=== PATIENT | male | born 1950 | race Caucasian/White ===

== ENCOUNTER 2019-10-11 00:25 | Inpatient (IN) | payer MEDICARE, BC, SELFPAY ==
[2019-10-11] VITALS (63 sets, daily range): BP systolic 108–213; BP diastolic 62–128; PULSE 87–122; RESP 15–35; TEMP 36.6–37.2; O2SAT 93–100; BMI 38.9; BMI 35.5; BMI 35.6
--- NOTE | 2019-10-11 00:42 | EKG12_ITS ---
Test Reason : SOB Blood Pressure : / mmHG Vent. Rate : 114 BPM Atrial Rate : 114 BPM P-R Int : 168 ms QRS Dur : 122 ms QT Int : 344 ms P-R-T Axes : 033 -06 114 degrees QTc Int : 474 ms Sinus tachycardia with frequent Premature ventricular complexes Septal infarct , age undetermined ST & T wave abnormality, consider lateral ischemia Abnormal ECG Confirmed by DEVONTE SIMENTAL, ALEX ([id number]), slot editor JAKOB CALHOUN ([id number]) on 10/16/2019 2:53:15 PM Referred By: SD Confirmed By:ALEX WHITNEY MD
--- NOTE | 2019-10-11 00:44 | ED.VIS.DYS ---
History of Present Illness Chief Complaint: Shortness of Breath Informant: Patient Onset: Today - VARSHA Activity at onset: Sleep Timing: Continuous Quality: - - can't breathe, thought I was going to Current Severity: Moderate Maximum Severity: Severe Worsened by: Nothing Relieved by: Oxygen Associated Symptoms: Chills, Cough - w/ occ sputum production, for about a week, Sweats. Negative for: Fever, Sore throat Chest Pain: None Narrative: Healthy 69-year-old male who takes no medications has had a minor cough for the past week, went to bed without any difficulty no night and woke up an hour or 2 later suddenly short of breath and unable to breathe. Pulse ox 82% on room air per EMS. Denies any leg swelling. Patient presents during recent coronavirus national emergency declaration. He states in the last several weeks, he has gone to [place] several times, grocery store, but for the most part is been staying home. He is concerned because he has a with multiple sclerosis on immunosuppressive's. Patient states the oxygen has been helping some, and he is less short of breath now than he was before EMS arrived. He has no known history of chronic lung or heart disease. Past Medical History - Allergies and Home Meds Allergies/Adverse Reactions: Allergies No Known Allergies Allergy (Verified 10/11/19 00:30) Past Medical History: None Lives: Spouse/ Significant Other Smoking Status: Former smoker - Family History Maternal Family History: Reports: Diabetes Paternal Family History: Reports: - - His father from an aneurysm. Review of Systems General: Reports: Chills, Malaise, Sweats. Denies: Fever Eyes: Denies: Visual changes - bilaterally, Diplopia ENT: Denies: Rhinorrhea, Sore throat Cardiovascular: Denies: Chest pain, Palpitations Respiratory: Reports: Dyspnea, Cough, Sputum Gastrointestinal: Denies: Abdominal pain, Nausea, Vomiting, Diarrhea, Melena, Hematochezia Genitourinary: Denies: Dysuria, Hematuria, Frequency Musculoskeletal: Denies: Back pain, Swelling, Extremity Pain Skin: Denies: Rash, Wounds Neurological: Denies: Headache, Weakness, Numbness Physical Exam Vital Signs/Narrative: Vital Signs Temp Pulse Resp BP Pulse Ox 10/11/19 00:38 98 F 99 32 H 213/128 H 100 10/11/19 00:26 98 F 122 H 35 H 213/128 H 99 Inital Vital Signs reviewed: Yes General: Well nourished, Well developed, Acute Distress - Mild respiratory distress, speaking in 5-10 word sentences Head: Normocephalic, Atraumatic Eyes: Perrl, EOMI ENT: Moist mucous membranes, No rhinorrhea Neck: Supple, Nontender, No lymphadenopathy, No JVD Cardiovascular: Regular rate, Regular rhythm, No murmurs, Tachycardia Respiratory: No distress, CTA bilaterally, Chest nontender, Diminished - Throughout, symmetrically Abdomen: Soft, Nontender, Nondistended, Normal bowel sounds Back: Nontender, Normal Inspection Extremities: Nontender, No edema Skin: Normal color, No rash, Diaphoresis, No Trauma Neurological: Alert, Oriented x3, Cranial nerves II-XII grossly intact, Normal Strength, Normal Sensation Psychological: Normal affect, Normal Mood Diagnostic/Tx/Re-eval Impressions Chest X-Ray 10/11/19 01:25 IMPRESSION: There is bilateral perihilar pulmonary edema versus infiltrate worse on the RIGHT. There is no demonstrated pleural abnormality. Heart is enlarged. Electronically Signed: Ced Ramsey MD at 1:52 EDT , Service support , Chest CTA 10/11/19 01:37 IMPRESSION: There is no demonstrated pulmonary embolism. There is diffuse thickening of the pulmonary artery branches and the bronchi which is nonspecific but could indicate bronchiolitis/vasculitis. Normal thoracic aorta and visualized great vessels. There is no demonstrated aortic dissection. The heart is borderline enlarged. There is a tiny pericardial effusion. The lungs are expanded. There is bilateral pulmonary edema suggesting heart failure or fluid overload. There is small bilateral pleural effusions. There are NO pneumothoraces. There is opacity at the lung bases bilaterally suggesting atelectasis or less likely infiltrate. There is scattered cystic lung changes. Electronically Signed: Ced Ramsey MD at 2:41 EDT , Service support , 10/11/19 01:25 Chest 1 View (Portable) [RAD] Stat 10/11/19 01:37 CTA Chest W/WO Contrast [CT] Stat Laboratory Results 10/11/19 10/11/19 10/11/19 00:35 00:35 00:35 WBC 14.1 H RBC 5.30 Hgb 15.9 Hct 50.2 MCV 94.7 H MCH 30.0 MCHC 31.7 L RDW Std Deviation 45.7 H RDW Coeff of Duane 13.1 Plt Count 314 MPV 10.3 Immature Gran % (Auto) 0.500 Neut % (Auto) 73.2 H Lymph % (Auto) 19.2 [place]ois % (Auto) 4.8 Eos % (Auto) 1.7 Baso % (Auto) 0.6 Absolute Neuts (auto) 10.3 H Absolute Lymphs (auto) 2.70 Nucleated RBC % 0 Fibrinogen 626 H D-Dimer Quant (PE/DVT) 2.97 H* Sodium 143 Potassium 3.5 Chloride 108 H Carbon Dioxide 28.0 Anion Gap 7 BUN 27 H Creatinine 1.31 H Estim Creat Clear Calc 54.95 Est GFR (MDRD) Af Amer 70 Est GFR (MDRD) Non-Af 58 L BUN/Creatinine Ratio 20.6 H Glucose 135 H Lactic Acid Calcium 9.6 Ferritin Total Bilirubin 0.30 AST 36 ALT 62 H Alkaline Phosphatase 113 Troponin I 0.276 H B-Natriuretic Peptide Total Protein 7.9 Albumin 3.8 Globulin 4.1 Albumin/Globulin Ratio 0.9 Triglycerides Cholesterol LDL Cholesterol VLDL Cholesterol HDL Cholesterol Procalcitonin COVID-19 (NATHANIEL) 10/11/19 10/11/19 10/11/19 00:35 00:35 00:35 WBC RBC Hgb Hct MCV MCH MCHC RDW Std Deviation RDW Coeff of Duane Plt Count MPV Immature Gran % (Auto) Neut % (Auto) Lymph % (Auto) [place] % (Auto) Eos % (Auto) Baso % (Auto) Absolute Neuts (auto) Absolute Lymphs (auto) Nucleated RBC % Fibrinogen D-Dimer Quant (PE/DVT) Sodium Potassium Chloride Carbon Dioxide Anion Gap BUN Creatinine Estim Creat Clear Calc Est GFR (MDRD) Af Amer Est GFR (MDRD) Non-Af BUN/Creatinine Ratio Glucose Lactic Acid 1.5 Calcium Ferritin Total Bilirubin AST ALT Alkaline Phosphatase Troponin I B-Natriuretic Peptide 988.6 H Total Protein Albumin Globulin Albumin/Globulin Ratio Triglycerides Cholesterol LDL Cholesterol VLDL Cholesterol HDL Cholesterol Procalcitonin < 0.04 COVID-19 (NATHANIEL) 10/11/19 10/11/19 10/11/19 00:35 00:35 00:55 WBC RBC Hgb Hct MCV MCH MCHC RDW Std Deviation RDW Coeff of Duane Plt Count MPV Immature Gran % (Auto) Neut % (Auto) Lymph % (Auto) [place] % (Auto) Eos % (Auto) Baso % (Auto) Absolute Neuts (auto) Absolute Lymphs (auto) Nucleated RBC % Fibrinogen D-Dimer Quant (PE/DVT) Sodium Potassium Chloride Carbon Dioxide Anion Gap BUN Creatinine Estim Creat Clear Calc Est GFR (MDRD) Af Amer Est GFR (MDRD) Non-Af BUN/Creatinine Ratio Glucose Lactic Acid Calcium Ferritin 297 Total Bilirubin AST ALT Alkaline Phosphatase Troponin I B-Natriuretic Peptide Total Protein Albumin Globulin Albumin/Globulin Ratio Triglycerides 96 Cholesterol 186 LDL Cholesterol 114 VLDL Cholesterol 19 HDL Cholesterol 53 Procalcitonin COVID-19 (NATHANIEL) Cancelled - Rhythm Strip Rhythm Strip: Sinus Tach Rate: 115 Ectopy: PVC(s) - EKG Initial EKG Interpretation: No Acute Injury Pattern, Sinus Tachycardia, Non-Specific ST Changes - Diffuse, without STEMI or acute ST depressions, - - Anteroseptal Q waves Prior: No Prior Treatment - Dyspnea: Oxygen - High flow, Albuterol - MDI Repeat Evaluation: Improved - Medical Decision Making Patient presents during the national coronavirus emergency declaration, and his presentation is highly suspicious for COVID although certainly the differential includes other things such as noncardiogenic pulmonary edema, cardiogenic pulmonary edema, infectious etiologies otherwise including viruses and bacterial pneumonia, etc. Initially prior to studies being obtained, we managed the patient symptoms by giving him several puffs of albuterol and placing him on high flow nasal cannula. This resulted in significant improvement in his work of breathing, while maintaining his oxygenation. He was feeling better. The work-up so far is ambiguous but it does not necessarily provide the classic COVID-19 appearance. COVID swab was sent as was viral respiratory panel, and blood cultures. CT interpretation is less suspicious for infectious airspace etiology according to radiologist. Discussed with hospitalist for ICU admission and further work-up, evaluation, and treatment. Certainly, it is also possible that this is noninfectious altogether and that is a result of hypertensive emergency given his elevated pressures. I did not treat his pressures in the emergency department, but after being admitted, had further discussion with hospitalist about starting a nitroglycerin drip which he agreed was a good idea. Critical care time (excluding procedures): 30-74 minutes - 30 minutes, including time spent discussing with patient, consultants, arranging admission ED Disposition - Plan for ED Patient: Disposition: Acute [facility] Diagnosis: Acute respiratory failure with hypoxia, SIRS (systemic inflammatory response syndrome), Accelerated hypertension
[2019-10-11 00:53] LABS: Absolute Neutrophil Count 10.3 X10^3/uL (2.0-7.7); Basophil# 0.09 X10^3/uL; Basophil% 0.6 % (0-1); Eosinophil# 0.24 X10^3/uL; Eosinophils% 1.7 % (0-5); Hematocrit 50.2 % (40-54); Hemoglobin 15.9 g/dL (13.0-16.5); Lymphocyte % 19.2 % (19-41); Mean Corp Hgb Conc 31.7 g/dL (32-36); Mean Corpuscular Volume 94.7 fL (80-94); Mean Platelet Vol. 10.3 fl (6.2-12.0); Monocyte# 0.68 X10^3/uL; Monocyte% 4.8 % (0-10); NRBC Flagged by Analyzer 0 % (0-5); Neutrophil # 10.28 X10^3/uL (2.7-7.7); Neutrophil % 73.2 % (47-70); Platelet Count 314 K/mm3 (150-450); RBC Distribution Width CV 13.1 % (11.6-14.6); RBC Distribution Width SD 45.7 fl (35.1-43.9); White Blood Count 14.1 K/mm3 (4.4-11.0)
--- NOTE | 2019-10-11 01:00 | CPS ---
Pt placed on AIRVO. Work of breathing improved.
[2019-10-11 01:11] LABS: BNP,B-Type NATRIURETIC PEPTIDE 988.6 pg/mL (0-100)
[2019-10-11 01:13] LABS: Fibrinogen 626 mg/dl (203-444)
[2019-10-11 01:14] LABS: Lactic Acid 1.5 mmol/L (0.4-1.9)
[2019-10-11 01:16] LABS: ALB/GLOB Ratio 0.9 RATIO (0.9-2.4); AST(SGOT) 36 U/L (15-37); Alanine Aminotransfer ALT/SGPT 62 U/L (16-61); Albumin, Serum 3.8 g/dL (3.2-5.0); Alkaline Phosphatase 113 U/L (45-117); Anion Gap 7 (5-15); BUN 27 mg/dL (7-18); BUN/Creat Ratio 20.6 RATIO (10-20); Calcium,Total 9.6 mg/dL (8.5-10.1); Chloride 108 mmol/L (98-107); Creatinine, Serum 1.31 mg/dL (0.70-1.30); EST Glomerular Filtration Rate 58 mL/min (>60); Est Glom Filt Rate - Afr Amer 70 mL/min (>60); Estimated Creatinine Clearance 54.95 ml/min; Globulin 4.1 g/dL (2.2-4.2); Glucose 135 mg/dL (74-106); Potassium 3.5 mmol/L (3.5-5.1); Protein, Total 7.9 g/dL (6.4-8.2); Sodium Level 143 mmol/L (136-145)
[2019-10-11 01:23] LABS: D-Dimer Quantitative (DVT/PE) 2.97 FEU/ug/m (0.27-0.49)
--- NOTE | 2019-10-11 01:25 | RAD_ITS ---
STUDY: X-RAY CHEST REASON FOR EXAM: Male, 69 years old. shortness of breath TECHNIQUE: Frontal view COMPARISON: None. FINDINGS: There is bilateral perihilar pulmonary edema versus infiltrate worse on the RIGHT. There is no demonstrated pleural abnormality. Heart is enlarged. Normal mediastinum and simona. Normal visualized pulmonary arteries. Normal visualized aortic arch and descending thoracic aorta. Normal visualized thoracic spine. Normal visualized ribs, clavicles, and shoulders. There is no demonstrated abnormality of the visualized soft tissue structures of the upper abdomen. RAD/Chest 1 View (Portable) IMPRESSION: There is bilateral perihilar pulmonary edema versus infiltrate worse on the RIGHT. There is no demonstrated pleural abnormality. Heart is enlarged. Electronically Signed: Ced Ramsey MD at 1:52 EDT , Service support ,
--- NOTE | 2019-10-11 01:37 | CT_ITS ---
STUDY: CTA CHEST REASON FOR EXAM: Male, 69 years old. SOB, ELEVATED D-DIMER, CHILLS, COUGH. RADIATION DOSAGE (If Supplied By Facility): CTDIvol = ( 15.04 ) mGy, DLP = ( 607.13 ) mGycm TECHNIQUE: The examination was performed with the intravenous administration of IV 100mL Isovue-370. Post-processing of the angiographic images was performed, with multiplanar reformation and 3D reconstruction. Individualized dose optimization techniques were used for this CT. COMPARISON: Chest x-ray 10/11/2019 FINDINGS: Normal enhancement of the main pulmonary artery and right and left pulmonary arteries. Normal enhancement of the bilateral peripheral pulmonary arteries. There is no demonstrated pulmonary embolism. There is diffuse thickening of the pulmonary artery branches and the bronchi which is nonspecific but could indicate bronchiolitis/vasculitis. Normal thoracic aorta and visualized great vessels. There is no demonstrated aortic dissection. The heart is borderline enlarged. There is a tiny pericardial effusion. Normal mediastinum. Normal hilar regions. Normal visualized trachea and bronchi. The lungs are expanded. There is bilateral pulmonary edema suggesting heart failure or fluid overload. There is small bilateral pleural effusions. There are NO pneumothoraces. There is opacity at the lung bases bilaterally suggesting atelectasis or less likely infiltrate. There is scattered cystic lung changes. Normal chest wall structures. Normal osseous structures. Normal visualized upper abdomen. CT/CTA Chest W/WO Contrast IMPRESSION: There is no demonstrated pulmonary embolism. There is diffuse thickening of the pulmonary artery branches and the bronchi which is nonspecific but could indicate bronchiolitis/vasculitis. Normal thoracic aorta and visualized great vessels. There is no demonstrated aortic dissection. The heart is borderline enlarged. There is a tiny pericardial effusion. The lungs are expanded. There is bilateral pulmonary edema suggesting heart failure or fluid overload. There is small bilateral pleural effusions. There are NO pneumothoraces. There is opacity at the lung bases bilaterally suggesting atelectasis or less likely infiltrate. There is scattered cystic lung changes. Electronically Signed: Ced Ramsey MD at 2:41 EDT , Service support ,
--- NOTE | 2019-10-11 03:10 | HP.PCM_ITS ---
Problem List (1) Heart failure Status: Suspected (2) Acute respiratory failure with hypoxia Status: Acute (3) Tobacco abuse Status: Chronic History of Present Illness Date of Admission: 10/11/19 Chief Complaint: sob The patient is a 69 year old M with a significant history of obesity; leukoplakia of oral mucosa including tongue; and tobacco abuse who presents to the emergency department with sudden onset shortness of breath that woke him up from his sleep. His symptoms began a few hours before presentation. Associated with symptoms is productive cough for 1 week. The patient is unable to describe the color of his sputum since he swallows it. At emergency department reportedly patient was severely diaphoretic with his clothes soaked. Emergency department doctor reported that per EMS patient oxygen saturation was 82% on room air. Patient required nonrebreather mask and airvo at emergency department to maintain appropriate oxygen saturation. Patient mets criteria for Sirs and for which IV normal saline bolus was initially given at the emergency department. Chest x-ray was remarkable for bilateral infiltrates. BNP was elevated. Troponin was elevated. Chest CTA was remarkable for pulmonary edema and borderline cardiomegaly as well as a tiny pericardial effusion. Past Medical History Past Medical History (Chronic Problems): Chronic Problems (Last Reviewed 10/11/19 @ 04:[address] Sly Guadalupe MD) Tobacco abuse (Chronic) Medical History: Medical History (Last Reviewed 10/11/19 @ 04:[address] Sly Guadalupe MD) Obesity (BMI 30-39.9) (Acute) E66.9 Allergies No Known Allergies Allergy (Verified 10/11/19 00:30) Home Medications: Ambulatory Orders Medication Instructions Recorded NK 10/11/19 Surgical History: no surgical history Lives: Spouse/ Significant Other Smoking Status: Current every day smoker Tobacco Use: Pipe Alcohol: Occasional - *Family History Maternal History Items: Diabetes Paternal History Items: - - His father from an aneurysm. Review of Systems Constitutional: Denies: Chills, Fever, Weight Change HEENT: Denies: Head Aches, Sinus Congestion, Sinus Drainage Cardiovascular: Denies: Chest Pain, Orthopnea, Palpitations Respiratory: Reports: Cough, Shortness of Breath, Sputum production Gastrointestinal: Denies: Abdominal Pain, Nausea, Vomiting Genitourinary: Denies: Dysuria Musculoskeletal: Denies: Joint Pain, Joint Tenderness Skin: Denies: Rash, Wounds Neurological: Denies: Numbness, Tingling, Focal weakness Psychiatric: Denies: Anxiety, Depression, Homicidal Ideations, Suicidal Ideations Hematologic/ Lymphatic: Denies: Easy Bruising, Easy Bleeding VTE Information - Inpt Only VTE Present on Admission: No VTE Mechan Device Prophylaxis: None VTE Pharm Prophylaxis ordered?: Yes Patient Problems: Active and Suspected Problems (Last Reviewed 10/11/19 @ 04:[address] Sly Guadalupe MD) Acute respiratory failure with hypoxia (Acute) Heart failure (Suspected) Obesity (BMI 30-39.9) (Acute) - Physical Exam Vitals/I&O's: Vital Signs Temp Pulse Resp BP Pulse Ox 98.2 F 104 H 22 H 164/106 H 96 10/11/19 02:33 10/11/19 02:33 10/11/19 02:33 10/11/19 02:33 10/11/19 02:33 Oxygen Flow Rate (L/min) 60 Oxygen Delivery Method CPAP Weight: 123.1 kg Body Mass Index (BMI) 38.9 Intake and Output for Last 24 Hours 10/09/19 10/10/19 10/11/19 23:59 23:59 23:59 Intake Total 500 / 500 Balance 500 / 500 General: Alert, Oriented x3, Cooperative HEENT: Atraumatic, PERRLA, EOMI, Normocephalic Neck: Supple, No Nuchal Rigidity, Trachea Midline Lungs: Rales - Right base, Tachypneic, Wheezes - Right base Cardiovascular: Normal S1, Normal S2, No murmurs, Tachycardic Abdomen: Bowel Sounds Present, Soft, Non Tender Extremities: No edema, Capillary Refill Less than 3 Seconds Skin: No rashes, No breakdown Musculoskeletal: No Tenderness to Palpation of Joints or Extremities Neurological: Cranial nerves II-XII grossly intact Psych/Mental Status: Normal Affect, Appropriate Laboratory Results 10/11/19 00:35: WBC 14.1 H, RBC 5.30, Hgb 15.9, Hct 50.2, MCV 94.7 H, MCH 30.0, MCHC 31.7 L, RDW Std Deviation 45.7 H, RDW Coeff of Duane 13.1, Plt Count 314, MPV 10.3, Immature Gran % (Auto) 0.500, Neut % (Auto) 73.2 H, Lymph % (Auto) 19.2, [place] % (Auto) 4.8, Eos % (Auto) 1.7, Baso % (Auto) 0.6, Absolute Neuts (auto) 10.3 H, Absolute Lymphs (auto) 2.70, Nucleated RBC % 0 10/11/19 00:35: Fibrinogen 626 H, D-Dimer Quant (PE/DVT) 2.97 H* 10/11/19 00:35: Sodium 143, Potassium 3.5, Chloride 108 H, Carbon Dioxide 28.0, Anion Gap 7, BUN 27 H, Creatinine 1.31 H, Estim Creat Clear Calc 54.95, Est GFR (MDRD) Af Amer 70, Est GFR (MDRD) Non-Af 58 L, BUN/Creatinine Ratio 20.6 H, Glucose 135 H, Calcium 9.6, Total Bilirubin 0.30, AST 36, ALT 62 H, Alkaline Phosphatase 113, Troponin I 0.276 H, Total Protein 7.9, Albumin 3.8, Globulin 4.1, Albumin/Globulin Ratio 0.9 10/11/19 00:35: Lactic Acid 1.5 10/11/19 00:35: B-Natriuretic Peptide 988.6 H 10/11/19 00:55: COVID-19 (NATHANIEL) Cancelled Assessment/Plan All Active Problems (Last Reviewed 10/11/19 @ 04:[address] Sly Guadalupe MD) Acute respiratory failure with hypoxia (Acute) Obesity (BMI 30-39.9) (Acute) The patient is a 69 year old M with a significant history of obesity and tobacco abuse who presents emergency department with sudden onset shortness of breath; cough; and diaphoresis was found to be severe hypoxia; and met SIRS criteria of tachycardia; tachypnea and leukocytosis; and with elevated BNP and radiographic evidence of pulmonary edema consistent with acute hypoxemic respiratory failure likely secondary to congestive heart failure. Acute hypoxemic respiratory failure likely secondary to congestive heart failure. Place on monitored bed on the progressive care unit. Weight on admission to the floor; and then daily Strict I&O's CXR independently reviewed confirms cardiomegaly and bilateral pulmonary infiltrates. D-dimer was elevated. Follow-up chest CTA was also consistent with pulmonary edema, tiny pericardial effusion; and small bilateral pleural effusion. EKG independently reviewed confirms tachycardia with PVCs. BNP was 988.6. Troponin was 0.276; trend. Will give Lasix 80 mg IV push x1 and then 40 mg twice daily. Supplement potassium. Consider echocardiogram if cardiac screen is negative. Consider cardiology consult. Nitroglycerin paste x1 for possible flash pulmonary edema. Fluid restriction of 1500 mls daily 2 g cardiac diet Continue airvo with PEEP. COVID screen was ordered at the emergency department; follow. Procalcitonin and ferritin ordered. Sirs Heart rate of more than 90; respiratory rate of more than 20; white counts of more than 12,000. No definite source of bacterial infection. Likely secondary to hypoxemic respiratory failure. Treatment as above. Follow blood cultures. Elevated troponin Likely secondary to heart failure. Trend. Elevated transaminitis ALT mildly elevated at 62 (normal 16-61). Patient to follow-up longitudinally. AST is normal. Elevated creatinine On presentation his creatinine was 1.31; mild No previous creatinine on file to compare with. Could be baseline or secondary to heart failure. Trend. Tobacco abuse Patient smokes pipe. Counseled. Declined nicotine patch. Obesity: BMI 38.9. Complicates care. Lifestyle changes recommended. DVT prophylaxis: Subcutaneous Lovenox. Inpatient E&M: 85037 Init Hosp L3
[2019-10-11 03:45] LABS: Ferritin 297 ng/mL (26-388)
[2019-10-11 03:47] LABS: Cholesterol 186 mg/dL (200); High Density Lipoprotein 53 mg/dL; Triglycerides 96 mg/dL; Very Low Density Lipoprotein 19 mg/dL (5-40)
[2019-10-11] MEDS: Nitroglycerin Oint 1 INCH PACKET TRANSDERM. (03:48)
[2019-10-11] MEDS: Furosemide 100 MG/10 ML Vial 80 MG IV (03:49)
[2019-10-11] MEDS: guaiFENesin 1,200 MG Tablet 1200 MG PO ×2 (03:49→21:31)
[2019-10-11 03:56] LABS: Procalcitonin < 0.04 ng/mL (0.00-0.09)
[2019-10-11] MEDS: 0.9% Saline Lock 10 ML Syringe IV ×3 (03:58→18:14)
[2019-10-11] MEDS: Nitroglycerin Infusion 250 ML 6 MG CONT INF (04:39)
--- NOTE | 2019-10-11 04:51 | ECHOCS_ITS ---
Version 2 Reason For Study: DYSPNEA Procedure This was a 2D Doppler, Color Flow transthoracic echocardiogram. The study was technically difficult. Contrast injection was performed. Exam performed portable in ICU/CCU. Left Ventricle Normal LV size. The estimated ejection fraction is 20-25 %. Stage 1 diastolic dysfunction. There is severe global hypokinesis of the left ventricle. Right Ventricle Normal RV size. Normal systolic function. Atria Normal left atrium. Normal right atrium. No doppler evidence for ASD. Mitral Valve There is no mitral valve stenosis. Trivial mitral valve insufficiency. Tricuspid Valve There is no tricuspid stenosis. Trivial tricuspid valve insufficiency. Unable to estimate RV systolic pressure due to insufficient tricuspid regurgitant envelope. Aortic Valve Trisinus/trileaflet aortic valve. Aortic sclerosis, no stenosis. There is no aortic stenosis. No aortic valve insufficiency. Pulmonic Valve There is no pulmonic valvular stenosis. No pulmonic valve insufficiency. Great Vessels Normal aortic root. Pericardium/Pleural No pericardial effusion. Medication Diluted definity 4.0ml given slow IV push to enhance endocardial definition. MMode/2D Measurements & Calculations LVIDd: 6.1 cm IVSd: 1.1 cm Ao root diam: 4.2 cm LVIDs: 5.6 cm LVPWd: 1.2 cm RVDd: 4.0 cm FS: 8.5 % LAV(MOD-bp): 79.1 ml LVAd ap4: 65.9 cm2 SV(MOD-sp4): 75.5 ml LAV(MOD-bp) Indexed: 34.7 ml/m2 EDV(MOD-sp4): 341.0 ml LAV(MOD-sp2): 91.1 ml EDV(sp4-el): 349.8 ml LAV(MOD-sp4): 56.4 ml LVAs ap4: 55.5 cm2 ESV(MOD-sp4): 265.5 ml ESV(sp4-el): 275.4 ml EF(MOD-sp4): 22.1 % EF(sp4-el): 21.3 % SV(sp4-el): 74.4 ml LA A4 area: 19.1 cm2 LA dimension(2D): 4.4 cm RA A4 area: 20.3 cm2 Doppler Measurements & Calculations MV E max jay: 39.7 cm/sec Lat Peak E' Jay: 7.6 cm/sec Med Peak E' Jay: 3.5 cm/sec MV A max jay: 69.1 cm/sec E/E' lat: 5.3 E/E' med: 11.2 MV E/A: 0.57 Ao V2 max: 147.5 cm/sec LV V1 max: 86.0 cm/sec Ao max P.7 mmHg LV V1 max P.0 mmHg Interpretation Summary The estimated ejection fraction is 20-25 %. Stage 1 diastolic dysfunction. There is severe global hypokinesis of the left ventricle. Trivial mitral valve insufficiency. The study was technically difficult. Contrast injection was performed. Ordering Physician: Sly Guadalupe Referring Physician: KAVON HARMON Performed By: Ila Oakley, RDKAITLIN, RVT
--- NOTE | 2019-10-11 06:14 | PCM.CON.CC ---
Reason for Consult Date of Consultation: 10/11/19 Reason for Consultation: Acute hypoxemic respiratory failure History of Present Illness: The patient is a 69-year-old male, with a history as outlined below, who presented to the emergency department on October 10 with complaints of shortness of breath, which was rather acute in onset and awoke him from sleep. The patient denies ever having experienced an episode like this previously. He denies any known cardiac or pulmonary diseases. He is a current pipe smoker on a daily basis. He has never been evaluated previously with pulmonary function studies. He does not currently utilize inhalers at his baseline, nor is he oxygen dependent. The patient does report that he has always had elevated blood pressures but does not currently take any medications. On presentation to the emergency department, the patient was noted to be afebrile but was significantly hypertensive with a blood pressure of 213/128. The patient was noted to be tachypneic and hypoxemic as well. Laboratory evaluation revealed an elevated white blood cell count of 14,000. D-dimer was elevated to 2.97. Creatinine was noted to be 1.31. Initial troponin was increased to 0.274. BNP was elevated to 988. Procalcitonin level was normal. CTA chest revealed no evidence for pulmonary embolism. There was evidence of bilateral pulmonary edema along with bilateral pleural effusions. The patient received IV Lasix and was started on a nitro infusion. He was placed on Airvo and admitted to the medical intensive care unit for further management. Overnight, the patient has diuresed well. Blood pressures have improved and he is currently maintaining appropriate oxygen saturations on 3 L/min. Surface echocardiogram has been ordered and is currently pending. Past Medical History Past Medical History (Chronic Problems): Chronic Problems (Last Reviewed 10/11/19 @ 04:[address] Sly Guadalupe MD) Tobacco abuse (Chronic) Medical History: Medical History (Last Reviewed 10/11/19 @ 04:[address] Sly Guadalupe MD) Obesity (BMI 30-39.9) (Acute) E66.9 Allergies No Known Allergies Allergy (Verified 10/11/19 00:30) Home Medications: Ambulatory Orders Medication Instructions Recorded NK 10/11/19 Surgical History: no surgical history Lives: Spouse/ Significant Other Smoking Status: Current every day smoker Tobacco Use: Pipe Alcohol: Occasional - *Family History Maternal History Items: Diabetes Paternal History Items: - - His father from an aneurysm. Review of Systems Constitutional: Denies: Chills, Fever Eyes: Denies: Blurred vision, Double vision HEENT: Denies: Head Aches, Sinus Congestion, Sinus Drainage Cardiovascular: Denies: Chest Pain Respiratory: Reports: Shortness of Breath. Denies: Cough Gastrointestinal: Denies: Abdominal Pain, Nausea, Vomiting Genitourinary: Denies: Dysuria Musculoskeletal: Denies: Joint Pain, Joint Tenderness Skin: Denies: Rash, Wounds Neurological: Denies: Numbness, Tingling, Focal weakness Psychiatric: Denies: Anxiety, Depression, Homicidal Ideations, Suicidal Ideations Hematologic/ Lymphatic: Denies: Easy Bruising, Easy Bleeding Patient Problems: Active and Suspected Problems (Last Reviewed 10/11/19 @ 04:[address] Sly Guadalupe MD) Acute respiratory failure with hypoxia (Acute) Heart failure (Suspected) Obesity (BMI 30-39.9) (Acute) Objective: The patient's most recent lab work, culture data and imaging studies have all been personally reviewed. Coronavirus PCR was negative. Respiratory viral panel was negative. Blood cultures are pending. - Physical Exam Vitals/I&O's: Vital Signs Temp Pulse Resp BP Pulse Ox 98.1 F 88 15 133/87 H 99 10/11/19 03:30 10/11/19 06:00 10/11/19 06:00 10/11/19 06:00 10/11/19 06:00 Oxygen Flow Rate (L/min) 4 Oxygen Delivery Method Nasal Cannula Weight: 247 lb 12.793 oz Body Mass Index (BMI) 35.5 Intake and Output for Last 24 Hours 10/09/19 10/10/19 10/11/19 23:59 23:59 23:59 Intake Total 508.1 / 508.1 Output Total 300 / 300 Balance 208.1 / 208.1 General: Alert, Oriented x3, Cooperative, No apparent distress, - - Sitting at the bedside eating breakfast. HEENT: Atraumatic, PERRLA, Normocephalic Oral: No Gingival or Mucosal Lesions/ Ulcerations Neck: Supple, No Nodes, Trachea Midline Lungs: Normal air movement, No rhonchi, No wheeze, No rales Cardiovascular: Regular rate, Regular Rhythm, Normal S1, Normal S2 Abdomen: Bowel Sounds Present, Soft, Non Tender, Obese Extremities: No clubbing, No cyanosis, No edema Skin: No breakdown Musculoskeletal: No Muscle Wasting Lymphatic: No Cervical, Supraclavicular, or Inguinal Adenopathy Neurological: Neuro grossly intact Psych/Mental Status: Normal Affect, Appropriate Labs (Last 48 Hours) 10/11/19 10/11/19 10/11/19 00:35 00:35 00:35 WBC 14.1 H RBC 5.30 Hgb 15.9 Hct 50.2 MCV 94.7 H MCH 30.0 MCHC 31.7 L RDW Std Deviation 45.7 H RDW Coeff of [place] 13.1 Plt Count 314 MPV 10.3 Immature Gran % (Auto) 0.500 Neut % (Auto) 73.2 H Lymph % (Auto) 19.2 [place] % (Auto) 4.8 Eos % (Auto) 1.7 Baso % (Auto) 0.6 Absolute Neuts (auto) 10.3 H Absolute Lymphs (auto) 2.70 Nucleated RBC % 0 Fibrinogen 626 H D-Dimer Quant (PE/DVT) 2.97 H* Sodium 143 Potassium 3.5 Chloride 108 H Carbon Dioxide 28.0 Anion Gap 7 BUN 27 H Creatinine 1.31 H Estim Creat Clear Calc 54.95 Est GFR (MDRD) Af Amer 70 Est GFR (MDRD) Non-Af 58 L BUN/Creatinine Ratio 20.6 H Glucose 135 H Lactic Acid Calcium 9.6 Ferritin Total Bilirubin 0.30 AST 36 ALT 62 H Alkaline Phosphatase 113 Troponin I 0.276 H B-Natriuretic Peptide Total Protein 7.9 Albumin 3.8 Globulin 4.1 Albumin/Globulin Ratio 0.9 Triglycerides Cholesterol LDL Cholesterol VLDL Cholesterol HDL Cholesterol Procalcitonin COVID-19 (NATHANIEL) 10/11/19 10/11/19 10/11/19 00:35 00:35 00:35 WBC RBC Hgb Hct MCV MCH MCHC RDW Std Deviation RDW Coeff of [place] Plt Count MPV Immature Gran % (Auto) Neut % (Auto) Lymph % (Auto) [place] % (Auto) Eos % (Auto) Baso % (Auto) Absolute Neuts (auto) Absolute Lymphs (auto) Nucleated RBC % Fibrinogen D-Dimer Quant (PE/DVT) Sodium Potassium Chloride Carbon Dioxide Anion Gap BUN Creatinine Estim Creat Clear Calc Est GFR (MDRD) Af Amer Est GFR (MDRD) Non-Af BUN/Creatinine Ratio Glucose Lactic Acid 1.5 Calcium Ferritin Total Bilirubin AST ALT Alkaline Phosphatase Troponin I B-Natriuretic Peptide 988.6 H Total Protein Albumin Globulin Albumin/Globulin Ratio Triglycerides Cholesterol LDL Cholesterol VLDL Cholesterol HDL Cholesterol Procalcitonin < 0.04 COVID-19 (NATHANIEL) 10/11/19 10/11/19 10/11/19 00:35 00:35 00:55 WBC RBC Hgb Hct MCV MCH MCHC RDW Std Deviation RDW Coeff of [place] Plt Count MPV Immature Gran % (Auto) Neut % (Auto) Lymph % (Auto) [place] % (Auto) Eos % (Auto) Baso % (Auto) Absolute Neuts (auto) Absolute Lymphs (auto) Nucleated RBC % Fibrinogen D-Dimer Quant (PE/DVT) Sodium Potassium Chloride Carbon Dioxide Anion Gap BUN Creatinine Estim Creat Clear Calc Est GFR (MDRD) Af Amer Est GFR (MDRD) Non-Af BUN/Creatinine Ratio Glucose Lactic Acid Calcium Ferritin 297 Total Bilirubin AST ALT Alkaline Phosphatase Troponin I B-Natriuretic Peptide Total Protein Albumin Globulin Albumin/Globulin Ratio Triglycerides 96 Cholesterol 186 LDL Cholesterol 114 VLDL Cholesterol 19 HDL Cholesterol 53 Procalcitonin COVID-19 (NATHANIEL) Cancelled 10/11/19 03:35 WBC RBC Hgb Hct MCV MCH MCHC RDW Std Deviation RDW Coeff of [place] Plt Count MPV Immature Gran % (Auto) Neut % (Auto) Lymph % (Auto) [place] % (Auto) Eos % (Auto) Baso % (Auto) Absolute Neuts (auto) Absolute Lymphs (auto) Nucleated RBC % Fibrinogen D-Dimer Quant (PE/DVT) Sodium Potassium Chloride Carbon Dioxide Anion Gap BUN Creatinine Estim Creat Clear Calc Est GFR (MDRD) Af Amer Est GFR (MDRD) Non-Af BUN/Creatinine Ratio Glucose Lactic Acid Calcium Ferritin Total Bilirubin AST ALT Alkaline Phosphatase Troponin I 0.274 H B-Natriuretic Peptide Total Protein Albumin Globulin Albumin/Globulin Ratio Triglycerides Cholesterol LDL Cholesterol VLDL Cholesterol HDL Cholesterol Procalcitonin COVID-19 (NATHANIEL) Microbiology 10/11/19 00:55 Mucosa - Nasopharyngeal Coronavirus COVID-19 PCR - Final 10/11/19 01:15 Mucosa - Nose Respiratory Panel (PCR) - Preliminary Clinical Impression(s) from Imaging Studies Chest X-Ray 10/11/19 01:25 IMPRESSION: There is bilateral perihilar pulmonary edema versus infiltrate worse on the RIGHT. There is no demonstrated pleural abnormality. Heart is enlarged. Electronically Signed: Ced Ramsey MD at 1:52 EDT , Service support , Chest CTA 10/11/19 01:37 IMPRESSION: There is no demonstrated pulmonary embolism. There is diffuse thickening of the pulmonary artery branches and the bronchi which is nonspecific but could indicate bronchiolitis/vasculitis. Normal thoracic aorta and visualized great vessels. There is no demonstrated aortic dissection. The heart is borderline enlarged. There is a tiny pericardial effusion. The lungs are expanded. There is bilateral pulmonary edema suggesting heart failure or fluid overload. There is small bilateral pleural effusions. There are NO pneumothoraces. There is opacity at the lung bases bilaterally suggesting atelectasis or less likely infiltrate. There is scattered cystic lung changes. Electronically Signed: Ced Ramsey MD at 2:41 EDT , Service support , Current Medications Dextrose (D50w Syringe) 0 gm IV X1 PRN; Protocol PRN Reason: Hypoglycemia Enoxaparin Sodium (Lovenox) 40 mg SC DAILY KIM Furosemide (Lasix) 40 mg IV BID@1000,1800 KIM Glucagon () 1 mg IM .X1 PRN PRN Reason: Hypoglycemia Guaifenesin (Mucinex) 1,200 mg PO BID [facility] Last Admin: 10/11/19 03:49 Dose: 1,200 mg Documented by: Sodium Chloride () 250 mls @ 15 mls/hr IV .[id number] PRN PRN Reason: Saline Flush Sodium Chloride () 250 mls @ 15 mls/hr IV .[id number] PRN PRN Reason: Additional IVPB Infusion Nitroglycerin/Dextrose () 250 mls @ 6 mls/hr CONT INF .[id number] [facility]; Protocol Last Titration: 10/11/19 06:00 Dose: 15 mcg/min, 9 mls/hr Documented by: Potassium Chloride (K-Dur) 40 meq PO DAILYCM KIM Sodium Chloride () 10 - 40 ml IV UD PRN PRN Reason: SALINE FLUSH Last Admin: 10/11/19 03:58 Dose: 20 ml Documented by: Assessment/Plan Active and Suspected Problems (Last Reviewed 10/11/19 @ 04:[address] Sly Guadalupe MD) Acute respiratory failure with hypoxia (Acute) Heart failure (Suspected) Obesity (BMI 30-39.9) (Acute) RECOMMENDATIONS: 1. Start p.o. antihypertensive regimen and wean from nitro infusion. 2. Continue diuretic therapy as tolerated by renal function and hemodynamics. 3. Echocardiogram is pending. 4. Wean supplemental oxygen to maintain saturations at or above 90%. 5. Encourage incentive spirometer use and mobilize patient as tolerated. IMPRESSIONS: 1. Acute hypoxemic respiratory failure Likely secondary to decompensated heart failure in the setting of poorly controlled hypertension. The patient has responded appropriately to IV diuretic therapy, which will be continued. Echocardiogram is currently pending. Cardiology consultation is also pending. The patient will be weaned from supplemental oxygen to maintain saturations at or above 90%. Encourage incentive spirometer use and mobilize patient as tolerated. 2. Hypertension/troponin elevation The patient presented to the hospital with systolic pressures in excess of 200 mmHg. He is not currently on any antihypertensives at his baseline. Will defer antihypertensive regimen initiation to cardiology. Wean from nitro infusion as tolerated. Await results of echocardiogram. 3. History of tobacco dependency/obesity Complicates care, management, recovery and prognosis. The patient is a daily pipe smoker. If agreeable, the patient can follow-up after discharge in the pulmonary medicine clinic so that baseline PFTs can be obtained. This note was generated with [employer] dictation software. It may contain incorrect words, spelling, and punctuation that were not noted in checking the note before signing. Inpatient E&M: 29435 Init Hosp L3
--- NOTE | 2019-10-11 09:02 | CON.PCM_ITS ---
<Jeffrey Loredo - Last Filed: 10/11/19 11:42> Reason for Consult Date of Consultation: 10/11/19 Reason for Consultation: CHF History of Present Illness: The patient is a 69 year old M who presented to [facility] Emergency Department on 10/11/2019 with shortness of breath that woke him up from sleep, minor cough over the past week, and pulse ox at 82% per EMS. He was transferred to Emergency Room for further evaluation. He has a past medical history of leukoplakia of oral mucosa including tongue, obesity, and tobacco abuse. His blood pressure upon presentation to emergency department his blood pressure was 213/128, respiratory rate 35, and pulse of 122. His chest CTA was negative for pulmonary embolism or aortic dissection. His chest x-ray revealed bilateral perihilar pulmonary edema versus infiltrate worse on the right. His EKG revealed tachycardia with PVCs. His WBC was noted be 14.1. Hemoglobin noted be 15.9. Platelet count 314. His d-dimer was elevated at 2.97. His laboratory work included WBC: 14.1, hemoglobin: 15.9, platelet count: 314, d-dimer: 2.97, sodium: 143, potassium: 3.5, BUN: 27, creatinine: 1.31, troponin: 0.276, and BNP of 988.6. He underwent COVID?19 testing. He was admitted for further evaluation and treatment of respiratory failure secondary to congestive heart failure. Patient was started on Lasix 40 mg p.o. twice daily after Lasix 80 mg IV push once. He was started a nitroglycerin drip for blood pressure control. An echocardiogram was ordered. Cardiology was consulted for further input. Past Medical History Allergies/Adverse Reactions: Allergies No Known Allergies Allergy (Verified 10/11/19 00:30) Home Medications: Ambulatory Orders Medication Instructions Recorded NK 10/11/19 Past Medical History (Chronic Problems): Chronic Problems (Last Reviewed 10/11/19 @ 04:[address] Sly Guadalupe MD) Tobacco abuse (Chronic) Surgical History: no surgical history - *Family History Maternal History Items: Diabetes Paternal History Items: - - His father from an aneurysm. Lives: Spouse/ Significant Other Smoking Status: Current every day smoker Tobacco Use: Pipe Alcohol: Occasional Objective: Vital Signs Temp Pulse Resp BP Pulse Ox 98.1 F 90 22 H 130/99 H 96 10/11/19 08:00 10/11/19 08:00 10/11/19 08:00 10/11/19 08:00 10/11/19 08:00 Oxygen Flow Rate (L/min) 3 Oxygen Delivery Method Nasal Cannula Weight: 240 lb 8.389 oz Body Mass Index (BMI) 35.5 Intake and Output for Last 24 Hours 10/09/19 10/10/19 10/11/19 23:59 23:59 23:59 Intake Total 766.10 / 766.10 Output Total 2200 / 2200 Balance -1433.90 / -1433.90 10/11/19 00:35: WBC 14.1 H, RBC 5.30, Hgb 15.9, Hct 50.2, MCV 94.7 H, MCH 30.0, MCHC 31.7 L, Plt Count 314, MPV 10.3, Immature Gran % (Auto) 0.500, Neut % (Auto) 73.2 H, Lymph % (Auto) 19.2, [place] % (Auto) 4.8, Eos % (Auto) 1.7, Baso % (Auto) 0.6, Absolute Neuts (auto) 10.3 H, Nucleated RBC % 0 10/11/19 00:35: D-Dimer Quant (PE/DVT) 2.97 H* 10/11/19 00:35: Sodium 143, Potassium 3.5, Chloride 108 H, Carbon Dioxide 28.0, Anion Gap 7, BUN 27 H, Creatinine 1.31 H, Est GFR (MDRD) Af Amer 70, Est GFR (MDRD) Non-Af 58 L, BUN/Creatinine Ratio 20.6 H, Glucose 135 H, Calcium 9.6, Total Bilirubin 0.30, Troponin I 0.276 H 10/11/19 00:35: Lactic Acid 1.5 10/11/19 00:35: B-Natriuretic Peptide 988.6 H 10/11/19 00:35: Ferritin 297 10/11/19 00:35: Triglycerides 96, Cholesterol 186, LDL Cholesterol 114, VLDL Cholesterol 19, HDL Cholesterol 53 10/11/19 03:35: Troponin I 0.274 H 10/11/19 06:15: Troponin I 0.443 H Rhythm: EKG: ECHO: Stress Test: Cardiac Cath: PCI: CT Surgery: Holter monitor: EPS: PPM: CXR: Chest CT Scan: Assessment/Plan 1. Congestive heart failure. * Patient is currently negative approximately and 1.5 L. * Continue with Lasix 40 mg IV push twice daily for diuresis. This will ultimately be transitioned to p.o. * Continue with echocardiogram. * Based on echocardiogram results, troponin trend, and overall response, we can consider stress test to rule out coronary artery disease etiology versus C. * CHF may also be result of hypertension, viral, or other etiology. 2. Elevated troponin * Patient's troponin trend has been 0.276, 0.274, and 0.443. * This has remained relatively flat. This may be result of congestive heart failure or elevated blood pressure upon ER presentation. * We will consider further evaluation to rule out coronary artery disease component with stress test versus heart catheterization once medically improved and overall results of the echocardiogram. 3. Hypertension * We will begin Coreg 6.25 mg p.o. twice daily for rate and blood pressure control. * Based on echocardiogram results further medication options may include Lisinopril or Losartan. If EF is reduced, we can consider Entresto. * Depending on trend of creatinine and echocardiogram results, will help further decide on DONNIE inhibitor/ARB/ARNI. * Hopefully Coreg will allow for reducing NTG drip and once echocardiogram is reviewed we can add additional agents to assist down titration on NTG drip. Patient case was reviewed with Dr. Bellamy, who also personally evaluated patient. Please see his dictation for further input and details. Thank you for allowing us to participate in the patients plan of care, if you have any questions please do not hesitate to call. This note was generated using a voice recognition system and there may be incorrect words, spelling or punctuation that were not noted when reviewing the office note prior to saving. <Suzi Bellamy - Last Filed: 10/11/19 15:32> Problem List (1) Acute respiratory failure with hypoxia Status: Acute Reason for Consult History of Present Illness: The patient is a 69 year old M [] Objective: Vital Signs Temp Pulse Resp BP Pulse Ox 98.1 F 96 22 H 141/88 H 96 10/11/19 12:00 10/11/19 15:00 10/11/19 15:00 10/11/19 15:15 10/11/19 15:00 Oxygen Flow Rate (L/min) 1 Oxygen Delivery Method Room Air Weight: 240 lb 8.389 oz Body Mass Index (BMI) 35.5 Intake and Output for Last 24 Hours 10/09/19 10/10/19 10/11/19 23:59 23:59 23:59 Intake Total 1217.85 / 1217.85 Output Total 3775 / 3775 Balance -2557.15 / -2557.15 10/11/19 00:35: WBC 14.1 H, RBC 5.30, Hgb 15.9, Hct 50.2, MCV 94.7 H, MCH 30.0, MCHC 31.7 L, Plt Count 314, MPV 10.3, Immature Gran % (Auto) 0.500, Neut % (Auto) 73.2 H, Lymph % (Auto) 19.2, [place] % (Auto) 4.8, Eos % (Auto) 1.7, Baso % (Auto) 0.6, Absolute Neuts (auto) 10.3 H, Nucleated RBC % 0 10/11/19 00:35: D-Dimer Quant (PE/DVT) 2.97 H* 10/11/19 00:35: Sodium 143, Potassium 3.5, Chloride 108 H, Carbon Dioxide 28.0, Anion Gap 7, BUN 27 H, Creatinine 1.31 H, Est GFR (MDRD) Af Amer 70, Est GFR (MDRD) Non-Af 58 L, BUN/Creatinine Ratio 20.6 H, Glucose 135 H, Calcium 9.6, Total Bilirubin 0.30, Troponin I 0.276 H 10/11/19 00:35: Lactic Acid 1.5 10/11/19 00:35: B-Natriuretic Peptide 988.6 H 10/11/19 00:35: Ferritin 297 10/11/19 00:35: Triglycerides 96, Cholesterol 186, LDL Cholesterol 114, VLDL Cholesterol 19, HDL Cholesterol 53 10/11/19 03:35: Troponin I 0.274 H 10/11/19 06:15: Troponin I 0.443 H Rhythm: EKG: ECHO: Stress Test: Cardiac Cath: PCI: CT Surgery: Holter monitor: EPS: PPM: CXR: Chest CT Scan: Assessment/Plan We will add Entresto. Coronary angiogram tomorrow if creatinine is stable. Continue IV Lasix and Coreg. Wean off nitroglycerin drip if possible.
--- NOTE | 2019-10-11 09:15 | PN_ITS ---
Patient Problems: Active and Suspected Problems (Last Reviewed 10/11/19 @ 04:[address] Sly Guadalupe MD) Acute respiratory failure with hypoxia (Acute) Heart failure (Suspected) Obesity (BMI 30-39.9) (Acute) Reason for Visit: Acute hypoxic respiratory secondary to pulmonary edema most probably acute heart failure Objective: Seen and examined. Patient denies history of chronic heart disease or acute heart failure or coronary artery disease/NH. He is a pipe smoker since teenage about 3 pipes daily. Chest x-ray was remarkable for bilateral infiltrates. BNP elevated. Chest CT shows pulmonary edema When I saw the patient, patient shortness of breath is improved currently on 3 L of oxygen. Heart rate and blood pressure controlled. Patient was on high flow oxygen, Airvo at time of admission Vitals/I&O's: Vital Signs Temp Pulse Resp BP Pulse Ox 98.1 F 90 22 H 130/99 H 96 10/11/19 08:00 10/11/19 08:00 10/11/19 08:00 10/11/19 08:00 10/11/19 08:00 Oxygen Flow Rate (L/min) 3 Oxygen Delivery Method Nasal Cannula Weight: 240 lb 8.389 oz Body Mass Index (BMI) 35.5 Intake and Output for Last 24 Hours 10/09/19 10/10/19 10/11/19 23:59 23:59 23:59 Intake Total 766.10 / 766.10 Output Total 2200 / 2200 Balance -1433.90 / -1433.90 General: Alert, Oriented x3, Cooperative HEENT: Atraumatic, PERRLA, EOMI, Normocephalic Neck: Supple, No JVD, Negative Carotid Bruits Lungs: Diminished - Air entry diminished in bilateral lung bases, Rales - Bilateral lower lobes rales present Cardiovascular: Regular rate, Regular Rhythm, Normal S1, Normal S2, No murmurs Abdomen: Bowel Sounds Present, Soft, Non Tender, Non-Distended Extremities: Capillary Refill Less than 3 Seconds, Edema Skin: No rashes, No breakdown Musculoskeletal: No Tenderness to Palpation of Joints or Extremities Neurological: Cranial nerves II-XII grossly intact, Deep Tendon Reflexes 2+/4 and Symmetrical, Neuro grossly intact, Motor Exam 5/5 strength throughout Psych/Mental Status: Normal Affect, Appropriate Microbiology Past 72 Hours 10/11/19 01:15 Mucosa - Nose Respiratory Panel (PCR) - Final 10/11/19 00:55 Mucosa - Nasopharyngeal Coronavirus COVID-19 PCR - Final Laboratory Results 10/11/19 00:35: WBC 14.1 H, RBC 5.30, Hgb 15.9, Hct 50.2, MCV 94.7 H, MCH 30.0, MCHC 31.7 L, RDW Std Deviation 45.7 H, RDW Coeff of [place]ane 13.1, Plt Count 314, MPV 10.3, Immature Gran % (Auto) 0.500, Neut % (Auto) 73.2 H, Lymph % (Auto) 19.2, [place] % (Auto) 4.8, Eos % (Auto) 1.7, Baso % (Auto) 0.6, Absolute Neuts (auto) 10.3 H, Absolute Lymphs (auto) 2.70, Nucleated RBC % 0 10/11/19 00:35: Fibrinogen 626 H, D-Dimer Quant (PE/DVT) 2.97 H* 10/11/19 00:35: Sodium 143, Potassium 3.5, Chloride 108 H, Carbon Dioxide 28.0, Anion Gap 7, BUN 27 H, Creatinine 1.31 H, Estim Creat Clear Calc 54.95, Est GFR (MDRD) Af Amer 70, Est GFR (MDRD) Non-Af 58 L, BUN/Creatinine Ratio 20.6 H, Glucose 135 H, Calcium 9.6, Total Bilirubin 0.30, AST 36, ALT 62 H, Alkaline Phosphatase 113, Troponin I 0.276 H, Total Protein 7.9, Albumin 3.8, Globulin 4.1, Albumin/Globulin Ratio 0.9 10/11/19 00:35: Lactic Acid 1.5 10/11/19 00:35: B-Natriuretic Peptide 988.6 H 10/11/19 00:35: Procalcitonin < 0.04 10/11/19 00:35: Ferritin 297 10/11/19 00:35: Triglycerides 96, Cholesterol 186, LDL Cholesterol 114, VLDL Cholesterol 19, HDL Cholesterol 53 10/11/19 00:55: COVID-19 (NATHANIEL) Cancelled 10/11/19 03:35: Troponin I 0.274 H 10/11/19 06:15: Troponin I 0.443 H Current Medications Dextrose (D50w Syringe) 0 gm IV X1 PRN; Protocol PRN Reason: Hypoglycemia Enoxaparin Sodium (Lovenox) 40 mg SC DAILY KIM Furosemide (Lasix) 40 mg IV BID@1000,1800 KIM Glucagon () 1 mg IM .X1 PRN PRN Reason: Hypoglycemia Guaifenesin (Mucinex) 1,200 mg PO BID KIM Last Admin: 10/11/19 03:49 Dose: 1,200 mg Documented by: Sodium Chloride () 250 mls @ 15 mls/hr IV .[id number] PRN PRN Reason: Saline Flush Sodium Chloride () 250 mls @ 15 mls/hr IV .[id number] PRN PRN Reason: Additional IVPB Infusion Nitroglycerin/Dextrose () 250 mls @ 6 mls/hr CONT INF .[id number] KIM; Protocol Last Titration: 10/11/19 08:00 Dose: 15 mcg/min, 9 mls/hr Documented by: Potassium Chloride (K-Dur) 40 meq PO [facility]ILY[facility] Sodium Chloride () 10 - 40 ml IV UD PRN PRN Reason: SALINE FLUSH Last Admin: 10/11/19 03:58 Dose: 20 ml Documented by: STROKE Vital Signs/Narrative: Vital Signs Temp Pulse Resp BP BP Pulse Ox 10/11/19 08:00 98.1 F 90 22 H 130/99 H 96 10/11/19 07:43 93 10/11/19 07:00 87 22 H 110/77 110/77 97 10/11/19 06:45 123/80 H 10/11/19 06:30 134/77 H 10/11/19 06:15 121/102 H 10/11/19 06:00 88 15 133/87 H 133/87 H 99 10/11/19 05:45 108/89 H 10/11/19 05:30 112/62 Medical Necessity - Tobacco Use Smoking Status: Current every day smoker Tobacco Use: Pipe Assessment/Plan All Active Problems (Last Reviewed 10/11/19 @ 04:[address] Sly Guadalupe MD) Acute respiratory failure with hypoxia (Acute) Obesity (BMI 30-39.9) (Acute) The patient is a 69 year old M with a significant history of obesity and tobacco abuse/cigar pipe user more than 40 years's admitted to ICU for sudden onset of shortness of breath, cough and diaphoresis and was found severely hypoxic, tachycardic tachypneic, elevated BNP and leukocytosis consistent with acute hypoxic respiratory failure secondary to pulmonary edema and was admitted in ICU. 1. Acute hypoxic illness and rate pulmonary edema/congestive heart failure, exact type, severity and class unknown: Oxygen is being weaned off. On CHF core measures. 2D echo ordered. Currently on Lasix 40 mg IV twice daily with supplemental potassium. Fur Operator and gastroenterology manager consulted and appreciated. Patient was on nitroglycerin drip which is currently being tapered as per protocol. BNP landed cleared. Troponin mildly elevated 0.26, and 0.443. COVID 19 PCR negative. Respiratory panel negative. Blood cultures x2 are pending. Procalcitonin normal. 2. Congestive heart failure, etiology and type unclear: On carvedilol 6.25 mg p.o. twice daily. Rest as mentioned above. 2D echo reviewed. EF 20 to 25%, stage I diastolic dysfunction with severe global hypokinesis of LV. Normal RV s ize systolic function. Normal atrial size. No significant valvular abnormality. Fasting profile shows total cholesterol 186, LDL 114, HDL 53.. Patient will need ACEI/ARB/ARNI as air quality technician deems appropriate, perhaps after kidney function returns normal 3. Elevated transaminitis: ALT 62. Repeat liver test tomorrow a.m. 4. Elevated creatinine and BUN, baseline unknown: Acute kidney injury or CKD unclear with possibility prerenal from CHF/hemodynamic fluid shift 5. Chronic tobacco abuse/pipe smoker: Patient uses 3 cigars daily. Patient agreed for quitting. 6. Morbid obesity: BMI 38.9. Complicates care. Lifestyle changes recommended. DVT prophylaxis: Subcutaneous Lovenox.
[2019-10-11] MEDS: Enoxaparin 40 MG/0.4 ML Syringe SC (10:05)
[2019-10-11] MEDS: Furosemide 40 MG/4 ML Vial IV ×2 (10:06→18:14)
--- NOTE | 2019-10-11 10:08 | CASEMGMT ---
RN CM Assessment Note Presentation: CHF, Acute Resp failure with hypoxia. COVID testing neg. Intro role of CM and purpose of RN CM assessment to patient in room. Demographics, PCP and Pharmacy verified.Pt is awake, alert and able to participate in assessment. Pt states he is very independent, does not use DME. 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 He states is able to be home alone and her therapist is coming today so she will have someone who is checking on her today. PCP: Dr. Morales. Pt would like to consider changing PCP's. List of area physicians given and reviewed with pt. Specialists: none Preferred Pharmacy: [facility] Insurance: MCR AB Prescription Benefit: yes LNOK : , Lizbeth Fine Living Arrangements: Lives in one story home. No care needs. Transportation: Drives DME: none HHC/SNF: none Patient DC goals: Home DC PLAN: anticipate Home on dc. No dc needs identified @ this time. RN CM advised to contact cm for any concerns/needs that may arise. Kimber CARMICHAELN RN ACM
[2019-10-11] MEDS: Carvedilol 6.25 MG Tablet PO ×2 (12:22→21:34)
--- NOTE | 2019-10-11 15:17 | CON.PCM_ITS ---
Problem List (1) Acute respiratory failure with hypoxia Status: Acute Reason for Consult Date of Consultation: 10/11/19 Reason for Consultation: CHF History of Present Illness: The patient is a 69 year old M [coming to the hospital with shortness of breath. Shortness of breath woke him up from sleep. In the emergency room he was hypoxic. His d-dimer was abnormal and a CT chest was negative for PE. Chest x- ray and CT chest were consistent with pulmonary edema. His BNP was elevated. Patient was given IV Lasix and his shortness of breath has improved. His blood pressure was also significantly elevated and he has been started on a nitro drip. He was started on p.o. Coreg and an attempt was made to wean off the nitroglycerin but his blood pressure went up and patient became short of breath. Review of systems: All systems reviewed. All else is negative except that in the HPI.] Past Medical History Allergies/Adverse Reactions: Allergies No Known Allergies Allergy (Verified 10/11/19 00:30) Home Medications: Ambulatory Orders Medication Instructions Recorded NK 10/11/19 Past Medical History (Chronic Problems): Chronic Problems (Last Reviewed 10/11/19 @ 04:[address] Sly Guadalupe MD) Tobacco abuse (Chronic) Surgical History: no surgical history - *Family History Maternal History Items: Diabetes Paternal History Items: - - His father from an aneurysm. Lives: Spouse/ Significant Other Smoking Status: Current every day smoker Tobacco Use: Pipe Alcohol: Occasional Objective: Vital Signs Temp Pulse Resp BP Pulse Ox 98.1 F 96 22 H 141/88 H 96 10/11/19 12:00 10/11/19 15:00 10/11/19 15:00 10/11/19 15:15 10/11/19 15:00 Oxygen Flow Rate (L/min) 1 Oxygen Delivery Method Room Air Weight: 240 lb 8.389 oz Body Mass Index (BMI) 35.5 Intake and Output for Last 24 Hours 10/09/19 10/10/19 10/11/19 23:59 23:59 23:59 Intake Total 1217.85 / 1217.85 Output Total 3775 / 3775 Balance -2557.15 / -2557.15 General: Awake, Alert, Oriented x 3 HEENT: Atraumatic Oral: Moist Mucosa Neck: Supple, No JVD Lungs: Rales - Fish Bases Cardiovascular: Normal S1, Normal S2 Abdomen: Soft Extremities: Trace RLE Edema, Trace LLE Edema Skin: No Rashes Psych/Mental Status: Appropriate 10/11/19 00:35: WBC 14.1 H, RBC 5.30, Hgb 15.9, Hct 50.2, MCV 94.7 H, MCH 30.0, MCHC 31.7 L, Plt Count 314, MPV 10.3, Immature Gran % (Auto) 0.500, Neut % (Auto) 73.2 H, Lymph % (Auto) 19.2, Bureau % (Auto) 4.8, Eos % (Auto) 1.7, Baso % (Auto) 0.6, Absolute Neuts (auto) 10.3 H, Nucleated RBC % 0 10/11/19 00:35: D-Dimer Quant (PE/DVT) 2.97 H* 10/11/19 00:35: Sodium 143, Potassium 3.5, Chloride 108 H, Carbon Dioxide 28.0, Anion Gap 7, BUN 27 H, Creatinine 1.31 H, Est GFR (MDRD) Af Amer 70, Est GFR (MDRD) Non-Af 58 L, BUN/Creatinine Ratio 20.6 H, Glucose 135 H, Calcium 9.6, Total Bilirubin 0.30, Troponin I 0.276 H 10/11/19 00:35: Lactic Acid 1.5 10/11/19 00:35: B-Natriuretic Peptide 988.6 H 10/11/19 00:35: Ferritin 297 10/11/19 00:35: Triglycerides 96, Cholesterol 186, LDL Cholesterol 114, VLDL Cholesterol 19, HDL Cholesterol 53 10/11/19 03:35: Troponin I 0.274 H 10/11/19 06:15: Troponin I 0.443 H Rhythm: EKG: ECHO: Stress Test: Cardiac Cath: PCI: CT Surgery: Holter monitor: EPS: PPM: CXR: Chest CT Scan: Assessment/Plan 1. Respiratory failure: Secondary to acute decompensated systolic congestive heart failure. Agree with continuing Lasix for now. We have added carvedilol. We will also add Entresto and see if we can wean off the nitroglycerin. If the creatinine remains stable then we will proceed with coronary angiography tomorrow to evaluate the etiology of his systolic dysfunction. 2. Hypertension: Uncontrolled. We will add Entresto to the carvedilol that we have initiated.
[2019-10-11] MEDS: SACUBITRIL/VALSARTAN 49-51 MG TABLET 1 EACH PO (21:30)
[2019-10-12] VITALS (33 sets, daily range): BP systolic 93–158; BP diastolic 64–127; PULSE 41–98; RESP 14–24; TEMP 36.1–36.7; O2SAT 92–98
--- NOTE | 2019-10-12 05:55 | EKG12_ITS ---
Test Reason : AM Blood Pressure : / mmHG Vent. Rate : 086 BPM Atrial Rate : 086 BPM P-R Int : 220 ms QRS Dur : 116 ms QT Int : 436 ms P-R-T Axes : 053 -32 079 degrees QTc Int : 521 ms Sinus rhythm with 1st degree A-V block Left axis deviation Septal infarct , age undetermined Confirmed by DEVONTE SIMENTAL, ALEX ([id number]), newspaper editor managing JAKOB CALHOUN ([id number]) on 10/16/2019 3:49:41 PM Referred By: ENRIKE Confirmed By:ALEX WHITNEY MD
[2019-10-12 07:13] LABS: Absolute Neutrophil Count 5.1 X10^3/uL (2.0-7.7); Basophil# 0.06 X10^3/uL; Basophil% 0.8 % (0-1); Eosinophil# 0.11 X10^3/uL; Eosinophils% 1.4 % (0-5); Hematocrit 47.2 % (40-54); Hemoglobin 15.5 g/dL (13.0-16.5); Lymphocyte % 23.5 % (19-41); Mean Corp Hgb Conc 32.8 g/dL (32-36); Mean Corpuscular Volume 91.5 fL (80-94); Mean Platelet Vol. 10.5 fl (6.2-12.0); Monocyte# 0.58 X10^3/uL; Monocyte% 7.6 % (0-10); NRBC Flagged by Analyzer 0 % (0-5); Neutrophil # 5.08 X10^3/uL (2.7-7.7); Neutrophil % 66.2 % (47-70); Platelet Count 215 K/mm3 (150-450); RBC Distribution Width CV 12.9 % (11.6-14.6); RBC Distribution Width SD 43.6 fl (35.1-43.9); Red Blood Count 5.16 M/mm3 (4.6-6.2); White Blood Count 7.7 K/mm3 (4.4-11.0)
[2019-10-12 07:37] LABS: Anion Gap 8 (5-15); BUN 29 mg/dL (7-18); Calcium,Total 9.3 mg/dL (8.5-10.1); Chloride 106 mmol/L (98-107); EST Glomerular Filtration Rate 79 mL/min (>60); Est Glom Filt Rate - Afr Amer 95 mL/min (>60); Estimated Creatinine Clearance 71.99 ml/min; Glucose 118 mg/dL (74-106); Potassium 3.3 mmol/L (3.5-5.1); Sodium Level 141 mmol/L (136-145)
[2019-10-12] MEDS: guaiFENesin 1,200 MG Tablet 1200 MG PO ×2 (08:42→21:32)
[2019-10-12] MEDS: Furosemide 40 MG/4 ML Vial IV ×3 (08:43→17:25)
[2019-10-12] MEDS: 0.9% Saline Lock 10 ML Syringe IV ×3 (08:43→17:25)
[2019-10-12] MEDS: Carvedilol 6.25 MG Tablet PO (08:44)
[2019-10-12] MEDS: SACUBITRIL/VALSARTAN 49-51 MG TABLET 1 EACH PO (08:44)
--- NOTE | 2019-10-12 09:44 | NURSING ---
Report called to MARK Koch in the [employer] lab[employer].
--- NOTE | 2019-10-12 10:15 | PN_ITS ---
Patient Problems: Active and Suspected Problems (Last Reviewed 10/11/19 @ 04:[address] Sly Guadalupe MD) Acute respiratory failure with hypoxia (Acute) Heart failure (Suspected) Obesity (BMI 30-39.9) (Acute) Subjective: The patient was seen and examined at the bedside this morning. Events from the last 24 hours have been reviewed. The patient is currently afebrile, hemodynamically stable and maintaining appropriate oxygen saturations on room air. The patient has been weaned off of his nitro drip completely with stable hemodynamics. He remains on twice daily Lasix. He is currently documented to be overall net -4.2 L for the hospital admission. Creatinine is normal. Potassium is low at 3.3. Objective: The patient's most recent lab work, culture data and imaging studies have all been personally reviewed. Surface echocardiogram revealed normal LV size with evidence of combined systolic and diastolic dysfunction with an ejection fraction of 20 to 25%. Infectious work-up has been unrevealing to date. - Physical Exam Vitals/I&O's: Vital Signs Temp Pulse Resp BP Pulse Ox 98.1 F 77 20 H 141/90 H 94 10/12/19 08:30 10/12/19 08:30 10/12/19 08:30 10/12/19 08:30 10/12/19 08:30 Oxygen Flow Rate (L/min) 1 Oxygen Delivery Method Room Air Weight: 240 lb 8.389 oz Body Mass Index (BMI) 35.5 Intake and Output for Last 24 Hours 10/10/19 10/11/19 10/12/19 23:59 23:59 23:59 Intake Total 1730.45 / 1850.45 180 / 180 Output Total 4375 / 5350 1725 / 1725 Balance -2644.55 / -3499.55 -1545 / -1545 General: Alert, Cooperative, No apparent distress HEENT: Atraumatic, Normocephalic Oral: No Gingival or Mucosal Lesions/ Ulcerations Neck: Supple, No Nodes, Trachea Midline Lungs: No rhonchi, No wheeze, No rales Cardiovascular: Regular rate, Regular Rhythm, Normal S1, Normal S2 Abdomen: Bowel Sounds Present, Soft, Non Tender, Obese Extremities: No clubbing, No cyanosis, No edema Skin: - - No significant change from previous Musculoskeletal: No Muscle Wasting Lymphatic: No Cervical, Supraclavicular, or Inguinal Adenopathy Neurological: Neuro grossly intact Psych/Mental Status: Alert and oriented to time, place, person, mood and affect Labs (Last 48 Hours) 10/11/19 10/11/19 10/11/19 00:35 00:35 00:35 WBC 14.1 H RBC 5.30 Hgb 15.9 Hct 50.2 MCV 94.7 H MCH 30.0 MCHC 31.7 L RDW Std Deviation 45.7 H RDW Coeff of Duane 13.1 Plt Count 314 MPV 10.3 Immature Gran % (Auto) 0.500 Neut % (Auto) 73.2 H Lymph % (Auto) 19.2 [place] % (Auto) 4.8 Eos % (Auto) 1.7 Baso % (Auto) 0.6 Absolute Neuts (auto) 10.3 H Absolute Lymphs (auto) 2.70 Nucleated RBC % 0 Fibrinogen 626 H D-Dimer Quant (PE/DVT) 2.97 H* Sodium 143 Potassium 3.5 Chloride 108 H Carbon Dioxide 28.0 Anion Gap 7 BUN 27 H Creatinine 1.31 H Estim Creat Clear Calc 54.95 Est GFR (MDRD) Af Amer 70 Est GFR (MDRD) Non-Af 58 L BUN/Creatinine Ratio 20.6 H Glucose 135 H Lactic Acid Calcium 9.6 Ferritin Total Bilirubin 0.30 AST 36 ALT 62 H Alkaline Phosphatase 113 Troponin I 0.276 H B-Natriuretic Peptide Total Protein 7.9 Albumin 3.8 Globulin 4.1 Albumin/Globulin Ratio 0.9 Triglycerides Cholesterol LDL Cholesterol VLDL Cholesterol HDL Cholesterol Procalcitonin COVID-19 (NATHANIEL) 10/11/19 10/11/19 10/11/19 00:35 00:35 00:35 WBC RBC Hgb Hct MCV MCH MCHC RDW Std Deviation RDW Coeff of Duane Plt Count MPV Immature Gran % (Auto) Neut % (Auto) Lymph % (Auto) [place] % (Auto) Eos % (Auto) Baso % (Auto) Absolute Neuts (auto) Absolute Lymphs (auto) Nucleated RBC % Fibrinogen D-Dimer Quant (PE/DVT) Sodium Potassium Chloride Carbon Dioxide Anion Gap BUN Creatinine Estim Creat Clear Calc Est GFR (MDRD) Af Amer Est GFR (MDRD) Non-Af BUN/Creatinine Ratio Glucose Lactic Acid 1.5 Calcium Ferritin Total Bilirubin AST ALT Alkaline Phosphatase Troponin I B-Natriuretic Peptide 988.6 H Total Protein Albumin Globulin Albumin/Globulin Ratio Triglycerides Cholesterol LDL Cholesterol VLDL Cholesterol HDL Cholesterol Procalcitonin < 0.04 COVID-19 (NATHANIEL) 10/11/19 10/11/19 10/11/19 00:35 00:35 00:55 WBC RBC Hgb Hct MCV MCH MCHC RDW Std Deviation RDW Coeff of Duane Plt Count MPV Immature Gran % (Auto) Neut % (Auto) Lymph % (Auto) [place] % (Auto) Eos % (Auto) Baso % (Auto) Absolute Neuts (auto) Absolute Lymphs (auto) Nucleated RBC % Fibrinogen D-Dimer Quant (PE/DVT) Sodium Potassium Chloride Carbon Dioxide Anion Gap BUN Creatinine Estim Creat Clear Calc Est GFR (MDRD) Af Amer Est GFR (MDRD) Non-Af BUN/Creatinine Ratio Glucose Lactic Acid Calcium Ferritin 297 Total Bilirubin AST ALT Alkaline Phosphatase Troponin I B-Natriuretic Peptide Total Protein Albumin Globulin Albumin/Globulin Ratio Triglycerides 96 Cholesterol 186 LDL Cholesterol 114 VLDL Cholesterol 19 HDL Cholesterol 53 Procalcitonin COVID-19 (NATHANIEL) Cancelled 10/11/19 10/11/19 10/12/19 03:35 06:15 06:21 WBC 7.7 RBC 5.16 Hgb 15.5 Hct 47.2 MCV 91.5 MCH 30.0 MCHC 32.8 RDW Std Deviation 43.6 RDW Coeff of [place]ane 12.9 Plt Count 215 MPV 10.5 Immature Gran % (Auto) 0.500 Neut % (Auto) 66.2 Lymph % (Auto) 23.5 [place] % (Auto) 7.6 Eos % (Auto) 1.4 Baso % (Auto) 0.8 Absolute Neuts (auto) 5.1 Absolute Lymphs (auto) 1.80 Nucleated RBC % 0 Fibrinogen D-Dimer Quant (PE/DVT) Sodium Potassium Chloride Carbon Dioxide Anion Gap BUN Creatinine Estim Creat Clear Calc Est GFR (MDRD) Af Amer Est GFR (MDRD) Non-Af BUN/Creatinine Ratio Glucose Lactic Acid Calcium Ferritin Total Bilirubin AST ALT Alkaline Phosphatase Troponin I 0.274 H 0.443 H B-Natriuretic Peptide Total Protein Albumin Globulin Albumin/Globulin Ratio Triglycerides Cholesterol LDL Cholesterol VLDL Cholesterol HDL Cholesterol Procalcitonin COVID-19 (NATHANIEL) 10/12/19 06:21 WBC RBC Hgb Hct MCV MCH MCHC RDW Std Deviation RDW Coeff of Duane Plt Count MPV Immature Gran % (Auto) Neut % (Auto) Lymph % (Auto) [place] % (Auto) Eos % (Auto) Baso % (Auto) Absolute Neuts (auto) Absolute Lymphs (auto) Nucleated RBC % Fibrinogen D-Dimer Quant (PE/DVT) Sodium 141 Potassium 3.3 L Chloride 106 Carbon Dioxide 27.0 Anion Gap 8 BUN 29 H Creatinine 1.00 Estim Creat Clear Calc 71.99 Est GFR (MDRD) Af Amer 95 Est GFR (MDRD) Non-Af 79 BUN/Creatinine Ratio 29.0 H Glucose 118 H Lactic Acid Calcium 9.3 Ferritin Total Bilirubin AST ALT Alkaline Phosphatase Troponin I B-Natriuretic Peptide Total Protein Albumin Globulin Albumin/Globulin Ratio Triglycerides Cholesterol LDL Cholesterol VLDL Cholesterol HDL Cholesterol Procalcitonin COVID-19 (NATHANIEL) Microbiology 10/11/19 01:15 Mucosa - Nose Respiratory Panel (PCR) - Final 10/11/19 00:55 Mucosa - Nasopharyngeal Coronavirus COVID-19 PCR - Final Clinical Impression(s) from Imaging Studies Chest X-Ray 10/11/19 01:25 IMPRESSION: There is bilateral perihilar pulmonary edema versus infiltrate worse on the RIGHT. There is no demonstrated pleural abnormality. Heart is enlarged. Electronically Signed: Ced Ramsey MD at 1:52 EDT , Service support , Chest CTA 10/11/19 01:37 IMPRESSION: There is no demonstrated pulmonary embolism. There is diffuse thickening of the pulmonary artery branches and the bronchi which is nonspecific but could indicate bronchiolitis/vasculitis. Normal thoracic aorta and visualized great vessels. There is no demonstrated aortic dissection. The heart is borderline enlarged. There is a tiny pericardial effusion. The lungs are expanded. There is bilateral pulmonary edema suggesting heart failure or fluid overload. There is small bilateral pleural effusions. There are NO pneumothoraces. There is opacity at the lung bases bilaterally suggesting atelectasis or less likely infiltrate. There is scattered cystic lung changes. Electronically Signed: Ced Ramsey MD at 2:41 EDT , Service support , Current Medications Carvedilol (Coreg) 6.25 mg PO BID [facility] Last Admin: 10/12/19 08:44 Dose: 6.25 mg Documented by: Dextrose (D50w Syringe) 0 gm IV X1 PRN; Protocol PRN Reason: Hypoglycemia Enoxaparin Sodium (Lovenox) 40 mg SC DAILY [facility] Last Admin: 10/12/19 08:43 Dose: Not Given Documented by: Furosemide (Lasix) 40 mg IV BID@1000,1800 [facility] Last Admin: 10/12/19 08:43 Dose: 40 mg Documented by: Glucagon () 1 mg IM .X1 PRN PRN Reason: Hypoglycemia Guaifenesin (Mucinex) 1,200 mg PO BID [facility] Last Admin: 10/12/19 08:42 Dose: 1,200 mg Documented by: Sodium Chloride () 250 mls @ 15 mls/hr IV .[id number] PRN PRN Reason: Saline Flush Sodium Chloride () 250 mls @ 15 mls/hr IV .[id number] PRN PRN Reason: Additional IVPB Infusion Sodium Chloride () 1,000 mls @ 0 mls/hr IV .Q0M [facility] Potassium Chloride (K-Dur) 40 meq PO DAILYCM [facility] Last Admin: 10/12/19 08:49 Dose: 40 meq Documented by: Sacubitril/Valsartan (Entresto 49 Mg-51 Mg Tablet) 1 each PO BID [facility] Last Admin: 10/12/19 08:44 Dose: 1 each Documented by: Sodium Chloride () 10 - 40 ml IV UD PRN PRN Reason: SALINE FLUSH Last Admin: 10/12/19 08:43 Dose: 10 ml Documented by: Medical Necessity - Tobacco Use Smoking Status: Current every day smoker Tobacco Use: Pipe Assessment/Plan All Active Problems (Last Reviewed 10/11/19 @ 04:[address] Sly Guadalupe MD) Acute respiratory failure with hypoxia (Acute) Obesity (BMI 30-39.9) (Acute) RECOMMENDATIONS: 1. Plan for cardiac catheterization today. 2. Continue p.o. antihypertensive regimen and diuretic therapy per cardiology. 3. Encourage incentive spirometer use and mobilize patient as tolerated. 4. Wean supplemental oxygen to maintain saturations at or above 90%. 5. As the patient has no further ICU or pulmonary needs, will sign off. Please call with any additional questions. IMPRESSIONS: 1. Acute hypoxemic respiratory failure Likely secondary to decompensated heart failure in the setting of poorly controlled hypertension. The patient has responded appropriately to IV diuretic therapy, which will be continued. Echocardiogram did reveal a severely depressed ejection fraction. Cardiology is currently following with tentative plans for cardiac catheterization today. The patient will be weaned from supplemental oxygen to maintain saturations at or above 90%. Encourage incentive spirometer use and mobilize patient as tolerated. 2. Hypertension/troponin elevation The patient presented to the hospital with systolic pressures in excess of 200 mmHg. He is not currently on any antihypertensives at his baseline. Will defer antihypertensive regimen initiation to cardiology. 3. History of tobacco dependency/obesity Complicates care, management, recovery and prognosis. The patient is a daily pipe smoker. If agreeable, the patient can follow-up after discharge in the pulmonary medicine clinic so that baseline PFTs can be obtained. This note was generated with Pix[employer] dictation software. It may contain incorrect words, spelling, and punctuation that were not noted in checking the note before signing. Inpatient E&M: 18358 Subs Hosp L2
[2019-10-12 10:44] LABS: Magnesium 2.2 mg/dL (1.6-2.6)
--- NOTE | 2019-10-12 11:25 | EKG12_ITS ---
Test Reason : POST PCI Blood Pressure : / mmHG Vent. Rate : 094 BPM Atrial Rate : 094 BPM P-R Int : 208 ms QRS Dur : 122 ms QT Int : 548 ms P-R-T Axes : 027 -33 075 degrees QTc Int : 685 ms Normal sinus rhythm Left axis deviation Left ventricular hypertrophy with QRS widening Nonspecific T wave abnormality Abnormal ECG Confirmed by JENNA SIMENTAL, WES ([id number]), newspaper editor managing JAKOB CALHOUN ([id number]) on 10/18/2019 3:08:58 PM Referred By: BLAKE Confirmed By:WES WEST MD
--- NOTE | 2019-10-12 11:34 | PN.CARD_ITS ---
Subjectve: Patient has noticed improvement. His creatinine is also better today. He underwent coronary angiography which revealed 80% stenosis in the mid LAD that was treated with drug-eluting stent. He has mild to moderate disease in the other vessels. His LVEDP is 13 mmHg. Objective: Vital Signs Temp Pulse Resp BP Pulse Ox 97.5 F L 78 18 136/81 H 95 10/12/19 11:25 10/12/19 11:25 10/12/19 11:25 10/12/19 11:25 10/12/19 11:25 Oxygen Flow Rate (L/min) 1 Oxygen Delivery Method Room Air Weight: 240 lb 8.389 oz Body Mass Index (BMI) 35.5 Intake and Output for Last 24 Hours 10/10/19 10/11/19 10/12/19 23:59 23:59 23:59 Intake Total 1730.45 / 1850.45 180 / 180 Output Total 4375 / 5350 1725 / 1725 Balance -2644.55 / -3499.55 -1545 / -1545 General: Awake, Alert, Oriented x 3 HEENT: Atraumatic Oral: Moist Mucosa Neck: Supple, No JVD Cardiovascular: Regular Rhythm Abdomen: Soft Extremities: No edema Skin: No Rashes Psych/Mental Status: Appropriate 10/12/19 06:21: WBC 7.7, RBC 5.16, Hgb 15.5, Hct 47.2, MCV 91.5, MCH 30.0, MCHC 32.8, Plt Count 215, MPV 10.5, Immature Gran % (Auto) 0.500, Neut % (Auto) 66.2, Lymph % (Auto) 23.5, [place] % (Auto) 7.6, Eos % (Auto) 1.4, Baso % (Auto) 0.8, Absolute Neuts (auto) 5.1, Nucleated RBC % 0 10/12/19 06:21: Sodium 141, Potassium 3.3 L, Chloride 106, Carbon Dioxide 27.0, Anion Gap 8, BUN 29 H, Creatinine 1.00, Est GFR (MDRD) Af Amer 95, Est GFR (MDRD) Non-Af 79, BUN/Creatinine Ratio 29.0 H, Glucose 118 H, Calcium 9.3 10/12/19 06:21: Magnesium 2.2 Rhythm: EKG: ECHO: Stress Test: Cardiac Cath: PCI: CT Surgery: Holter monitor: EPS: PPM: CXR: Chest CT Scan: Medical Necessity - Tobacco Use Smoking Status: Current every day smoker Tobacco Use: Pipe Assessment/Plan 1. Respiratory failure: Secondary to acute decompensated systolic congestive heart failure. Patient has improved with IV Lasix, Coreg and Entresto. We should be able to switch to p.o. Lasix tomorrow. He underwent coronary angiography which revealed 80% stenosis in the LAD that was treated with PCI. 2. Hypertension: Blood pressure is better controlled under current regimen. 3. Coronary artery disease: Patient should be on dual antiplatelet therapy for at least 1 year. We have added a statin to his regimen as well. 4. LV dysfunction: Patient has severe LV dysfunction. He will need an EF as sessment in 3 months and if his EF is still less than 35% despite maximal tolerated medical therapy then he would need an AICD.
[2019-10-12] MEDS: 0.9% Normal Saline 1,000 ML 50 ML IV (12:02)
--- NOTE | 2019-10-12 12:03 | CL.I_ITS ---
Patient Name: NEWTON MOYER Study Date: 10/12/2019 Performing: Sofia Bellamy MD Ht: 70 inches 178 cm : 1950 Wt: 240.6 lbs 109 kg Age: 69 Gender: male BSA: 2.26 PROCEDURE(S) PERFORMED AG83-RGC/COR/LV NW80-AOH W OR WO PTCA, SINGLE CORONARY ARTERY CLINICAL PROFILE AND CO-MORBIDITIES Indications: Cardiomyopathy Heart Failure: NYHA Class: 3, Newly Diagnosed: Yes, Heart Failure Type: Systolic Stress/Imaging Stress/Image Study Performed: No CAD Presentations: Other: chf CONCLUSIONS CAD as described. Severe LV dysfunction. No significant or MR. Successful PCI of mid LAD with LUCIA RECOMMENDATIONS Follow up with primary validation technician KAREN Powell for at least 12 months DESCRIPTION OF PROCEDURE The patient arrived to the procedure lab. The risks and benefits of the procedure as well as a full d escription of our services here and lack of surgical backup were fully explained to the patient and/o r their significant other prior to the catheterization. The Timeout was completed, verifying the shaka ect patient and procedure. The patient's procedural site was prepped and draped in the usual fashion. Local anesthetic was given subcutaneously to right radial region with Lidocaine 2%. Using a modified Seldinger technique, arterial access was obtained via the right radial artery, a 6Fr sheath was inse rted.. Left Coronary Artery selective angiography was performed in multiple views using a 5 Fr. JL4 catheter. Right Coronary Artery selective angiography was then performed in multiple views using a 5 Fr. JR 4 catheter. Left Ventriculography was performed in [place] projection using a 5 Fr. JR 4. LV to AO pullback pressures were then recordedThe images were reviewed and options discussed. A decision was then made to proceed with an Intervention, IVUS or other adjunct procedure. XB 3.5 Guide catheter was inserted and engaged into the LCA. BMW Guide wire was advanced to the L AD. 2.5 x 12 Emerge Balloon catheter was advanced across lesion in the LAD, mid. PTCA balloon inflate d at 6 atms for 10 secs. PTCA balloon inflated at 8 atms for 15 secs. 2.75x16 [address] Eluting st ent was inserted. Drug Eluting stent was advanced across the lesion in the LAD, mid. The arterial s roopa was pulled and a TR Band was applied for hemostasis-11 cc air CORONARY ANGIOGRAPHY DOMINANCE: Right Dominant LEFT HEART ASSESSMENT Left Ventricular Ejection Fraction: by LV Gram 20 % Global Hypokinesis - Severe LEFT MAIN: Angiographically normal LEFT ANTERIOR DESCENDING ARTERY: MID LAD: 80 % Stenosis CIRCUMFLEX ARTERY: Mild difuse disease. There is an OM1 vessel which has severe diffuse disease in th e distal portion. At this location the vessel is about 1mm in diameter. There is a 30% stenosis in th e proximal part of this vessel RIGHT CORONARY ARTERY: DISTAL RCA: There are two areas with 30-40% stenosis VALVE FINDINGS: No Aortic Valve Stenosis No Mitral Insufficency INTERVENTION INFORMATION LESION SITE: LAD (Mid) Lesion Complexity: High/C, lesion at bifurcation: No, thrombus present: No, lesion length: 15 mm, cul prit lesion: Yes, Previously treated lesion: No Pre Stenosis: 80 % Pre intervention JESENIA flow: 3 PROCEDURE: Drug Eluting Stent with pre dilatation. Post Stenosis: 0 % Post intervention JESENIA flow: 3 Lesion Devices: [employer] EMERGE MR 2.50x12 BALLOON [place] .014 BMW [place] Straight 190cm Cardinal 6 Fr XB3.5 100cm Guide Catheter [employer] Synergy MR LUCIA 2.75x16 COMPLICATIONS No Complications PROCEDURE MEDICATIONS Versed 1 mg IV Fentanyl 50 mcg IV Oxygen: 2 L/min via nasal cannula Aspirin (325mg) 1 Tabs PO 10/12/2019 10:55:38 Brilinta 180 mg PO @ 10/12/2019 10:55:55 Heparin given IA 10/12/2019 10:15:32 Heparin 5000 unit(s) IV 10/12/2019 10:34:07 Verapamil 1.25mg, Ntg 100mcgs, 3000 units of Heparin given IA 10/12/2019 10:15:32 SUMMARY OF HEMODYNAMIC DATA Time AIR REST ECG 09:52:42 AO 85/64 (72) SA 10:19:42 AO 99/82 (91) 10:21:15 LV 119/3, 13 10:30:18 LV 112/3, 11 10:30:24 LV 112/1, 10 10:31:10 LVp 107/0, 9 10:31:13 AOp 98/66 (78) 10:31:18 Signed By Sofia Bellamy MD On 10/12/2019 12:03:01 Sofia Bellamy MD
[2019-10-12 12:07] LABS: Hematocrit 47.4 % (40-54); Hemoglobin 15.5 g/dL (13.0-16.5); Mean Corp Hgb Conc 32.7 g/dL (32-36); Mean Corpuscular Hgb 29.6 pg (27.0-32.0); Mean Corpuscular Volume 90.5 fL (80-94); Mean Platelet Vol. 10.3 fl (6.2-12.0); Platelet Count 163 K/mm3 (150-450); RBC Distribution Width CV 12.9 % (11.6-14.6); RBC Distribution Width SD 42.6 fl (35.1-43.9); Red Blood Count 5.24 M/mm3 (4.6-6.2); White Blood Count 9.5 K/mm3 (4.4-11.0)
--- NOTE | 2019-10-12 12:30 | NURSING ---
Monitor alarmed bradycardia 41 bpm, entered patient room to find patient sitting up in bed and breathing heavily. Patient states he all the sudden felt a wave of shortness of breath. Dr Bellamy nearby and pulled into room by this RN. Doctor listened to lungs. Order to stop IVF, 40 mg lasix IV x1. Will monitor.
--- NOTE | 2019-10-12 13:36 | EKG12_ITS ---
Test Reason : POST PCI Blood Pressure : / mmHG Vent. Rate : 075 BPM Atrial Rate : 075 BPM P-R Int : 212 ms QRS Dur : 118 ms QT Int : 456 ms P-R-T Axes : 035 -31 091 degrees QTc Int : 509 ms Sinus rhythm with 1st degree A-V block Left axis deviation Left ventricular hypertrophy with QRS widening Nonspecific T wave abnormality Prolonged QT Abnormal ECG Confirmed by JENNA SIMENTAL, WES ([id number]), telegraph editor JAKOB CALHOUN ([id number] on 10/18/2019 3:13:08 PM Referred By: BLAKE Confirmed By:WES WEST MD
--- NOTE | 2019-10-12 13:41 | PN_ITS ---
Patient Problems: Active and Suspected Problems (Last Reviewed 10/11/19 @ 04:[address] Sly Guadalupe MD) Acute respiratory failure with hypoxia (Acute) Heart failure (Suspected) Obesity (BMI 30-39.9) (Acute) Subjective: Patient had PCI today. Respiratory status much better. Blood pressure is controlled. On 2 L of oxygen. Vitals/I&O's: Vital Signs Temp Pulse Resp BP Pulse Ox 97.5 F L 93 16 122/68 H 96 10/12/19 11:25 10/12/19 13:10 10/12/19 13:10 10/12/19 13:10 10/12/19 13:10 Oxygen Flow Rate (L/min) 2 Oxygen Delivery Method Nasal Cannula Weight: 240 lb 8.389 oz Body Mass Index (BMI) 35.5 Intake and Output for Last 24 Hours 10/10/19 10/11/19 10/12/19 23:59 23:59 23:59 Intake Total 1730.45 / 1850.45 211.67 / 211.67 Output Total 4375 / 5350 2425 / 2425 Balance -2644.55 / -3499.55 -2213.33 / -2213.33 General: Alert, Oriented x3, Cooperative HEENT: Atraumatic, PERRLA, EOMI, Normocephalic Neck: Supple, No JVD, Negative Carotid Bruits Lungs: Diminished - Air entry diminished in bilateral lung bases, Rales - Occasional rales in bilateral lower lungs. Cardiovascular: Regular rate, Regular Rhythm, Normal S1, Normal S2, No murmurs Abdomen: Bowel Sounds Present, Soft, Non Tender, Non-Distended Extremities: Capillary Refill Less than 3 Seconds, Edema - Edema is improved Skin: No rashes, No breakdown Musculoskeletal: No Tenderness to Palpation of Joints or Extremities, Arthritic Changes Neurological: Cranial nerves II-XII grossly intact, Deep Tendon Reflexes 2+/4 and Symmetrical, Neuro grossly intact Psych/Mental Status: Normal Affect, Appropriate Microbiology Past 72 Hours 10/11/19 01:15 Mucosa - Nose Respiratory Panel (PCR) - Final 10/11/19 00:55 Mucosa - Nasopharyngeal Coronavirus COVID-19 PCR - Final Laboratory Results 10/12/19 06:21: WBC 7.7, RBC 5.16, Hgb 15.5, Hct 47.2, MCV 91.5, MCH 30.0, MCHC 32.8, RDW Std Deviation 43.6, RDW Coeff of [place] 12.9, Plt Count 215, MPV 10.5, Immature Gran % (Auto) 0.500, Neut % (Auto) 66.2, Lymph % (Auto) 23.5, [place] % (Auto) 7.6, Eos % (Auto) 1.4, Baso % (Auto) 0.8, Absolute Neuts (auto) 5.1, Absolute Lymphs (auto) 1.80, Nucleated RBC % 0 10/12/19 06:21: Sodium 141, Potassium 3.3 L, Chloride 106, Carbon Dioxide 27.0, Anion Gap 8, BUN 29 H, Creatinine 1.00, Estim Creat Clear Calc 71.99, Est GFR (MDRD) Af Amer 95, Est GFR (MDRD) Non-Af 79, BUN/Creatinine Ratio 29.0 H, Glucose 118 H, Calcium 9.3 10/12/19 06:21: Magnesium 2.2 10/12/19 11:59: WBC 9.5, RBC 5.24, Hgb 15.5, Hct 47.4, MCV 90.5, MCH 29.6, MCHC 32.7, RDW Std Deviation 42.6, RDW Coeff of [place] 12.9, Plt Count 163, MPV 10.3 Current Medications Aspirin (Ecotrin) 81 mg PO DAILY@0800 [facility] Atorvastatin Calcium (Lipitor) 40 mg PO QHS [facility], [facility]1983 Atropine Sulfate () 0.5 mg IV UD PRN PRN Reason: HR <50 bpm Carvedilol (Coreg) 6.25 mg PO BID [facility]1983 Last Admin: 10/12/19 08:44 Dose: 6.25 mg Documented by: Dextrose (D50w Syringe) 0 gm IV X1 PRN; Protocol PRN Reason: Hypoglycemia Enoxaparin Sodium (Lovenox) 40 mg SC DAILY [facility]1983 Last Admin: 10/12/19 08:43 Dose: Not Given Documented by: Furosemide (Lasix) 40 mg IV BID@1000,1800 [facility] Last Admin: 10/12/19 08:43 Dose: 40 mg Documented by: Glucagon () 1 mg IM .X1 PRN PRN Reason: Hypoglycemia Guaifenesin (Mucinex) 1,200 mg PO BID [facility]1983 Last Admin: 10/12/19 08:42 Dose: 1,200 mg Documented by: Heparin Sodium (Beef Lung) (Heparin 500 Unit/5 Ml (100/Ml)) 500 unit IV UD PRN PRN Reason: HEPARIN FLUSH Sodium Chloride () 250 mls @ 15 mls/hr IV .H57H19L PRN PRN Reason: Saline Flush Sodium Chloride () 250 mls @ 15 mls/hr IV .[id number] PRN PRN Reason: Additional IVPB Infusion Sodium Chloride () 1,000 mls @ 0 mls/hr IV .Q0M KIM Labetalol HCl (Trandate) 5 mg IV X1 PRN PRN Reason: SBP > 160 when pulling sheath Stop: 10/14/19 11:28 Potassium Chloride (K-Dur) 40 meq PO BIDCM [facility] Sacubitril/Valsartan (Entresto 49 Mg-51 Mg Tablet) 1 each PO BID KIM Last Admin: 10/12/19 08:44 Dose: 1 each Documented by: Sodium Chloride () 10 - 40 ml IV UD PRN PRN Reason: SALINE FLUSH Last Admin: 10/12/19 12:43 Dose: 10 ml Documented by: Sodium Chloride () 500 ml IV BOLUS PRN PRN Reason: VASO-VAGAL PROTOCOL Ticagrelor (Brilinta) 90 mg PO BID [facility]1983 STROKE Vital Signs/Narrative: Vital Signs Temp Pulse Resp BP BP Pulse Ox 10/12/19 13:10 93 16 122/68 H 96 10/12/19 12:56 67 24 H 153/112 H 98 10/12/19 12:55 24 H 97 10/12/19 12:40 81 22 H 154/95 H 97 10/12/19 12:25 83 20 H 158/127 H 97 10/12/19 12:18 41 L 10/12/19 12:10 81 18 136/91 H 93 10/12/19 11:55 69 18 112/71 92 10/12/19 11:40 66 18 121/67 H 95 10/12/19 11:25 97.5 F L 78 18 136/81 H 95 10/12/19 11:07 83 Medical Necessity - Tobacco Use Smoking Status: Current every day smoker Tobacco Use: Pipe Assessment/Plan All Active Problems (Last Reviewed 10/11/19 @ 04:[address] Sly Guadalupe MD) Acute respiratory failure with hypoxia (Acute) Obesity (BMI 30-39.9) (Acute) The patient is a 69 year old M with a significant history of obesity and tobacco abuse/cigar pipe user more than 40 years's admitted to ICU for sudden onset of shortness of breath, cough and diaphoresis and was found severely hypoxic, tachycardic tachypneic, elevated BNP and leukocytosis consistent with acute hypoxic respiratory failure secondary to pulmonary edema and was admitted in ICU. 1. Acute hypoxic illness and rate pulmonary edema/congestive heart failure, exact type, severity and class unknown: Oxygen is being weaned off. On CHF core measures. 2D echo ordered. Currently on Lasix 40 mg IV twice daily with supplemental potassium. Senior Telecommunications Consultant and children's zoo caretaker consulted and appreciated. Patient was on nitroglycerin drip which is currently being tapered as per protocol. BNP landed cleared. Troponin mildly elevated 0.26, and 0.443. COVID 19 PCR negative. Respiratory panel negative. Blood cultures x2 are pending. Procalcitonin normal. 2. Congestive heart failure, etiology and type unclear: On carvedilol 6.25 mg p.o. twice daily. Rest as mentioned above. 2D echo reviewed. EF 20 to 25%, stage I diastolic dysfunction with severe global hypokinesis of LV. Normal RV size systolic function. Normal atrial size. No significant valvular abnormality. Fasting profile shows total cholesterol 186, LDL 114, HDL 5/22: Patient had cardiac cath. Was found EF 20% with severe LV dysfunction. Mid LAD 80% for which PCI with LUCIA was done. Severe diffuse disease in the distal portion of OM1. On aspirin, Plavix, Entresto 49-51 mg twice daily, atorvastatin and Lasix. Cardiac rehab. Mild hypokalemia, potassium replaced. Magnesium level normal. 3. Elevated transaminitis: ALT 62. Repeat liver test tomorrow a.m. 4. Elevated creatinine and BUN, baseline unknown: Acute kidney injury or CKD unclear with possibility prerenal from CHF/hemodynamic fluid shift 5. Chronic tobacco abuse/pipe smoker: Patient uses 3 cigars daily. Patient agreed for quitting. 6. Morbid obesity: BMI 38.9. Complicates care. Lifestyle changes recommended. DVT prophylaxis: Subcutaneous Lovenox. Inpatient E&M: [id number] [facility] Hosp L2
--- NOTE | 2019-10-12 14:16 | CRPHASE1_ITS ---
Patient Communication PHII Cardiac Rehab Discussed with Patient:: Yes Guide to Cardiac Rehab Given to Patient:: Yes Cardiac Rehab Facility Choice List Given to Patient:: Yes - [facility] Choice Program [facility] CR PHII:: Communication Given to CR Retail Bakery Manager:: Suzi Bellamy Refer Phase II Cardiac Rehab:: Yes Sessions:: 36 sessions - 3 days/wk, 12 weeks Risk Factors/Lifestyle Smoking Status: Current every day smoker Hx Hypertension: Yes Hx Dyslipidemia: Yes Hx Obesity: Yes ETOH: Yes Laboratory Values: Cardiac Rehab Phase I Labs Triglycerides 96 mg/dL (-199) 10/11/19 00:35 Cholesterol 186 mg/dL (200) 10/11/19 00:35 LDL Cholesterol 114 mg/dL (0-130) 10/11/19 00:35 HDL Cholesterol 53 mg/dL (40-) 10/11/19 00:35 Cardiac Rehabilitation Info Cardiac Rehabilitation Program Information: Cardiac Rehabilitation is important for patients like you who are recovering from a heart problem. Cardiac rehabilitation programs are recognized as integral to the continued care of the patient with coronary heart disease. The cardiac rehabilitation program is designed to optimize a patient's physical, psychological, and social functioning. Health health care marketing manager work in cardiac rehabilitation programs and assist you with getting the treatments you need to get stronger and healthier - like exercise, healthy eating habits, and medications. Cardiac rehabilitation has been show to help people with heart problems live longer and have better life enjoyment than people who do not go to cardiac rehabilitation. Please contact the Cardiac Rehabilitation Program at [facility] at in two weeks if you have not heard from them.
--- NOTE | 2019-10-12 14:18 | CRPH1.INSTRU ---
General Education CAD and cardiac anatomy and function:: Patient communicates acknowledgment Explanation of diagnoses and procedures:: Patient communicates acknowledgment Sign/Symptoms of NC:: Patient communicates acknowledgment Antiplatelet therapy: Patient communicates acknowledgment Proper use of NTG-SL: Patient communicates acknowledgment Emergency procedures and activation of EMS: Patient communicates acknowledgment Compliance of all prescribed medications: Patient communicates acknowledgment Smoking Patient Nicotine/Smoking Risk Factors Are:: Pipes Recommendations Include:: Smoking cessation strategies/Smoking packet, Participation in a smoking cessation program Nicotine/Smoking Response Code:: Patient communicates acknowledgment Dyslipidemia Patient Dyslipidemia Risk Factors Are:: LDL Recommendations Include:: Lipid profile provided Dyslipidemia Response Code:: Patient communicates acknowledgment Overweight/Obesity Patient Overweight/Obesity Risk Factors Are:: Obesity - > or = 30 Recommendations Include:: Weight loss of 5-10% Overweight/Obesity:: Patient communicates acknowledgment Hypertension Recommendations Include:: Maintain BP <130/85, DASH dietary guidelines Hypertension:: Patient communicates acknowledgment Heart Disease Patient Heart Disease Risk Factors Are:: Previous cardiac event Heart Disease Response Code:: Patient communicates acknowledgment Sedentary Patient Sedentary Risk Factors Are:: Lack of regular exercise Recommendations Include:: Aerobic exercise 5-7 times/week for 20-30 minutes continuously, Benefits of regular exercise, Discussed home walking program, Monitored Outpatient Cardiac Rehab Sedentary Response Code:: Patient communicates acknowledgment Stress Patient Stress Risk Factors Are:: Patient denies stress as a risk factor
[2019-10-12] MEDS: Clopidogrel Bisulfate 300 MG Tablet 600 MG PO (21:32)
[2019-10-12] MEDS: Atorvastatin Calcium 40 MG Tablet PO (21:32)
[2019-10-13 02:57] VITALS: PULSE 89
[2019-10-13 03:14] VITALS: BP 110/74; PULSE 66; RESP 18; TEMP 37.2; O2SAT 96
--- NOTE | 2019-10-13 05:25 | NURSING ---
PATIENT WAS GETTING EKG DONE THIS AM. RESPIRATORY THERAPY WITNESSED PATIENT HAVING SLEEP APNEA WHILE ON EKG MACHINE-GOT AN EKG, THEN ONE WHILE PATIENT WAS NOT HAVING SLEEP APNEA. BOTH PLACED IN CHART.
--- NOTE | 2019-10-13 05:26 | EKG12_ITS ---
Test Reason : AM EKG Blood Pressure : / mmHG Vent. Rate : 090 BPM Atrial Rate : 090 BPM P-R Int : 208 ms QRS Dur : 122 ms QT Int : 436 ms P-R-T Axes : 040 -32 106 degrees QTc Int : 533 ms Normal sinus rhythm Left axis deviation Left ventricular hypertrophy with QRS widening T wave abnormality, consider lateral ischemia Abnormal ECG Confirmed by JENNA SIMENTAL, WES ([id number]), graphic editor JAKOB CALHOUN ([id number]) on 10/18/2019 2:54:13 PM Referred By: DR CALVERT Confirmed By:WES WEST MD
[2019-10-13 06:12] LABS: Hematocrit 49.7 % (40-54); Hemoglobin 16.5 g/dL (13.0-16.5); Mean Corp Hgb Conc 33.2 g/dL (32-36); Mean Corpuscular Hgb 30.2 pg (27.0-32.0); Mean Corpuscular Volume 90.9 fL (80-94); Mean Platelet Vol. 10.3 fl (6.2-12.0); Platelet Count 220 K/mm3 (150-450); Red Blood Count 5.47 M/mm3 (4.6-6.2); White Blood Count 9.4 K/mm3 (4.4-11.0)
[2019-10-13 06:26] LABS: ALB/GLOB Ratio 0.8 RATIO (0.9-2.4); AST(SGOT) 13 U/L (15-37); Alanine Aminotransfer ALT/SGPT 37 U/L (16-61); Albumin, Serum 3.2 g/dL (3.2-5.0); Alkaline Phosphatase 83 U/L (45-117); Anion Gap 8 (5-15); BUN 40 mg/dL (7-18); BUN/Creat Ratio 33.6 RATIO (10-20); Calcium,Total 9.5 mg/dL (8.5-10.1); Chloride 105 mmol/L (98-107); Creatinine, Serum 1.19 mg/dL (0.70-1.30); EST Glomerular Filtration Rate 64 mL/min (>60); Est Glom Filt Rate - Afr Amer 78 mL/min (>60); Estimated Creatinine Clearance 60.49 ml/min; Globulin 3.9 g/dL (2.2-4.2); Glucose 126 mg/dL (74-106); Magnesium 2.3 mg/dL (1.6-2.6); Potassium 3.6 mmol/L (3.5-5.1); Protein, Total 7.1 g/dL (6.4-8.2); Sodium Level 140 mmol/L (136-145)
[2019-10-13 06:34] VITALS: O2SAT 96
[2019-10-13] MEDS: Aspirin E.C. 81 MG Tablet PO (08:53)
[2019-10-13] MEDS: Carvedilol 6.25 MG Tablet PO (08:53)
[2019-10-13] MEDS: SACUBITRIL/VALSARTAN 49-51 MG TABLET 1 EACH PO (08:54)
[2019-10-13] MEDS: guaiFENesin 1,200 MG Tablet 1200 MG PO (08:54)
[2019-10-13] MEDS: Clopidogrel Bisulfate 75 MG Tablet PO (08:55)
[2019-10-13] MEDS: Furosemide 40 MG/4 ML Vial IV (09:00)
[2019-10-13] MEDS: 0.9% Saline Lock 10 ML Syringe IV (09:02)
--- NOTE | 2019-10-13 09:12 | PN.CARD_ITS ---
Subjectve: Patient seen and evaluated. Appears to be doing much better. Objective: Vital Signs Temp Pulse Resp BP Pulse Ox 98.9 F 66 18 110/74 96 10/13/19 03:14 10/13/19 03:14 10/13/19 03:14 10/13/19 03:14 10/13/19 06:34 Oxygen Flow Rate (L/min) 2 Oxygen Delivery Method Room Air Weight: 231 lb 0.711 oz Body Mass Index (BMI) 35.5 Intake and Output for Last 24 Hours 10/11/19 10/12/19 10/13/19 23:59 23:59 23:59 Intake Total 1730.45 / 1850.45 713.25 / 1053.25 340 / 340 Output Total 4375 / 5350 2825 / 3025 400 / 400 Balance -2644.55 / -3499.55 -2111.75 / -1971.75 -60 / -60 General: Awake, Alert, Oriented x 3 HEENT: PERRL, EOMI, Sclera Non Icteric Neck: Supple, Good ROM, No Lymph Node Enlargement Lungs: Clear to auscultation Cardiovascular: Regular Rhythm, Normal S1, Normal S2, No Murmurs, No Rubs, No Gallops Vascular: No Carotid Bruits, Normal Femoral Pulses, Normal Radial Pulses, Normal Dorsalis Pedal Pulse, Normal Posterior Tibial Pulses Abdomen: Bowel Sounds Present, Soft, Non Tender, No HSM, No Organomegaly Extremities: No Cyanosis, No Clubbing, No edema Musculoskeletal: No Erythema Skin: No Rashes Lymphatic: No Lymph Node Enlargement Neurological: No Focal Motor or Sensory Deficit Psych/Mental Status: Appropriate 10/12/19 06:21: Magnesium 2.2 10/12/19 11:59: WBC 9.5, RBC 5.24, Hgb 15.5, Hct 47.4, MCV 90.5, MCH 29.6, MCHC 32.7, Plt Count 163, MPV 10.3 10/12/19 18:42: Potassium 4.0 10/13/19 05:42: Sodium 140, Potassium 3.6, Chloride 105, Carbon Dioxide 27.0, Anion Gap 8, BUN 40 H, Creatinine 1.19, Est GFR (MDRD) Af Amer 78, Est GFR (MDRD) Non-Af 64, BUN/Creatinine Ratio 33.6 H, Glucose 126 H, Calcium 9.5, Magnesium 2.3, Total Bilirubin 0.80 / 05:42: WBC 9.4, RBC 5.47, Hgb 16.5, Hct 49.7, MCV 90.9, MCH 30.2, MCHC 33.2, Plt Count 220, MPV 10.3 Rhythm: EKG: ECHO: Stress Test: Cardiac Cath: PCI: CT Surgery: Holter monitor: EPS: PPM: CXR: Chest CT Scan: Medical Necessity - Tobacco Use Smoking Status: Current every day smoker Tobacco Use: Pipe Assessment/Plan 1. Respiratory failure: Secondary to acute decompensated systolic congestive heart failure. Patient has improved with IV Lasix, Coreg and Entresto. * We have switched him to p.o. Lasix today * He will continue the other medications and follow-up as an outpatient. 2. Hypertension: Blood pressure is better controlled under current regimen. 3. Coronary artery disease: Patient underwent angioplasty and stenting of the left anterior descending artery. He is doing much better today. He will be discharged for outpatient follow-up He can start cardiac rehabilitation. Patient should be on dual antiplatelet therapy for at least 1 year. We have added a statin to his regimen as well. 4. LV dysfunction: Patient has severe LV dysfunction. He will need an EF assessment in 3 months and if his EF is still less than 35% despite maximal tolerated medical therapy then he would need an AICD. Thank you for allowing me to participate in the care of your patient. Please don't hesitate to call if any issues arise.
[2019-10-13 09:15] VITALS: BP 130/90; PULSE 79; RESP 18; TEMP 36.7; O2SAT 97
--- NOTE | 2019-10-13 09:49 | DCINST_ITS ---
- Discharge Diagnoses Current Active Problems: Current Active and Chronic Problems (Last Reviewed 10/11/19 @ 04:[address] Sly Guadalupe MD) Acute respiratory failure with hypoxia (Acute) Tobacco abuse (Chronic) Obesity (BMI 30-39.9) (Acute) You will use the following diet at home:: Cardiac Your food should be the consistency of: Regular Discharge Activity: May Not Drive - Until follows PCP Call your doctor if you observe: Fever of 101 or Higher, Numbness or Tingling, Change in Color, Inability to have a bowel movement, Shortness of breath, Dizziness, Fainting spells, Swelling in the ankles, Chest pain, Prolonged hiccoughing, Increased palpitations (irregular heartbeat), Uncontrolled pain Allergies/Adverse Reactions: Allergies No Known Allergies Allergy (Verified 10/11/19 00:30) Medications to take at Discharge Atorvastatin Calcium [Lipitor] 40 mg PO QHS #30 tablet 10/13/19 Carvedilol [Coreg (Beta Jesus)] 6.25 mg PO BID #60 tablet 10/13/19 Clopidogrel Bisulfate [Plavix] 75 mg PO DAILY #30 tablet 10/13/19 Furosemide [Lasix] 40 mg PO BID@1000,1800 #60 tablet 10/13/19 Guaifenesin [Mucinex] 1,200 mg PO BID #14 tablet 10/13/19 Potassium Chloride [K-Dur] 40 meq PO BIDCM #60 tablet 10/13/19 Sacubitril/Valsartan 49-51 mg [Entresto 49 mg-51 mg Tablet] 1 each PO BID #30 tablet 10/13/19 The following prescriptions were given: Carvedilol [Coreg (Beta Jesus)] 6.25 mg PO BID #60 tablet Sacubitril/Valsartan 49-51 mg [Entresto 49 mg-51 mg Tablet] 1 each PO BID #30 tablet Potassium Chloride [K-Dur] 40 meq PO BIDCM #60 tablet Furosemide [Lasix] 40 mg PO BID@1000,1800 #60 tablet Atorvastatin Calcium [Lipitor] 40 mg PO QHS #30 tablet Guaifenesin [Mucinex] 1,200 mg PO BID #14 tablet Clopidogrel Bisulfate [Plavix] 75 mg PO DAILY #30 tablet Primary Care Physician: Alberta Morales MD [Primary Care Provider] - Please follow up with your Primary Care Physician in: IN 2 WEEKS Test Results: Test results from this visit will be discussed in further detail at your follow- up appointment, if applicable. Please Follow Up With: Suzi Bellamy MD When: In 2-3 weeks
[2019-10-13 09:56] VITALS: BP 130/90; PULSE 79; RESP 18; TEMP 36.7; O2SAT 97
--- NOTE | 2019-10-13 09:57 | PCM.DC.SUM ---
Discharge Date and Diagnosis Date of Admission: 10/11/19 Date of Discharge: 10/13/19 - Primary Discharge Diagnosis Acute Problems: Active Problems (Last Reviewed 10/11/19 @ 04:[address] Sly Guadalupe MD) Acute respiratory failure with hypoxia (Acute) Obesity (BMI 30-39.9) (Acute) Suspected Problems: Suspected Problems (Last Reviewed 10/11/19 @ 04:[address] Sly Guadalupe MD) Heart failure (Suspected) - Secondary Discharge Diagnosis Chronic Problems: Chronic Problems (Last Reviewed 10/11/19 @ 04:[address] Sly Guadalupe MD) Tobacco abuse (Chronic) Hospital Course and Treatment Summary of Care Provided: [] The patient is a 69 year old M with a significant history of obesity and tobacco abuse/cigar pipe user more than 40 years's admitted to ICU for sudden onset of shortness of breath, cough and diaphoresis and was found severely hypoxic, tachycardic tachypneic, elevated BNP and leukocytosis consistent with acute hypoxic respiratory failure secondary to pulmonary edema and was admitted in ICU. 1. Acute hypoxic respiratory failure secondary to pulmonary edema from acute systolic and diastolic heart failure: Respiratory failure resolved. Oxygen is being weaned off. On CHF core measures. 2D echo ordered. Currently on Lasix 40 mg IV twice daily with supplemental potassium. Stunner Animal and stunt person consulted and appreciated. Patient was on nitroglycerin drip which is currently being tapered as per protocol. BNP landed cleared. Troponin mildly elevated 0.26, and 0.443. COVID 19 PCR negative. Respiratory panel negative. Blood cultures x2 are negative for more than 48 hours procalcitonin normal. 2. Acute systolic and diastolic heart failure, CHF class III most probably ischemic cardiomyopathy: On carvedilol 6.25 mg p.o. twice daily. Rest as mentioned above. 2D echo reviewed. EF 20 to 25%, stage I diastolic dysfunction with severe global hypokinesis of LV. Normal RV size systolic function. Normal atrial size. No significant valvular abnormality. Fasting profile shows total cholesterol 186, LDL 114, HDL Patient had cardiac cath. Was found EF 20% with severe LV dysfunction. Mid LAD 80% for which PCI with LUCIA was done. Severe diffuse disease in the distal portion of OM1. On aspirin, Plavix, Entresto 49-51 mg twice daily, atorvastatin and Lasix. Cardiac rehab. Mild hypokalemia, potassium replaced. Magnesium level normal. Patient is discharged on above medications, Lasix 40 twice daily along with supplemental potassium. Advised to follow with PCP in 1 week with repeat BMP. 3. Elevated transaminitis: ALT 62. Repeat liver chemistry ALT normal 37. 4. Acute kidney injury, most probably prerenal from CHF/hemodynamic fluid shift. Acute kidney injury resolved after diuretic treatment although slight increase in BUN. Creatinine improved from 1.3-1.19. 5. Chronic tobacco abuse/pipe smoker: Patient uses 3 cigars daily. Patient agreed for quitting. 6. Morbid obesity: BMI 38.9. Complicates care. Lifestyle changes recommended. DVT prophylaxis: Subcutaneous Lovenox. Objective: Seen and examined. No acute issues overnight. Blood pressure is controlled. General: Alert, Oriented x3, Cooperative HEENT: Atraumatic, PERRLA, EOMI, Normocephalic Neck: Supple, No JVD, Negative Carotid Bruits Lungs: Air entry diminished in bilateral lung bases, no rales or crepitations or rhonchi. Cardiovascular: Regular rate, Regular Rhythm, Normal S1, Normal S2, No murmurs Abdomen: Bowel Sounds Present, Soft, Non Tender, Non-Distended Extremities: Capillary Refill Less than 3 Seconds, Edema is improved Skin: No rashes, No breakdown Musculoskeletal: No Tenderness to Palpation of Joints or Extremities, Arthritic Changes Neurological: Cranial nerves II-XII grossly intact, Deep Tendon Reflexes 2+/4 and Symmetrical, Neuro grossly intact Psych/Mental Status: Normal Affect, Appropriate - Physical Exam Vitals/I&O's: Vital Signs Temp Pulse Resp BP Pulse Ox 98.1 F 79 18 130/90 H 97 10/13/19 09:56 10/13/19 09:56 10/13/19 09:56 10/13/19 09:56 10/13/19 09:56 Oxygen Flow Rate (L/min) 2 Oxygen Delivery Method Room Air Weight: 231 lb 0.711 oz Body Mass Index (BMI) 35.5 Intake and Output for Last 24 Hours 10/11/19 10/12/19 10/13/19 23:59 23:59 23:59 Intake Total 1730.45 / 1850.45 713.25 / 1053.25 340 / 340 Output Total 4375 / 5350 2825 / 3025 400 / 400 Balance -2644.55 / -3499.55 -2111.75 / -1971.75 -60 / -60 Microbiology Past 72 Hours 10/11/19 01:15 Mucosa - Nose Respiratory Panel (PCR) - Final 10/11/19 00:55 Mucosa - Nasopharyngeal Coronavirus COVID-19 PCR - Final Laboratory Results 10/12/19 06:21: Magnesium 2.2 10/12/19 11:59: WBC 9.5, RBC 5.24, Hgb 15.5, Hct 47.4, MCV 90.5, MCH 29.6, MCHC 32.7, RDW Std Deviation 42.6, RDW Coeff of [place]ane 12.9, Plt Count 163, MPV 10.3 10/12/19 18:42: Potassium 4.0 10/13/19 05:42: Sodium 140, Potassium 3.6, Chloride 105, Carbon Dioxide 27.0, Anion Gap 8, BUN 40 H, Creatinine 1.19, Estim Creat Clear Calc 60.49, Est GFR (MDRD) Af Amer 78, Est GFR (MDRD) Non-Af 64, BUN/Creatinine Ratio 33.6 H, Glucose 126 H, Calcium 9.5, Magnesium 2.3, Total Bilirubin 0.80, AST 13 L, ALT 37, Alkaline Phosphatase 83, Total Protein 7.1, Albumin 3.2, Globulin 3.9, Albumin/Globulin Ratio 0.8 L 10/13/19 05:42: WBC 9.4, RBC 5.47, Hgb 16.5, Hct 49.7, MCV 90.9, MCH 30.2, MCHC 33.2, RDW Std Deviation 43.0, RDW Coeff of [place] 13.0, Plt Count 220, MPV 10.3 Current Medications Aspirin (Ecotrin) 81 mg PO DAILY@0800 [facility] Last Admin: 10/13/19 08:53 Dose: 81 mg Documented by: Atorvastatin Calcium (Lipitor) 40 mg PO QHS [facility] Last Admin: 10/12/19 21:32 Dose: 40 mg Documented by: Atropine Sulfate () 0.5 mg IV UD PRN PRN Reason: HR <50 bpm Carvedilol (Coreg) 6.25 mg PO BID [facility] Last Admin: 10/13/19 08:53 Dose: 6.25 mg Documented by: Clopidogrel Bisulfate (Plavix) 75 mg PO DAILY [facility] Last Admin: 10/13/19 08:55 Dose: 75 mg Documented by: Dextrose (D50w Syringe) 0 gm IV X1 PRN; Protocol PRN Reason: Hypoglycemia Enoxaparin Sodium (Lovenox) 40 mg SC DAILY [facility] Last Admin: 10/13/19 08:54 Dose: Not Given Documented by: Furosemide (Lasix) 40 mg PO BID@1000,1800 [facility] Glucagon () 1 mg IM .X1 PRN PRN Reason: Hypoglycemia Guaifenesin (Mucinex) 1,200 mg PO BID [facility] Last Admin: 10/13/19 08:54 Dose: 1,200 mg Documented by: Heparin Sodium (Beef Lung) (Heparin 500 Unit/5 Ml (100/Ml)) 500 unit IV UD PRN PRN Reason: HEPARIN FLUSH Sodium Chloride () 250 mls @ 15 mls/hr IV .[id number] PRN PRN Reason: Saline Flush Sodium Chloride () 250 mls @ 15 mls/hr IV .[id number] PRN PRN Reason: Additional IVPB Infusion Sodium Chloride () 1,000 mls @ 0 mls/hr IV .Q0M [facility] Labetalol HCl (Trandate) 5 mg IV X1 PRN PRN Reason: SBP > 160 when pulling sheath Stop: 10/14/19 11:28 Pot[facility] Last Admin: 10/13/19 08:53 Dose: 40 meq Documented by: Sacubitril/Valsartan (Entresto 49 Mg-51 Mg Tablet) 1 each PO BID [facility] Last Admin: 10/13/19 08:54 Dose: 1 each Documented by: Sodium Chloride () 10 - 40 ml IV UD PRN PRN Reason: SALINE FLUSH Last Admin: 10/13/19 09:02 Dose: 10 ml Documented by: Sodium Chloride () 500 ml IV BOLUS PRN PRN Reason: VASO-VAGAL PROTOCOL Discharge Activity: May Not Drive - Until follows PCP Call your doctor if you observe: Fever of 101 or Higher, Numbness or Tingling, Change in Color, Inability to have a bowel movement, Shortness of breath, Dizziness, Fainting spells, Swelling in the ankles, Chest pain, Prolonged hiccoughing, Increased palpitations (irregular heartbeat), Uncontrolled pain Home Medications: Medications to take at Discharge Atorvastatin Calcium [Lipitor] 40 mg PO QHS #30 tab 10/13/19 Carvedilol [Coreg (Beta Jesus)] 6.25 mg PO BID #60 tab 10/13/19 Clopidogrel Bisulfate [Plavix] 75 mg PO DAILY #30 tab 10/13/19 Furosemide [Lasix] 40 mg PO BID@1000,1800 #60 tab 10/13/19 Guaifenesin [Mucinex] 1,200 mg PO BID #14 tab 10/13/19 Potassium Chloride [K-Dur] 40 meq PO BIDCM #60 tab 10/13/19 Sacubitril/Valsartan 49-51 mg [Entresto 49 mg-51 mg Tablet] 1 ea PO BID #30 tab 10/13/19 Following Prescrptions Were Given to Patient: Carvedilol [Coreg (Beta Jesus)] 6.25 mg PO BID #60 tab Transmission Status: Received by [id number] Sacubitril/Valsartan 49-51 mg [Entresto 49 mg-51 mg Tablet] 1 ea PO BID #30 tab Transmission Status: Received by [id number] Potassium Chloride [K-Dur] 40 meq PO BIDCM #60 tab Transmission Status: Received by [id number] Furosemide [Lasix] 40 mg PO BID@1000,1800 #60 tab Transmission Status: Received by [id number] Atorvastatin Calcium [Lipitor] 40 mg PO QHS #30 tab Transmission Status: Received by [id number] Guaifenesin [Mucinex] 1,200 mg PO BID #14 tab Transmission Status: Received by [id number] Clopidogrel Bisulfate [Plavix] 75 mg PO DAILY #30 tab Transmission Status: Received by [id number] Primary Care Physician: Alberta Morales MD [Primary Care Provider] - Please follow up with your Primary Care Physician in: IN 2 WEEKS Please Follow Up With: Suzi Bellamy MD When: In 2-3 weeks Medical Necessity - Tobacco Use Smoking Status: Current every day smoker Tobacco Use: Pipe Meaningful Use Info Meaningful Use Diagnoses (Choose all that apply): AMI, CHF - AMI/Post PCI/Angioplasty Aspirin given w/in 24hrs of arrival?: Yes ASA at discharge?: Yes Antiplatelet Therapy at Discharge:: Yes Statins at discharge?: Yes Simone/ARB at discharge?: Yes Beta Jesus at discharge?: Yes Done w/ Acute NC measure.: Yes Documented LVEF (%): 20 - CHF SIMONE/ARB ordered at discharge?: Yes Documented LVEF (%): 20 Inpatient E&M: [id number] Disch Hosp
--- NOTE | 2019-10-13 10:00 | EKG12_ITS ---
Test Reason : AM EKG Blood Pressure : / mmHG Vent. Rate : 061 BPM Atrial Rate : 061 BPM P-R Int : 222 ms QRS Dur : 116 ms QT Int : 422 ms P-R-T Axes : 028 -29 114 degrees QTc Int : 424 ms Sinus rhythm with 1st degree A-V block with Premature atrial complexes Left ventricular hypertrophy with QRS widening T wave abnormality, consider lateral ischemia Abnormal ECG Confirmed by JENNA SIMENTAL, WES ([id number]), publishing editor JAKOB CALHOUN ([id number]) on 10/18/2019 2:54:31 PM Referred By: DR CALVERT Confirmed By:WES WEST MD
== END 2019-10-13 11:42 | disposition home or self-care (01) | DRG 246 ==
LOC: ED 02:29 → ICU 03:09 → PCU 21:03
PROVIDERS: Specialist; Admitting Provider Hospitalist; Emergency Provider Emergency Medicine; PCP Internal Medicine; Visit Provider Internal Medicine
DX: I11.0 Hypertensive heart disease with heart failure (principal); J96.01 Acute respiratory failure with hypoxia; I16.1 Hypertensive emergency; I50.41 Acute combined systolic (congestive) and diastolic (congestive) heart failure; E87.6 Hypokalemia; I25.10 Atherosclerotic heart disease of native coronary artery without angina pectoris; I25.5 Ischemic cardiomyopathy; I49.3 Ventricular premature depolarization; E66.01 Morbid (severe) obesity due to excess calories; Z68.38 Body mass index [BMI] 38.0-38.9, adult; F17.290 Nicotine dependence, other tobacco product, uncomplicated; Z79.02 Long term (current) use of antithrombotics/antiplatelets; Z79.899 Other long term (current) drug therapy
CPT/HCPCS: 36415; 71045; 71275; 80048; 80053; 80061; 82728; 83605; 83735; 83880; 84132; 84145; 84484; 85025; 85027; 85379; 85384; 87040; 87633; 87635; 92928; 93005; 93306; 93458; 94640; 94660; 96360; 97802; 99152; 99153; 99285; 99406; G2023; J7030; J7040; Q9957; Q9967; A4216; C1725; C1769; C1874; C1887; C1894; C8929; C9600; J1327; J1940; U0004

== ENCOUNTER → 2019-10-25 | Outpatient (CLI) | payer MEDICARE, BC, SELFPAY ==
[2019-10-11 03:24] VITALS: BMI 35.5
--- NOTE | 2019-10-25 07:58 | CR.ITP_ITS ---
Diagnosis - General Information Admitting Diagnosis: PCI W/CORONARY STENT Secondary Diagnosis: S/P WI, HEART FAILURE-DIASTOLIC AND SYSTOLIC Personal Learning Style:: Written Barriers to Learning: Vision Impairment Stage of change r/t lifestyle modifications:: Action Gave educational material for:: Treating Heart Disease, Emotions & Heart Disease, Stress Management & Relaxation, Sleep Disorders & Heart Disease, How The Heart Works, What it means to have Heart Disease, How Coronary Artery Disease is Diagnosed, Heart Procedures, What Heart Medications Do, Risk Factors & Modifications, Living an Active Life, Nutrition - Education/Goals Individual Counseling: Initial Assessment: Nicotine/Smoking, Abnormal Cholesterol Levels, High Blood Pressure, Overweight/Obesity Cardiac Rehabilitation Goals: 1. Maintain the individual as the primary focus of care. 2. To improve the patient's quality of life. 3. Identification of cardiac risk factors and provide cardiac risk factor management. 4. Enhance the psychosocial status of the patient. 5. Reconditioning enough to allow the patient to resume customary activities. 6. Control symptoms of cardiac disease Personal Goals: Initial Assessment: Quit smoking (participate in smoking cessation, Improve energy level, Improve knowledge of cardiac disease, Improve muscle strength and endurance, Improve diet and eating habits (eat healthier), Control risk factors (learn risk factor modification) Scale for measuring improvement of personal goals: Enter appropriate number in Comments. 2 = Unchanged. 3 = Slightly Better. 4 = Moderate Improvement. 5 = Met my Goal - Diagnosis & Disease Process Outcomes/Goals: Pt IDs own risk factors & lifestyle modifications by Session 10, Verbalizes symptoms of angina & response by session 3., Pt independently manages Plan/Interventions: Assist Pt to ID & engage in lifestyle modification to reduce CVD risk, Instruct on individual risk factors, Review symptoms of angina & emergency actions, Review secondary diagnosis & identify educational needs. - Safety Referral to Physical Therapy: No Referral to [facility] Case Management: No Fall Risk Assessed:: Yes Assistive Devices:: None Exercise - Initial Assessment - Visit Date of Eval: 10/25/19 Session #:: 0 - INITIAL EVALUATION Mets: Pre-: >5 METS for 30 minutes by discharge - Physician Prescribed Exercise Modalities: Treadmill, Rower, Airdyne, NuStep Frequency: 3x/week for 12 weeks [36 sessions] Intensity: 60-80% of age predicted maximum heart rate reserve Current METSs:: 3.5 Target Heart Rate:: 98-128 Resting Blood Pressure: 130/90 EKG Type: SINUS RHYTHM w/first degree AV block, PACs. - Outcomes & Goals Goals:: Verbalizes understanding of THR, RPE & goal METS by session 6, Documents in home exercise log/reports 30 min aerobic 5 day/wk by DC, Demonstrates accurate pulse taking by DC - Intervention & Plan Exercise Program Goals: Instruct on personal THR & RPE, Instruct on MET level & personal MET goal, Show patient to take own pulse /validate performance until accurate, Instruct on home exercise - Physical Activity Home Exercise Physical Activity - Home Exercise: Safe Exercise, Warm-up, Self-monitoring, Cool-Down, Home Exercise > 30 min Daily, Sitting Time <3 hours/daily - Outcomes & Goals Outcomes/Goals: Demonstrates correct Warm-up/exercise Cool-Down (S3) if = 2.5 METs, Verbalizes symptoms of exercise intolerance by Session 3 (S3), Demonstrate safe equipment use (S3) & follows exercise prescrition (6) - Intervention & Plan Plan/Intervention: Instruct warm-up & cool-down if exercising at > 2 METs, Instruct on symptoms of exercise intolerance & actions to take, Assess intial functional capacity & safety risk Nutrition - Initial Assessment - Program Goals Nutrition Program Goals: LDL <100 optimal. 100 - 129 Near optimal. 130 - 159 Borderline High. 160 - 189 High. Total Cholesterol <200 desirable. 200 - 239 Borderline High. >/= 240 High. HDL < 40 Low >/=60 High. Triglycerides <150 desirable. <199 optimal. VlDL 5 - 40. HgbA1C <7%. BMI <25 Patient has diagnosis of Hyperlipidemia (ICD E78)?: Yes - Visit Date of Assessment:: 10/25/19 Session #:: 0 - initial evaluation - Cholesterol/Lipids Triglycerides (mg/dL): 96 Total Cholesterol (mg/dL): 150 LDL Cholesterol (mg/dL): 114 HDL Cholesterol (mg/dL): 53 Determine presence & major risk factors that modify LDL goal: Hypertension or hypertensive medication, Age men > 45 years; women >/= 55 years Outcomes/Goals: Pt IDs own risk factors & lifestyle modifications by Session 10, Verbalizes symptoms of angina & response by session 3., Pt independently manages Intervention/Plan: Instruct on personal lipid levels & lipid goals/NCEP guidelines, Instruct on cholesterol Referral to dietitian:: Yes - Diabetes (Other Core Measures) Diabetes Type: Not Applicable - Weight Mgt (Other Care) Not Applicable: No Height: 5 ft 10 in Weight:: 231 lb BMI: 33.1 Diagnosis Overweight/Obesity BMI> 30% ICD-10 E66: Yes Diagnosis High BMI/Morbid Obesity BMI> 35% ICD-10 Z68: No Intervention/Plan: Instruct on ideal BMI & set weight loss goal w/patient, Assist pt to ID & incorporate diet changes for weight loss by S9, Refer to Structured Weight Loss program as appropriate, Encourage goal of using 250- 300dcal per session for weight loss - Healthy Eating Habits Will attend diet classes:: Yes Outcomes/Goals:: Consume diet rich in vegs,fruits,whole grain/high fiber,fish,lean meat, Limit sat/trans fats,cholesterol & added salts & sugars Intervention/Plan:: Assess current eating habits Medical - Initial Assessment - Visit Date of Eval: 10/25/19 Session #:: 0 - Medication Compliance Preventative Medication(s):: Aspirin, Clopidogrel/P2Y12 inhibit, Statin/lipid, Beta arielle H/O mental health issues: depression, anxiety, or addiction?: No Doesn?t believe in the benefits of treatment?: No Believes medications are unnecessary or harmful?: No Has a concern about medication side effects?: No Expresses concern over the cost of medications?: No Outcomes/Goals: Verbalizes medications,desired effect & common side effects @ DC, Pt self-reports following medication regimen, Keeps card in wallet w/medications listed by DC Interventions/plans: Instruct on medication effects & side effects, Review me dication list w/patient every two weeks, Instruct importance of taking meds as ordered & assist problem solving - Tobacco Use Tobacco Use: Pipe Years Smokin Do you use smokeless tobacco?: No Outcomes/Goals: Smoking cessation achieved or maintained by discharge, Identify aids/strategies for achieving smoking cessation by session 6 Interventions/plan: Instruct on effects of smoking & provide smoking cessation resource, Assist pt to set quit date & provide encouragement, Assist pt to develop strategies to achieve/maintain quit date, Assist pt w/nicotine replacement & medication for cessation success - Hypertension Hypertension Diagnosis:: Hypertension ICD-10 I10 Resting Blood Pressure:: 130/90 [place] [employer] Hypertension Guidelines: [place] [employer] Hypertension Guidelines. Normal BP Less than 120/80. Elevated BP 120/80. Hypertension Stage 1: BP 130-139/80-89. Hypertesnion Stage 2: BP 140 or higher/90 or higher. Hypertension Crisis: BP higher than 180/120 Outcomes/Goals: Able to verbalize/achieve optimal blood pressure <130/80, Incorporates diet changes & exercise for blood pressure control by DC Interventions/plan: Instruct on optimal blood pressure, hypertension & medications, Instruct on effects of sodium, alcohol, stress, exercise &hypertension - Tobacco Cessation Referral Smoking Cessation Referral:: Yes Individual Education/Counseling:: Yes Education Schedule Given:: Yes Psychosocial - Initial Assess - VIsit Date of Eval: 10/25/19 Session #:: 0 - INITIAL EVALUATION Not Applicable: No History of previous Mental disease:: No - Target Goals Target Goals: Assess presence or absence of depression. Using a valid screening tool, maximizes coping skills. Positive support system - Psychosocial Test Tool Used:: Cipriano Dorman QOL Cardiac, PHQ-9 Questionnaire phq-9 Severity: Severity. 1-4 Minimal Depression. 5-9 Mild Depression. 10-14 Moderate Depression. 15-19 Moderately Sever Depression. 20-27 Severe Depression. Rule: - Referral to Behavioral Health PS - Interventions: Yes Attend Stress Management Classes, No Referral to Behavioral Health if PHQ-9 score >9:, No Referral to [facility], No Referral to Physician if PHQ-9 if score is 5-9: - Outcomes/Goals: See list Psychosocial Outcomes/Goals:: ID's personal stressors & 2 strategies to manage stress by discharge - Intervention/Plan: See List Interventions/Plan:: Assess stressors,coping strategies & signs of derpression on admission, Instruct/assist pt to develop coping & personal stress Mgt strategies, Instruct patient to recognize signs & symptoms of depression, Instruct patient to recog Patient Health Questionnaire Initial Assessment 1. Little interest or pleasure in doing things: Not at all 2. Feeling down, depressed, or hopeless: Not at all 3. Trouble falling or staying asleep, or sleeping too much: Not at all 4. Feeling tired or having little energy: Several days 5. Poor appetite or overeating: Several days 6. Feeling bad about yourself -- or that you are a failure or have let yourself or your family down: Not at all 7. Trouble concentrating on things, such as reading the newspaper or watching television: Not at all 8. Moving or speaking so slowly that other people could have noticed. Or the op posite - being so fidgety or restless that you have been moving around a lot more than usual: Not at all 9. Thoughts that you would be better off , or of hurting yourself in some way: Not at all How difficult have these problems made it for you to do your work, take care of things at home, or get along with other people?: Not difficult at all Total Score: 2 SHARI-Q SV Test - Statements CAD is a disease of the arteries in the heart: I Don't Know Examples of risk factors for heart disease: True Angina is chest pain or discomfort: I Don't Know The benefits of resistance training include: True Eating more meat and dairy products: False Anti-platelet medications such as aspirin are important: I Don't Know The only effective way to manage stress: False An exercise warm-up slowly increases heart rate: True Prepared, processed foods usually have high sodium: True Depression is common after a heart attack: True The statin medications lower cholesterol: I Don't Know To control blood pressure, lower the amount of sodium: True If someone gets chest discomfort during walking: False Transfats are partially hydrogenated vegetable oils: False Sleep apnea that is not treated increases the risk: I Don't Know To control cholesterol, one should become a vegetarian: False Someone knows if he/she is exercising at the right level: True Diabetes cannot be prevented with exercise & health eating: False Stress is a large risk for heart attack: True A diet that can help lower blood pressure is rich in: True - Total Score Total Correct Responses: 14 Self-Efficacy Initial Assessment We would like to know how confident you are in doing certain activities. Please select your confidence level for:: Select your confidence level for the following using the scale 1-10 where 1 is not at all confident and 10 is totally confident. Your score is the average of all 6 responses. Fatigue: How confident are you that you can keep the fatigue caused by your disease from interfering with the things you want to do? Select Number: 3 Physical Discomfort or Pain: How confident are you that you can keep the physical discomfort or pain of your disease from interfering with the things you want to do? Select Number: 3 Emotional Distress: How confident are you that you can keep the emotional distress caused by your disease from interfering with the things you want to do? Select Number: 8 Other Symptoms or Health Problems: How confident are you that you can keep other symptoms or health problems from interfering with the things you want to do? Select Number: 9 Different Tasks and Activities: How confident are you that you can do the different tasks and activities needed to manage your health condition so as to reduce your need to see a doctor? Select Number: 9 Medication: How confident are you that you can do things other than just taking medication to reduce how much your illness affects your everyday life? Select Number: 10 Total Score:: 7 Nutrition Survey - Nutrition Survey Instructions Scoring Instructions: Scoring is as follows: Yes = 1 points. No = 0 point. Patient score that is >/=12 is considered to be at potential nutritional risk and could benefit from a referral to a registered dietitian. - Nutrition Survey Initial Have you lost >10 lbs over the past 2 months without trying?: No Are you following a special diet at home for diabetes, low fat, or low salt?: No Are you interested in meeting with a dietitian for help understanding your diet?: Yes Do you eat less than 3 meals a day?: No Do you eat fatty meats (aguilera, sausage, ribs, etc), fried foods, desserts, large amounts of salad dressings, margarine, butter, or cheese most days?: No Do you have food allergies? [Enter types in comment field]: No Do you eat in restaurants more than 3 times a week?: Yes Do you season food with salt, seasoning salt, or garlic salt?: No Do you used canned, boxed, frozen meals, or soups, seasoning packets?: Yes Total Score:: 3
--- NOTE | 2019-10-25 07:59 | PCM.CR.HP2 ---
CR - History & Physical - General Arrival date:: 10/25/19 Arrival time:: 08:02 Date of Referral:: 10/16/19 Date of CR Evaluation:: 10/25/19 Referring Physician: DR. LOZANO Primary Diagnosis: PCI W/CORONARY STENT PLACEMENT - History of Present Cardiac Event Onset Date: Enter Onset Date of cardiac illnesses in Comment field below Acute Myocardial Infarction within 12 months:: Yes PTCA or coronary stenting:: Yes - 10/12/2019 Heart Failure EF <35%:: Yes - 10/12/2019 EF 20-25% DIASTOLIC & SYSTOLIC HEART FAILURE DOCUMENTED - Medications Home Medications: Ambulatory Orders Medication Instructions Recorded Atorvastatin Calcium [Lipitor] 40 mg PO QHS #30 tab 10/13/19 Carvedilol [Coreg (Beta Jesus)] 6.25 mg PO BID #60 tab 10/13/19 Clopidogrel Bisulfate [Plavix] 75 mg PO DAILY #30 tab 10/13/19 Furosemide [Lasix] 40 mg PO BID@1000,1800 #60 tab 10/13/19 Guaifenesin [Mucinex] 1,200 mg PO BID #14 tab 10/13/19 Potassium Chloride [K-Dur] 40 meq PO BIDCM #60 tab 10/13/19 Sacubitril/Valsartan 49-51 mg 1 ea PO BID #30 tab 10/13/19 [Entresto 49 mg-51 mg Tablet] - Allergies Allergies/Adverse Reactions: Allergies No Known Allergies Allergy (Verified 10/11/19 00:30) - Sleep Disorder Evaluation Hx of Sleep Apnea: No Do you snore loudly (louder than talking or can be heard through closed doors)?: No Do you often feel tired/ fatigued/ sleepy during daytime?: No Has anyone observed you stop breathing during sleep?: No History of Hypertension (for STOP score): Yes STOP Results: Negative Advanced Directives - Advanced Directives Power of Surgical Specialist: Yes Living Will: Yes Advance Directives Information Provided: No Advance Directives on File: Yes Past Medical History - Past Medical Illness Medical History: Past Medical History (Last Updated 10/16/19 @ 08:25 by Aby Hassan) Obesity (BMI 30-39.9) (Chronic) E66.9 Atherosclerosis of coronary artery of [place] heart without angina pectoris I25.10 - Past Surgical History Surgical History: Past Surgical History (Last Updated 10/16/19 @ 08:25 by Aby Hassan) History of coronary artery stent placement (Acute) Onset Date: ~10/12/19 Z95.5 2.75 x 16 mm Synergy MR LUCIA to mLAD 10/12/19 Surgical History: no surgical history Social History - Smoking History Smoking Status: Current every day smoker Years Smokin - PIPE SMOKER Hx Tobacco Use: Yes Hx Smoking Exposure: Yes - Substance Abuse Hx Substance Use: No - Occupation Occupation (List type of work in comments):: Retired - Hobbies, Recreation, Social Activities Hobbies: Walking - WOOD[employer]ING BUSINESS ON SIDE, CANOEING, FISHING, [email or web address], , Exercise, Other Recreational Activities: I am able to engage in all my recreational activities Social Environment - Status Marital Status: - Current Living Arrangements Living Environment:: Spouse - SPOUSE HAS H/O MS BROWN GOES TO THE [facility] FOR PHYSICAL TRAINING - Children How many children do you have?: 1 Do any of your children live nearby?: Yes - [facility] - Safety Do you feel safe in your surroundings?: Yes - Assistance Do you need any assistance at home?: NONE PERSONALLY, MORE OF CAREGIVER FOR 'S CONDITION Review of Systems - Review of Systems Hints: Right click = Denies ([place]). Left click = Reports ([place]) Review of Present Symptoms: Reports: Shortness of Breath with Exertion - MINIMAL NOTICED, HAVEN'T REALLY DONE ANYTHING EXERTIONAL SINCE BEING HOME., Dizziness/Lightheadedness - LITTLE BIT WHEN FIRST GOT OUT OF THE HOSPITAL AFTER TAKING MORNING MEDICATIONS, BUT THAT HAS IMPROVED., Heart Arrhythmia/Irregularities - HX OF 1ST DEGREE AV BLOC WITH PACs, Appetite - Normal, Sleep - Normal. Denies: Shortness of Breath at Rest, Appetite - Special Diet - Pain Is Patient Pain Free?: Yes Pain Location: none Pain Level: 0/10 Risk Factor Assessment - Chief Complaint Chief Complaint: THE PATIENT IS A 69 YR OLD MALE PATIENT OF DR. LOZANO WHO PRESENTS TO CARDIAC REHAB TODAY FOLLOWING RECENT OK AND PCI INTERVENTION ON 10/12/2019. CURRENT EVERYDAY PIPE SMOKER HOWEVER, HE STATES HE HAS NOT SMOKED ANY PIPE SINCE BEING HOME FROM THE HOSPITAL. - Vital Signs Temperature: 97.6 F Respiratory Rate: 16 Pulse Ox: 96 Blood Pressure: 130/90 - Pulse Pulse Rate: 68 Pulse Rhythm: Regular - Blood Cholesterol/Lipids Total Cholesterol (mg/dL) Goal = less than 200 mg/dL: 150 - 10/13/2019 HDL Cholesterol (mg/dL) Goal = less than 40 mg/dL: 53 LDL Cholesterol (mg/dL) Goal = less than 70 mg/dL: 114 Triglycerides (mg/dL) Goal = less than 150 mg/dL: 96 - Diabetes Nutrition Referral for Diabetes: No - Obesity Height: 5 ft 10 in Weight:: 231 lb Weight in Pounds: 231.0 lbs Weight Source: Stated by Patient Body Mass Index (BMI): 33.1 Nutritional Referral for Obesity: Yes - Physical Inactivity Physical Inactivity: Reg Exercise 30 min/day - DOES DO HOME EXERCISE AND [employer] 3 DAYS A WEEK IN THE PAST. - Risk Stratification Risk Guidelines: Lowest Risk: Risk Factor for Diabetes, Moderate Risk: Risk Factor for Dyslipidemia - MIXED HYPERLIPIDEMIA, Risk Factor for Hypertension - 130/90 RESTING BP, Highest Risk: Risk Factor for Smoking, Risk Factor for Obesity - For Smoking Smoking Risk Guidelines: Smoking Low Risk: None or quit greater than 6 months ago. Smoking Moderate Risk: Smoker or quit 6 months or less ago. Smoking High Risk: Smoker - For Dyslipidemia Dyslipidemia Risk Guidelines: Low Risk: Moderate Risk: High Risk: 15-25% fat 25.1-29% fat >/= 30% fat. <7% sat fat 7-9% sat fat >9% sat fat. <150 mg chol 150-299 mg chol >/= 300 mg chol. LDL <100 LDL 100-129 LDL >/= 130. Chol/HDL ratio <5.0 Chol/HDL ratio 5.0-6.0 Chol/HDL ratio >6.0. Triglycerides <100 Triglycerides 100-149 Triglycerides >/= 150 - For Diabetes Mellitus Diabetes Risk Guidelines: Diabetes Low Risk: HgA1c <6.5% and/or FBG <120. Diabetes Moderate Risk: HgA1c 6.6-7.9% and/or FBG 120-180. Diabetes High Risk: HgA1c >/= 8% and/or FBG >180 - For Obesity/Overweight Obesity/Overweight Risk Guidelines: Obesity Low Risk: BMI <25.0. Obesity Moderate Risk: BMI 25-29.9. Obesity High Risk: BMI >/= 30.0 - For Hypertension Hypertension Risk Guidelines: Hypertension Low Risk: Systolic <120 and Diastolic <80. Hypertension Moderate Risk: Systolic 120-139 and Diastolic 80-89. Hypertension High Risk: Systolic >/= 140 and Diastolic >/= 90 - For Sedentary Lifestyle Sedentary Lifestyle Risk Guidelines: Sedentary Lifestyle Low Risk: >/= 1,500 kcal/week. Sedentary Lifestyle Moderate Risk: 700-1,499 kcal/week. Sedentary Lifestyle High Risk: < 700 kcal/week - For Depression Depression Risk Guidelines: Depression Low Risk: Not clinically depressed. Depression Moderate Risk: Mildly depressed. Depression High Risk: Clinically depressed Motivation - Motivation to Participate On a scale of 1 to 10, how prepared are you to commit to attending program?: 9 What do you see as barriers to successfully being able to complete the program?: NONE What do you see as the benefits of succesfully completing the program? In other words, what do you hope to get out of participating in the program?: FEEL BETTER HAVE MY STRENGTH BACK Are there issues you are dealing with that will interfere with completing the program?: NONE Do you have a spouse or signficant other, family or friends who will help support you to complete the program?: YES
[2019-10-25 08:27] VITALS: BP 130/90; PULSE 68; RESP 16; TEMP 36.4; O2SAT 96; BMI 33.1
[2019-10-25 09:02] VITALS: BP 130/90; BMI 33.1
== END | disposition home or self-care (01) ==
PROVIDERS: PCP Internal Medicine; Referring Provider Specialist; Visit Provider Specialist
DX: Z95.5 Presence of coronary angioplasty implant and graft (principal)

== ENCOUNTER 2019-11-19 09:15 | Outpatient (RCR) | payer MEDICARE, BC, SELFPAY ==
[2019-10-25 08:27] VITALS: BMI 33.1
[2019-10-25 08:46] VITALS: BMI 33.1
== END 2019-11-20 23:59 ==
LOC: CR 09:15
PROVIDERS: PCP Internal Medicine; Visit Provider Specialist
DX: I25.10 Atherosclerotic heart disease of native coronary artery without angina pectoris (principal); Z95.5 Presence of coronary angioplasty implant and graft
CPT/HCPCS: 93798

== ENCOUNTER 2019-11-21 09:04 | Inpatient (IN) | payer MEDICARE, BC, SELFPAY ==
[2019-10-25 08:27] VITALS: BMI 33.1
[2019-10-25 09:02] VITALS: BMI 33.1
[2019-11-21] VITALS (23 sets, daily range): BP systolic 84–142; BP diastolic 59–122; PULSE 104–139; RESP 16–32; TEMP 36.7–37.3; O2SAT 96–100; BMI 33.5; BMI 33.7; BMI 33.8
--- NOTE | 2019-11-21 09:10 | RAD_ITS ---
STUDY: X-RAY CHEST REASON FOR EXAM: Male, 69 years old. LOW BP AND HR, LIGHTHEADED, DIAPHORESIS, NEW ONSET AFIB TECHNIQUE: Single AP portable view of the chest. COMPARISON: Comparison is made with prior study dated October 11, 2019. FINDINGS: EKG electrode are seen. The lungs are clear and expanded. There is no demonstrated pleural abnormality. There is severe cardiac enlargement. Normal mediastinum and simona. Normal visualized pulmonary arteries. There is atherosclerotic tortuosity of the aortic arch and descending thoracic aorta. There are diffuse degenerative changes of the visualized thoracic spine. Normal visualized ribs, clavicles, and shoulders. There is no demonstrated abnormality of the visualized soft tissue structures of the upper abdomen. RAD/Chest 1 View (Portable) IMPRESSION: Marked cardiomegaly. The lungs are clear. Electronically Signed: Jose E Peraza, at 9:41 EDT , Service support ,
--- NOTE | 2019-11-21 09:10 | EKG12_ITS ---
Test Reason : ADMISSION EKG Blood Pressure : / mmHG Vent. Rate : 117 BPM Atrial Rate : 117 BPM P-R Int : 000 ms QRS Dur : 106 ms QT Int : 334 ms P-R-T Axes : 000 -34 103 degrees QTc Int : 465 ms Atrial fibrillation Left axis deviation Incomplete left bundle branch block Abnormal ECG When compared with ECG of 13-OCT-2019 05:19, Atrial fibrillation has replaced Sinus rhythm QRS voltage has decreased T wave inversion no longer evident in Lateral leads Confirmed by PAMELA MACIAS ([id number]), manager editorial JOJO HIGGINBOTHAM ([id number]) on 11/22/2019 12:16:47 PM Referred By: MERYL Confirmed By:APMELA MACIAS
--- NOTE | 2019-11-21 09:18 | ED.VISSUMM ---
- ER Visit Summary Date of Service: 11/21/19 Chief Complaint: [Lightheadedness] History of Present Illness: The patient is a 69 M [] Physical Examination: [] Test Results: [] Emergency Department Course and Treatment: [] Treatment Plan: [] Disposition: [] Impression: [] This note was generated with [employer] dictation software. It may contain incorrect words, spelling, and punctuation that were not noted in review of the chart prior to signing ED Disposition - Plan for ED Patient: Referrals: Alberta Morales MD [Primary Care Provider] -
[2019-11-21 09:20] LABS: Absolute Lymphocyte Count 1.53 X10^3/uL (0.83-4.51); Absolute Neutrophil Count 10.4 X10^3/uL (2.0-7.7); Basophil# 0.06 X10^3/uL; Basophil% 0.4 % (0-1); Eosinophils% 0.7 % (0-5); Hematocrit 43.3 % (40-54); Hemoglobin 13.8 g/dL (13.0-16.5); Lymphocyte # 1.53 X10^3/ul (4.0); Lymphocyte % 11.4 % (19-41); Mean Corp Hgb Conc 31.9 g/dL (32-36); Mean Corpuscular Hgb 29.7 pg (27.0-32.0); Mean Corpuscular Volume 93.1 fL (80-94); Mean Platelet Vol. 10.3 fl (6.2-12.0); Monocyte# 1.28 X10^3/uL; Monocyte% 9.5 % (0-10); NRBC Flagged by Analyzer 0 % (0-5); Neutrophil # 10.39 X10^3/uL (2.7-7.7); Neutrophil % 77.1 % (47-70); Platelet Count 360 K/mm3 (150-450); RBC Distribution Width CV 13.1 % (11.6-14.6); RBC Distribution Width SD 44.1 fl (35.1-43.9); Red Blood Count 4.65 M/mm3 (4.6-6.2); White Blood Count 13.5 K/mm3 (4.4-11.0)
--- NOTE | 2019-11-21 09:22 | ED.DCSUM_ITS ---
History of Present Illness Chief Complaint: Palpitations Narrative: The patient is a 69 M with a past medical history of CAD with recent stent placement who presents to the emergency department for low blood pressure and tachycardia. He was seen at his cardiac rehab appointment this morning and was told to come to the emergency department. He states that he has been lightheaded over the past 3 days. He states he has felt like this before in the past whenever he was admitted for his cardiac stent placement at the end of September this year. He underwent PCI of LAD. Currently denies any chest pain, shortness of breath or heart palpitations. He has been feeling lightheaded like he could pass out. He does not know any aggravating or relieving factors. It has been constant. Yesterday he slept all day. Has has not had any swelling in his legs or pain in his calves. No history of DVT/PE. No known history of atrial fibrillation in the past. Patient was recently discharged on either Plavix or Brilinta (chart says Plavix but , no other anticoagulation. Has any recent illnesses including any cough, cold, congestion. No fevers or chills. He has had a recent decrease in his Lasix as he has been having low blood pressure readings at home. He has been in the 80s and 70s systolic. Capacity - Capacity Assessment Tool Can the patient make a choice & communicate that choice?: Yes Can the patient understand benefits, risks and alternatives?: Yes Can the patient make a logical, rational choice?: Yes Past Medical History - Allergies and Home Meds Allergies/Adverse Reactions: Allergies No Known Allergies Allergy (Verified 11/06/19 14:19) Prior records reviewed: Yes Past Medical History: - - CAD, hypertension, hyperlipidemia, CHF Surgical History: - Lives: Spouse/ Significant Other Smoking Status: Former smoker Alcohol: Occasional Drugs: None - Family History Maternal Family History: Family History (Last Reviewed 11/06/19 @ 15:[address] Suzi Bellamy MD) Brother CAD (coronary artery disease) Mother Diabetes CAD (coronary artery disease) Father Abdominal aortic aneurysm Family History: Reports: Diabetes Paternal Family History: Family History (Last Reviewed 11/06/19 @ 15:[address] Suzi Bellamy MD) Brother CAD (coronary artery disease) Mother Diabetes CAD (coronary artery disease) Father Abdominal aortic aneurysm Family History: Reports: - - His father from an aneurysm. Review of Systems All systems negative except as indicated General: Reports: Sweats. Denies: Chills, Fever Eyes: Denies: Visual changes - bilaterally, Diplopia ENT: Denies: Rhinorrhea, Sore throat Cardiovascular: Denies: Chest pain, Palpitations, Heart racing Respiratory: Denies: Dyspnea, Cough, Dyspnea on exertion Gastrointestinal: Denies: Abdominal pain, Nausea, Vomiting, Diarrhea, Hematochezia Genitourinary: Denies: Dysuria, Hematuria, Frequency Musculoskeletal: Denies: Back pain, Extremity Pain Skin: Denies: Rash, Wounds Neurological: Denies: Headache, Numbness Physical Exam Vital Signs/Narrative: Vital Signs Temp Pulse Resp BP Pulse Ox 11/21/19 09:07 98.1 F 139 H 23 H 84/70 L 96 General: Well nourished, Well developed, No Acute Distress Head: Normocephalic, Atraumatic Eyes: Perrl, EOMI ENT: Moist mucous membranes, No rhinorrhea Neck: Supple, Nontender Cardiovascular: Irregular, Tachycardia Respiratory: No distress, CTA bilaterally, Chest nontender Abdomen: Soft, Nontender, Nondistended, Normal bowel sounds Back: Nontender, Normal Inspection Extremities: Nontender, No edema Skin: Normal color, No rash Neurological: Alert, Oriented x3, Cranial nerves II-XII grossly intact, Normal Strength, Normal Sensation Psychological: Normal affect, Normal Mood Diagnostic/Tx/Re-eval Chest X-Ray - ED: 1 View - Chest x-ray shows cardiomegaly. No infiltrate noted. No pleural effusions or pulmonary vascular congestion. - Rhythm Strip Rhythm Strip: A-fib Rate: 134 - EKG Initial EKG Interpretation: Atrial Fibrillation Prior: Changed - EKG does not show any evidence of ST elevation or depression. Is in atrial fibrillation with RVR. Previous EKG for comparison was performed on October 122019 which was a normal sinus rhythm at that time. - Medical Decision Making Patient presented to the emerge department atrial fibrillation with RVR. To have low blood pressure readings in the 70s to 80s systolic. Did start him on IV fluids. Will be cautious given his recent history of echocardiogram showing a ejection fraction of 20 to 25%. Basic lab work obtained, EKG and chest x-ray. Patient's heart rate coming down with IV fluids. Still having some low blood pressure readings. His only complaint at this time is feeling fatigued. Lab work showed his creatinine to be slightly elevated compared to previous. His potassium is high but is on supplemental potassium at home. Initial troponin negative. Will continue to follow. He does have an elevated chads-vas score of 4 and will discuss with hospitalist about potentially starting heparin. Plan on bringing the patient into the hospital for further evaluation and management. Will start Cardizem for rate continues to stay elevated but will be cautious given his low blood pressure readings. I believe patient's new atrial fibrillation has to do with low volume status given his Lasix use and history of cardiomyopathy on previous echocardiogram. This was all discussed with the patient. All questions addressed. He is agreeable to staying in the hospital at this time. After IV fluids finished his blood pressure did come up well. Patient discussed with on-call hospitalist. They spoke with the gravity manager and recommended IV bolus of amiodarone. Will give this in the emergency department. We will hold off on anticoagulation at this time. Patient understands and is agreeable with this plan. - Critical Care Time Critical care time (excluding procedures): 30-74 minutes, Discussing w/Patient &/or Family/Circulation Worker, Discussing w/Consultants, Arranging Admission or Transfer, Performing Direct Patient Care at Bedside ED Disposition - Plan for ED Patient: Disposition: Acute Care Hospital [facility] Diagnosis: Atrial fibrillation with RVR, Hypotension, Hyperkalemia
[2019-11-21] MEDS: 0.9% Normal Saline 1,000 ML 999 ML IV (09:29)
--- NOTE | 2019-11-21 09:37 | ED.RN ---
pt called pt's and informed that is in er. will update when testing back
[2019-11-21 09:45] LABS: Anion Gap 5 (5-15); BNP,B-Type NATRIURETIC PEPTIDE 951.4 pg/mL (0-100); BUN 50 mg/dL (7-18); BUN/Creat Ratio 29.9 RATIO (10-20); Calcium,Total 9.5 mg/dL (8.5-10.1); Chloride 105 mmol/L (98-107); Creatinine, Serum 1.67 mg/dL (0.70-1.30); EST Glomerular Filtration Rate 44 mL/min (>60); Est Glom Filt Rate - Afr Amer 53 mL/min (>60); Estimated Creatinine Clearance 43.11 ml/min; Glucose 131 mg/dL (74-106); Magnesium 2.4 mg/dL (1.6-2.6); Potassium 5.7 mmol/L (3.5-5.1); Sodium Level 135 mmol/L (136-145)
--- NOTE | 2019-11-21 09:59 | ED.RN ---
phone given for pt to call to let her know of admission. dr. zapata aware of bnp and continued fluids and hypotension. no new orders
--- NOTE | 2019-11-21 10:07 | NURSING ---
DR SHETH FOR DR DIAZ
--- NOTE | 2019-11-21 10:14 | NURSING ---
PCU OBS TERELETSKY AFIB WITH RVR
--- NOTE | 2019-11-21 11:18 | EKG12_ITS ---
Test Reason : Blood Pressure : / mmHG Vent. Rate : 134 BPM Atrial Rate : 134 BPM P-R Int : 000 ms QRS Dur : 112 ms QT Int : 316 ms P-R-T Axes : 000 -32 087 degrees QTc Int : 471 ms Supraventricular tachycardia with Premature supraventricular complexes Left axis deviation Incomplete left bundle branch block Abnormal ECG Confirmed by PAMELA MACIAS ([id number]), managing editor MAIRA VILLANUEVA ([id number]) on 11/26/2019 2:15:49 PM Referred By: ERROL Confirmed By:PAMELA MACIAS
--- NOTE | 2019-11-21 11:18 | ECHOCS_ITS ---
Reason For Study: Afib/Flutter Procedure This was a 2D Doppler, Color Flow transthoracic echocardiogram. The study was technically difficult. Contrast injection was performed. Exam performed portable in patient room. Left Ventricle Moderate concentric left ventricular hypertrophy. Moderately dilated left ventricle. The estimated ejection fraction is 25 %. Mid-Anterior : Akinetic. Mid-Lateral : Severely Hypokinetic. Mid- anteroseptal : Severely Hypokinetic. Anterior Boling : Akinetic. Right Ventricle Normal size and thickness. Normal systolic function. Atria Normal left atrium. Normal right atrium. Normal atrial septum. Mitral Valve The mitral valve is structurally normal. No prolapse or stenosis seen. Tricuspid Valve Normal tricuspid valve. Unable to estimate RV systolic pressure due to insufficient tricuspid regurgitant envelope. Aortic Valve Trisinus/trileaflet aortic valve. Mild diffuse aortic valve thickening. Pulmonic Valve The pulmonic valve is not well visualized. Great Vessels Normal aortic root. Normal arch. Normal inferior vena cava. Inferior vena cava collapse with sniff. Pericardium/Pleural Small pericardial effusion. Circumferential effusion. There are no echocardiographic indications of cardiac tamponade. Medication Diluted definity 5ml given slow IV push to enhance endocardial definition. MMode/2D Measurements & Calculations LVIDd: 5.6 cm IVSd: 1.5 cm LAV(MOD-bp): 48.9 ml LVIDs: 4.7 cm LVPWd: 1.6 cm FS: 15.6 % LAV(MOD-bp) Indexed: 22.1 ml/m2 LAV(MOD-sp2): 62.8 ml LAV(MOD-sp4): 33.4 ml LA A4 area: 14.8 cm2 RA A4 area: 14.9 cm2 Doppler Measurements & Calculations MV E max kulwinder: 61.1 cm/sec Ao V2 max: 131.9 cm/sec LV V1 max: 89.3 cm/sec Ao max P.0 mmHg LV V1 max P.3 mmHg Ao V2 mean: 74.9 cm/sec LV V1 mean P.3 mmHg Ao mean P.8 mmHg LV V1 mean: 50.7 cm/sec Ao V2 VTI: 19.1 cm LV V1 VTI: 13.1 cm Interpretation Summary Moderate concentric left ventricular hypertrophy. Moderately dilated left ventricle. The estimated ejection fraction is 25 %. Unable to estimate RV systolic pressure due to insufficient tricuspid regurgitant envelope. Small pericardial effusion. Circumferential effusion. There are no echocardiographic indications of cardiac tamponade. Compared to echo report dated 10/11/2019, LV function has remained about the same, patient now appears to be in atrial fibrillation, and now appears to have a small circumferential pericardial effusion without evidence of our right atrial or right ventricular collapse. Ordering Physician: Alfredo Dacosta Referring Physician: Alberta Morales M.D. Performed By: Edward Nieto RCS
--- NOTE | 2019-11-21 12:06 | PCM.CONS.C ---
Problem List (1) Atrial fibrillation with RVR Status: Acute (2) Hypotension Status: Acute (3) Coronary artery disease Status: Acute Qualifiers: Coronary Disease-Associated Artery/Lesion type: [place] artery [place] vs. transplanted heart: [place] heart Associated angina: without angina Qualified Code(s): I25.10 - Atherosclerotic heart disease of [place] coronary artery without angina pectoris (4) History of coronary artery stent placement Status: Acute Comment: 2.75 x 16 mm Synergy MR LUCIA to mLAD 10/12/19 (5) Tobacco abuse Status: Chronic Reason for Consult Date of Consultation: 11/21/19 Reason for Consultation: Newly discovered atrial fibrillation, shortness of breath, lightheadedness, hypotension, coronary disease status post recent stent. History of Present Illness: The patient is a 69 year old M, nondiabetic, previous smoker, drinks about 1 bottle of wine per week, hypertension, recently admitted in September 2019 with new onset shortness of breath. At that time he underwent a 2D echo with Doppler which showed severe global LV dysfunction with an EF around 25%. He underwent a diagnostic coronary angiogram was found to have a significant lesion in his mid LAD and underwent successful angioplasty and drug-eluting stenting receiving a 2.75X 16 Promus Synergy drug-eluting stent by Dr. Bellamy. The patient was subsequently discharged, and is up engaging in cardiac rehab. He was recently found to be somewhat hypotensive, and his Lasix was decreased from 40 twice daily to 40 mg a day. Patient then went to cardiac rehab today felt somewhat lightheaded, was found to be in rapid atrial fibrillation and somewhat hypotension with a blood pressure in the 90s. He denied any chest pain, angina, and is unaware of his atrial fibrillation. His EKG shows atrial fibrillation with rapid ventricular response and somewhat low voltage. His physical exam shows clear lungs bilaterally, irregular regular rhythm, no edema. Echocardiogram is pending. His most recent echocardiogram date is as follows: The estimated ejection fraction is 20-25 %. Stage 1 diastolic dysfunction. There is severe global hypokinesis of the left ventricle. Trivial mitral valve insufficiency. The study was technically difficult. Contrast injection was performed. [] Past Medical History Allergies/Adverse Reactions: Allergies No Known Allergies Allergy (Verified 11/06/19 14:19) Home Medications: Ambulatory Orders Medication Instructions Recorded Atorvastatin Calcium [Lipitor] 40 mg PO QHS #30 tab 10/13/19 Carvedilol [Coreg (Beta Jesus)] 6.25 mg PO BID #60 tab 10/13/19 Clopidogrel Bisulfate [Plavix] 75 mg PO DAILY #30 tab 10/13/19 Sacubitril/Valsartan 49-51 mg 1 ea PO BID #30 tab 10/13/19 [Entresto 49 mg-51 mg Tablet] coenzyme Q10 200 mg capsule 200 mg PO DAILY 11/06/19 garlic extract 600 mg tablet 600 mg PO DAILY 11/06/19 ginkgo biloba 120 mg tablet 120 mg PO DAILY 11/06/19 glucosamine 750 mg-msm 125 1 tab PO DAILY 11/06/19 mg-chondroitin 600 mg-D3 1,000 unit tablet omega-3 fatty acids 500 mg capsule 500 mg PO DAILY 11/06/19 potassium chloride 20 mEq 40 meq PO BID tab 11/06/19 tablet,extended release(part/cryst) furosemide 40 mg tablet 40 mg PO DAILY #60 tab 11/19/19 Past Medical History (Chronic Problems): Chronic Problems (Last Reviewed 11/06/19 @ 15:[address] Suzi Bellamy MD) Tobacco abuse (Chronic) Obesity (BMI 30-39.9) (Chronic) Surgical History: - - *Family History Maternal Family History: Family History (Last Reviewed 11/06/19 @ 15:[address] Suzi Bellamy MD) Brother CAD (coronary artery disease) Mother Diabetes CAD (coronary artery disease) Father Abdominal aortic aneurysm History Items: Diabetes Paternal Family History: Family History (Last Reviewed 11/06/19 @ 15:[address] Suzi Bellamy MD) Brother CAD (coronary artery disease) Mother Diabetes CAD (coronary artery disease) Father Abdominal aortic aneurysm History Items: - - His father from an aneurysm. Lives: Spouse/ Significant Other Smoking Status: Former smoker Tobacco Use: Pipe Alcohol: Occasional Drugs: None Review of Systems - Review of Systems General: Denies: Fever, Night Sweats, Fatigue Cardiovascular: Reports: Dizziness. Denies: Chest Discomfort, Shortness of Breath, Orthopnea, PND, Peripheral Edema, Palpitations, Lightheadedness, Near Syncope, Syncope Respiratory: Denies: Cough, Sputum Production, Hemoptysis Gastrointestinal: Denies: Hematemesis, Hematochezia, Melena Genitourinary: Denies: Dysuria, Hematuria Skin: Denies: Rash Subjectve: Patient resting comfortably, no acute distress. Objective: Vital Signs Temp Pulse Resp BP Pulse Ox 98.3 F 120 H 18 93/70 99 11/21/19 11:05 11/21/19 11:05 11/21/19 11:05 11/21/19 11:05 11/21/19 11:05 Oxygen Flow Rate (L/min) 2 Oxygen Delivery Method Room Air Weight: 228 lb 9.91 oz Body Mass Index (BMI) 33.7 Intake and Output for Last 24 Hours 11/19/19 11/20/19 11/21/19 23:59 23:59 23:59 Intake Total 1103 / 1103 Balance 1103 / 1103 General: Awake, Alert, Oriented x 3 HEENT: PERRL, EOMI, Sclera Non Icteric Neck: Supple, Good ROM, No Lymph Node Enlargement Lungs: Clear to auscultation Cardiovascular: Irregular Rhythm, Normal S1, Normal S2, No Murmurs, No Rubs, No Gallops Vascular: No Carotid Bruits, Normal Femoral Pulses, Normal Radial Pulses, Normal Dorsalis Pedal Pulse, Normal Posterior Tibial Pulses Abdomen: Bowel Sounds Present, Soft, Non Tender, No HSM, No Organomegaly Extremities: No Cyanosis, No Clubbing, No edema Neurological: No Focal Motor or Sensory Deficit 11/21/19 09:10: WBC 13.5 H, RBC 4.65, Hgb 13.8, Hct 43.3, MCV 93.1, MCH 29.7, MCHC 31.9 L, Plt Count 360, MPV 10.3, Immature Gran % (Auto) 0.900, Neut % (Auto) 77.1 H, Lymph % (Auto) 11.4 L, [place] % (Auto) 9.5, Eos % (Auto) 0.7, Baso % (Auto) 0.4, Absolute Neuts (auto) 10.4 H, Nucleated RBC % 0 11/21/19 09:10: Sodium 135 L, Potassium 5.7 H, Chloride 105, Carbon Dioxide 25.0, Anion Gap 5, BUN 50 H, Creatinine 1.67 H, Est GFR (MDRD) Af Amer 53 L, Est GFR (MDRD) Non-Af 44 L, BUN/Creatinine Ratio 29.9 H, Glucose 131 H, Calcium 9.5, Magnesium 2.4, Troponin I < 0.015 11/21/19 09:10: B-Natriuretic Peptide 951.4 H Rhythm: EKG: ECHO: From 10/12/2019 is as follows: The estimated ejection fraction is 20-25 %. Stage 1 diastolic dysfunction. There is severe global hypokinesis of the left ventricle. Trivial mitral valve insufficiency. The study was technically difficult. Contrast injection was performed. Repeat echo is pending. Stress Test: Cardiac Cath: PCI: CT Surgery: Holter monitor: EPS: PPM: CXR: Chest CT Scan: Assessment/Plan 1. Cardiomyopathy: The patient has what appears to be a cardiomyopathy out of proportion to his degree of coronary artery disease. Although he did have a angioplasty and drug-eluting stenting to his LAD in September 2019, his LV function was to be 25% with severe LV dysfunction. It is possible the patient may have had asymptomatic intermittent atrial fibrillation to explain his cardiomyopathy. He denies any inciting factors such as flu or viral illness. The patient does drink about 1 bottle of wine per week, but never used to drink heavily during his adult years. The patient is now found to be a newly discovered atrial fibrillation with rapid ventricular response. I believe the patient would benefit from cardiac resynchronization and increasing diastolic filling time. I recommended the patient be initiated on IV amiodarone therapy per protocol. In addition he will require anticoagulation therapy in the hospital with subcu Lovenox or starting Eliquis 5 mg p.o. twice daily. Prior to starting any anticoagulation I would recommend a repeat echocardiogram given the patient's low voltage on his EKG to ensure that he does not have a concomitant pericardial effusion. If no pericardial effusion is detected, I would continue triple therapy with baby aspirin, Plavix, and Eliquis 5 mg p.o. twice daily for both atrial fibrillation and severe LV dysfunction. After 1 day of IV amiodarone, I would switch the patient to amiodarone 400 mg p.o. twice daily for 3 days followed by 200 mg p.o. daily. This will continue for 3 weeks time, at which time we will attempt DC cardioversion. Believe the patient would benefit from cardiac resynchronization. Assuming his cardioversion is successful and remains durable, I would recommend he resume cardiac rehab for period of 3 months time. We will then repeat his echocardiogram to determine if he is garnered any benefit from cardiac revascularization, medical therapy, cardiac resynchronization, and cardiac rehab. If his LV function has not improved past 35%, the patient may require a AICD for primary prevention. In the meantime we will continue his Coreg, Entresto, Lasix 40 mg p.o. daily. Recommend 1500 cc fluid restriction. 2. Coronary artery disease: The patient has no anginal symptoms or dynamic EKG changes. No indication for repeat catheterization at this time. Continue baby aspirin and Plavix. 3. Hyperlipidemia: Continue statin based medications. Continue Lipitor. 4. Discussed with Dr. Last. Thank you very much for the opportunity to participate in the cardiac care of your patient. Consultation time took place between 1130 and and 12:15 PM. Inpatient E&M: 43466 Init Hosp L2
[2019-11-21] MEDS: Amiodarone 360 MG in Dextrose 5% Viaflo Bag 192.8 ML 33.3 MG CONT INF (12:08)
[2019-11-21] MEDS: 0.9% Normal Saline 1,000 ML 75 ML IV (12:33)
--- NOTE | 2019-11-21 14:46 | HP.PCM_ITS ---
Problem List (1) Atrial fibrillation with RVR Status: Acute (2) Ischemic cardiomyopathy Status: Chronic (3) Coronary artery disease Status: Chronic Qualifiers: Coronary Disease-Associated Artery/Lesion type: [place] artery [place] vs. transplanted heart: [place] heart Associated angina: without angina Qualified Code(s): I25.10 - Atherosclerotic heart disease of [place] coronary artery without angina pectoris (4) History of coronary artery stent placement Status: Chronic Comment: 2.75 x 16 mm Synergy MR LUCIA to mLAD 10/12/19 (5) Tobacco abuse Status: Chronic (6) Obesity (BMI 30-39.9) Status: Chronic History of Present Illness Date of Admission: 11/21/19 Chief Complaint: abnormal heart rhythm The patient is a 69 year old M with past medical history of CAD with prior stent placement per Dr. Duffy September of this year, ischemic CM with EF 20%. He was undergoing cardiac rehab today and was found to be in atrial fibrillation which she has not had in the past. He was sent to the emergency room found to be in A. fib with RVR. The patient denied feeling any palpitations at all, though he had been having some lightheadedness and weakness over the past week. He denies chest pain, shortness of breath, pressure, tightness, heaviness, or lower extremity edema. He has noticed that this past week he has been very sleepy and has very little energy and has been having daily headaches in the morning. His customer program specialist was contacted and he was started on an amiodarone drip. He is currently resting comfortably in bed no acute distress, feels mildly fatigued however otherwise in his normal state of health. He denies ever having atrial fibrillation in the past. [] Past Medical History Past Medical History (Chronic Problems): Chronic Problems (Last Reviewed 11/06/19 @ 15:[address] Suzi Bellamy MD) Ischemic cardiomyopathy (Chronic) Coronary artery disease (Chronic) History of coronary artery stent placement (Chronic ~10/12/19) 2.75 x 16 mm Synergy MR LUCIA to mLAD 10/12/19 Tobacco abuse (Chronic) Obesity (BMI 30-39.9) (Chronic) Medical History: Medical History (Last Reviewed 11/06/19 @ 15:[address] Suzi Bellamy MD) Obesity (BMI 30-39.9) (Chronic) E66.9 Atherosclerosis of coronary artery of [place] heart without angina pectoris I25.10 Essential hypertension I10 Hyperlipidemia E78.5 Allergies No Known Allergies Allergy (Verified 11/06/19 14:19) Home Medications: Ambulatory Orders Medication Instructions Recorded Atorvastatin Calcium [Lipitor] 40 mg PO QHS #30 tab 10/13/19 Carvedilol [Coreg (Beta Jesus)] 6.25 mg PO BID #60 tab 10/13/19 Clopidogrel Bisulfate [Plavix] 75 mg PO DAILY #30 tab 10/13/19 Sacubitril/Valsartan 49-51 mg 1 ea PO BID #30 tab 10/13/19 [Entresto 49 mg-51 mg Tablet] coenzyme Q10 200 mg capsule 200 mg PO DAILY 11/06/19 garlic extract 600 mg tablet 600 mg PO DAILY 11/06/19 ginkgo biloba 120 mg tablet 120 mg PO DAILY 11/06/19 glucosamine 750 mg-msm 125 1 tab PO DAILY 11/06/19 mg-chondroitin 600 mg-D3 1,000 unit tablet omega-3 fatty acids 500 mg capsule 500 mg PO DAILY 11/06/19 potassium chloride 20 mEq 40 meq PO BID tab 11/06/19 tablet,extended release(part/cryst) furosemide 40 mg tablet 40 mg PO DAILY #60 tab 11/19/19 Surgical History: Surgical History (Last Reviewed 11/06/19 @ 15:[address] uSzi Bellamy MD) History of coronary artery stent placement (Acute) Onset Date: ~10/12/19 Z95.5 2.75 x 16 mm Synergy MR LUCIA to mLAD 10/12/19 Surgical History: tonsillectomy Psychiatric History: No pertinent psych hx Lives: Spouse/ Significant Other Smoking Status: Former smoker Tobacco Use: Pipe Alcohol: Occasional Drugs: None - *Family History Maternal Family History: Family History (Last Reviewed 11/06/19 @ 15:[address] Suzi Bellamy MD) Brother CAD (coronary artery disease) Mother Diabetes CAD (coronary artery disease) Father Abdominal aortic aneurysm History Items: Diabetes Paternal Family History: Family History (Last Reviewed 11/06/19 @ 15:[address] Suzi Bellamy MD) Brother CAD (coronary artery disease) Mother Diabetes CAD (coronary artery disease) Father Abdominal aortic aneurysm History Items: - - His father from an aneurysm. Review of Systems Constitutional: Denies: Chills, Fever, Weight Change HEENT: Denies: Head Aches, Sinus Congestion, Sinus Drainage Cardiovascular: Denies: Chest Pain, Palpitations Respiratory: Denies: Cough, Shortness of breath at rest, Sputum production Gastrointestinal: Denies: Abdominal Pain, Nausea, Vomiting Genitourinary: Denies: Dysuria Musculoskeletal: Denies: Joint Pain, Joint Tenderness Skin: Denies: Rash, Wounds Neurological: Denies: Numbness, Tingling, Focal weakness Psychiatric: Denies: Anxiety, Depression, Homicidal Ideations, Suicidal Ideations Hematologic/ Lymphatic: Denies: Easy Bruising, Easy Bleeding VTE Information - Inpt Only VTE Present on Admission: No VTE Mechan Device Prophylaxis: None VTE Pharm Prophylaxis ordered?: Yes Patient Problems: Active and Suspected Problems (Last Reviewed 11/06/19 @ 15:[address] Suzi Bellamy MD) Atrial fibrillation with RVR (Acute) Hypotension (Acute) Hyperkalemia (Acute) - Physical Exam Vitals/I&O's: Vital Signs Temp Pulse Resp BP Pulse Ox 98.3 F 113 H 27 H 99/72 98 11/21/19 11:05 11/21/19 14:00 11/21/19 14:00 11/21/19 14:00 11/21/19 14:00 Oxygen Flow Rate (L/min) 2 Oxygen Delivery Method Room Air Weight: 228 lb 9.91 oz Body Mass Index (BMI) 33.7 Intake and Output for Last 24 Hours 11/19/19 11/20/19 11/21/19 23:59 23:59 23:59 Intake Total 1165.16 / 1165.16 Balance 1165.16 / 1165.16 General: Alert, Oriented x3, Cooperative HEENT: Atraumatic, PERRLA, EOMI, Normocephalic Neck: Supple, No JVD, Negative Carotid Bruits Lungs: Clear to auscultation, Normal air movement Cardiovascular: No murmurs, Irregular Rate, Tachycardic Abdomen: Bowel Sounds Present, Soft, Non Tender Extremities: No edema, Capillary Refill Less than 3 Seconds Skin: No rashes, No breakdown Musculoskeletal: No Tenderness to Palpation of Joints or Extremities Neurological: Cranial nerves II-XII grossly intact Psych/Mental Status: Normal Affect, Appropriate, Alert and oriented to time, place, person, mood and affect Laboratory Results 11/21/19 09:10: WBC 13.5 H, RBC 4.65, Hgb 13.8, Hct 43.3, MCV 93.1, MCH 29.7, MCHC 31.9 L, RDW Std Deviation 44.1 H, RDW Coeff of [place] 13.1, Plt Count 360, MPV 10.3, Immature Gran % (Auto) 0.900, Neut % (Auto) 77.1 H, Lymph % (Auto) 11.4 L, [place] % (Auto) 9.5, Eos % (Auto) 0.7, Baso % (Auto) 0.4, Absolute Neuts (auto) 10.4 H, Absolute Lymphs (auto) 1.53, Nucleated RBC % 0 11/21/19 09:10: Sodium 135 L, Potassium 5.7 H, Chloride 105, Carbon Dioxide 25.0, Anion Gap 5, BUN 50 H, Creatinine 1.67 H, Estim Creat Clear Calc 43.11, Est GFR (MDRD) Af Amer 53 L, Est GFR (MDRD) Non-Af 44 L, BUN/Creatinine Ratio 29.9 H, Glucose 131 H, Calcium 9.5, Magnesium 2.4, Troponin I < 0.015 11/21/19 09:10: B-Natriuretic Peptide 951.4 H Current Medications Acetaminophen (Tylenol) 650 mg PO Q6H PRN PRN PRN Reason: Pain Score 1-10/Temp > 100.7 F Apixaban (Eliquis) 5 mg PO BID [facility] Atorvastatin Calcium (Lipitor) 40 mg PO QHS [facility] Carvedilol (Coreg) 6.25 mg PO BID [facility] Clopidogrel Bisulfate (Plavix) 75 mg PO DAILY [facility] Sodium Chloride () 1,000 mls @ 75 mls/hr IV .[id number] [facility] Last Admin: 11/21/19 12:33 Dose: 75 mls/hr Documented by: Amiodarone HCl 360 mg/ (Dextrose) 200 mls @ 33.333 mls/hr CONT INF .Q6H [facility] Stop: 11/21/19 17:17 Last Infusion: 11/21/19 14:00 Dose: 1 mg/min, 33.3 mls/hr Documented by: Sodium Chloride () 250 mls @ 15 mls/hr IV .[id number] PRN PRN Reason: Saline Flush Sodium Chloride () 250 mls @ 15 mls/hr IV .[id number] PRN PRN Reason: Additional IVPB Infusion Amiodarone HCl 360 mg/ (Dextrose) 200 mls @ 16.667 mls/hr CONT INF .Q12H [facility] Stop: 11/22/19 11:59 Ondansetron HCl (Zofran) 4 mg IV Q8H PRN PRN PRN Reason: NAUSEA/VOMITING Sodium Chloride () 10 - 40 ml IV UD PRN PRN Reason: SALINE FLUSH Assessment/Plan All Active Problems (Last Reviewed 11/06/19 @ 15:[address] Suzi Bellamy MD) Atrial fibrillation with RVR (Acute) Hypotension (Acute) Hyperkalemia (Acute) Acute respiratory failure with hypoxia (Acute) 1. Afib RVR - new onset. cardiology consult. repeat echo. continue amio and coreg. Started on eliquis 2. CAD with ichemic CM - ef previously known 20%. had stent in September 2019. continue coreg, plavix, statin 3. former smoker - stopped smoking pipe about 4 weeks ago. 4. 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
[2019-11-21] MEDS: Amiodarone 360 MG in Dextrose 5% Viaflo Bag 192.8 ML 16.7 MG CONT INF (19:23)
[2019-11-21] MEDS: SACUBITRIL/VALSARTAN 49-51 MG TABLET 1 EACH PO (21:35)
[2019-11-21] MEDS: Carvedilol 6.25 MG Tablet PO (21:35)
[2019-11-21] MEDS: Atorvastatin Calcium 40 MG Tablet PO (21:35)
[2019-11-22] VITALS (28 sets, daily range): BP systolic 86–134; BP diastolic 57–108; PULSE 91–122; RESP 16–32; TEMP 35.3–36.9; O2SAT 92–100
[2019-11-22] MEDS: 0.9% Normal Saline 1,000 ML 75 ML IV (01:40)
[2019-11-22 06:04] LABS: Absolute Lymphocyte Count 1.33 X10^3/uL (0.83-4.51); Absolute Neutrophil Count 6.6 X10^3/uL (2.0-7.7); Basophil# 0.05 X10^3/uL; Basophil% 0.6 % (0-1); Eosinophils% 1.1 % (0-5); Hematocrit 37.4 % (40-54); Lymphocyte # 1.33 X10^3/ul (4.0); Lymphocyte % 14.8 % (19-41); Mean Corp Hgb Conc 32.1 g/dL (32-36); Mean Corpuscular Hgb 29.7 pg (27.0-32.0); Mean Corpuscular Volume 92.6 fL (80-94); Mean Platelet Vol. 10.4 fl (6.2-12.0); Monocyte# 0.86 X10^3/uL; Monocyte% 9.6 % (0-10); NRBC Flagged by Analyzer 0 % (0-5); Neutrophil # 6.58 X10^3/uL (2.7-7.7); Neutrophil % 73.5 % (47-70); Platelet Count 234 K/mm3 (150-450); RBC Distribution Width CV 12.9 % (11.6-14.6); RBC Distribution Width SD 43.6 fl (35.1-43.9); Red Blood Count 4.04 M/mm3 (4.6-6.2)
[2019-11-22 06:22] LABS: Anion Gap 8 (5-15); BUN 33 mg/dL (7-18); BUN/Creat Ratio 31.4 RATIO (10-20); Calcium,Total 8.8 mg/dL (8.5-10.1); Chloride 109 mmol/L (98-107); Creatinine, Serum 1.05 mg/dL (0.70-1.30); EST Glomerular Filtration Rate 74 mL/min (>60); Est Glom Filt Rate - Afr Amer 90 mL/min (>60); Glucose 130 mg/dL (74-106); Potassium 4.4 mmol/L (3.5-5.1); Sodium Level 138 mmol/L (136-145)
[2019-11-22 07:06] LABS: Erythrocyte Sedimentation Rate 66 mm/hr (0-20)
--- NOTE | 2019-11-22 08:21 | PCM.PN.CARD ---
Subjectve: Patient sitting up in bed, no acute distress. Telemetry showed atrial fibrillation with rapid ventricular response but slower heart rate than yesterday. IV amiodarone infusing. No chest pain or anginal symptoms. Objective: Vital Signs Temp Pulse Resp BP Pulse Ox 97.9 F 121 H 24 H 100/77 99 11/22/19 08:00 11/22/19 08:00 11/22/19 08:00 11/22/19 08:00 11/22/19 08:00 Oxygen Flow Rate (L/min) 2 Oxygen Delivery Method Room Air Weight: 228 lb 9.91 oz Body Mass Index (BMI) 33.7 Intake and Output for Last 24 Hours 11/20/19 11/21/19 11/22/19 23:59 23:59 23:59 Intake Total 1696.40 / 1696.40 1117.37 / 1117.37 Output Total 1025 / 1025 500 / 500 Balance 671.40 / 671.40 617.37 / 617.37 General: Awake, Alert, Oriented x 3 HEENT: PERRL, EOMI, Sclera Non Icteric Neck: Supple, Good ROM, No Lymph Node Enlargement Lungs: Clear to auscultation Cardiovascular: Irregular Rhythm, Normal S1, Normal S2, No Murmurs, No Rubs, No Gallops Vascular: No Carotid Bruits, Normal Femoral Pulses, Normal Radial Pulses, Normal Dorsalis Pedal Pulse, Normal Posterior Tibial Pulses Abdomen: Bowel Sounds Present, Soft, Non Tender, No HSM, No Organomegaly Extremities: No Cyanosis, No Clubbing, No edema Neurological: No Focal Motor or Sensory Deficit 11/21/19 09:10: WBC 13.5 H, RBC 4.65, Hgb 13.8, Hct 43.3, MCV 93.1, MCH 29.7, MCHC 31.9 L, Plt Count 360, MPV 10.3, Immature Gran % (Auto) 0.900, Neut % (Auto) 77.1 H, Lymph % (Auto) 11.4 L, [place] % (Auto) 9.5, Eos % (Auto) 0.7, Baso % (Auto) 0.4, Absolute Neuts (auto) 10.4 H, Nucleated RBC % 0 11/21/19 09:10: Sodium 135 L, Potassium 5.7 H, Chloride 105, Carbon Dioxide 25.0, Anion Gap 5, BUN 50 H, Creatinine 1.67 H, Est GFR (MDRD) Af Amer 53 L, Est GFR (MDRD) Non-Af 44 L, BUN/Creatinine Ratio 29.9 H, Glucose 131 H, Calcium 9.5, Magnesium 2.4, Troponin I < 0.015 11/21/19 09:10: B-Natriuretic Peptide 951.4 H 11/22/19 05:40: Sodium 138, Potassium 4.4, Chloride 109 H, Carbon Dioxide 21.0, Anion Gap 8, BUN 33 H, Creatinine 1.05, Est GFR (MDRD) Af Amer 90, Est GFR (MDRD) Non-Af 74, BUN/Creatinine Ratio 31.4 H, Glucose 130 H, Calcium 8.8 11/22/19 05:40: WBC 9.0, RBC 4.04 L, Hgb 12.0 L, Hct 37.4 L, MCV 92.6, MCH 29.7, MCHC 32.1, Plt Count 234, MPV 10.4, Immature Gran % (Auto) 0.400, Neut % (Auto) 73.5 H, Lymph % (Auto) 14.8 L, [place] % (Auto) 9.6, Eos % (Auto) 1.1, Baso % (Auto) 0.6, Absolute Neuts (auto) 6.6, Nucleated RBC % 0 Rhythm: EKG: ECHO: Stress Test: Cardiac Cath: PCI: CT Surgery: Holter monitor: EPS: PPM: CXR: Chest CT Scan: Medical Necessity - Tobacco Use Smoking Status: Former smoker Tobacco Use: Pipe Assessment/Plan 1. Cardiomyopathy: The patient has what appears to be a cardiomyopathy out of proportion to his degree of coronary artery disease. Although he did have a angioplasty and drug-eluting stenting to his LAD in September 2019, his LV function was to be 25% with severe LV dysfunction. It is possible the patient may have had asymptomatic intermittent atrial fibrillation to explain his cardiomyopathy, or previous viral illness that was of low intensity. He denies any inciting factors such as flu or viral illness. The patient does drink about 1 bottle of wine per week, but never used to drink heavily during his adult years. The patient is now found to be a newly discovered atrial fibrillation with rapid ventricular response. I believe the patient would benefit from cardiac resynchronization and increasing diastolic filling time. Patient was initiated on IV amiodarone yesterday with 2 boluses, and would recommend continuing 1 more day of IV amiodarone loading. Starting tomorrow, 11/23/2019, I would recommend switching him over to amiodarone 200 mg p.o. daily. In addition I recommend we increase his Coreg to 12.5 mg p.o. twice daily to mays better rate control and afterload reduction. Patient underwent a 2D echo with Doppler yesterday with the following results: Moderate concentric left ventricular hypertrophy. Moderately dilated left ventricle. The estimated ejection fraction is 25 %. Unable to estimate RV systolic pressure due to insufficient tricuspid regurgitant envelope. Small pericardial effusion. Circumferential effusion. There are no echocardiographic indications of cardiac tamponade. Compared to echo report dated 10/11/2019, LV function has remained about the same, patient now appears to be in atrial fibrillation, and now appears to have a small circumferential pericardial effusion without evidence of our right atrial or right ventricular collapse. I reviewed the patient's catheterization angioplasty film from September 2019, and could not see any coronary rupture that may explain the patient's pericardial effusion. The patient's pericardial effusion has the appearance more of a serous fluid rather than gelatinous blood indicating he is most likely not from a subclinical rupture. His at bedtime CRP was markedly elevated at 83, indicating an inflammatory process which may be contributing to his pericardial effusion. At this point I would recommend starting the patient on indomethacin 50 mg p.o. twice daily. Would not recommend colchicine at this time as this may induce diarrhea. Given his pericardial effusion this complicates the use of anticoagulation therapy for his atrial fibrillation and LV dysfunction. We will continue baby aspirin and Plavix for his recent coronary intervention. Anticoagulation may exacerbate his pericardial effusion or to get into a hemopericardium. Would recommend repeat echocardiogram in 1 month's time or sooner if the patient's condition deteriorates. After 1 month of amiodarone loading, I would recommend elective DC cardioversion. Assuming his cardioversion is successful and remains durable, I would recommend he resume cardiac rehab for period of 3 months time. We will then repeat his echocardiogram to determine if he is garnered any benefit from cardiac revascularization, medical therapy, cardiac resynchronization, and cardiac rehab. If his LV function has not improved past 35%, the patient may require a AICD for primary prevention. In the meantime we will continue his Coreg, Entresto, Lasix 40 mg p.o. daily. Again we will increase his Coreg to 12.5 mg p.o. twice daily in order to improve his heart rate trolled. The patient may require Cardizem for heart rate control as well. Unfortunately at this time, we were unable to do a transesophageal echocardiogram due to the COVID-19 pandemic restrictions. Therefore, DC cardioversion without anticoagulation is somewhat problematic. 2. Coronary artery disease: The patient has no anginal symptoms or dynamic EKG changes. No indication for repeat catheterization at this time. Continue baby aspirin and Plavix. 3. Hyperlipidemia: Continue statin based medications. Continue Lipitor. 4. Discussed with Dr. Last. Thank you very much for the opportunity to participate in the cardiac care of your patient. Continue telemetry and admission for 1 more day. Inpatient E&M: 102[address] [facility] Hosp L2
[2019-11-22] MEDS: Carvedilol 12.5 MG Tablet PO ×2 (08:51→17:45)
[2019-11-22] MEDS: Amiodarone 360 MG in Dextrose 5% Viaflo Bag 192.8 ML 16.7 MG CONT INF ×2 (08:51→21:00)
[2019-11-22] MEDS: Clopidogrel Bisulfate 75 MG Tablet PO (08:52)
[2019-11-22] MEDS: SACUBITRIL/VALSARTAN 49-51 MG TABLET 1 EACH PO ×2 (08:52→21:25)
--- NOTE | 2019-11-22 10:00 | EKG12_ITS ---
Test Reason : AM EKG Blood Pressure : / mmHG Vent. Rate : 113 BPM Atrial Rate : 113 BPM P-R Int : 000 ms QRS Dur : 108 ms QT Int : 304 ms P-R-T Axes : 000 -33 105 degrees QTc Int : 416 ms Atrial Fibrillation Left axis deviation Low voltage QRS Septal infarct , age undetermined Abnormal ECG Confirmed by JENNA SIMENTAL, WES ([id number]), video news editor MAIRA VILLANUEVA ([id number]) on 11/28/2019 10:44:43 AM Referred By: MERYL Confirmed By:WES WEST MD
--- NOTE | 2019-11-22 10:40 | CASEMGMT ---
RN CM Face to Face with patient for initial transition planning/care coordination assessment. RN CM introduced self and role at [facility]. Patient sitting in chair, alert and oriented. Patient willing to participate in assessment and is able to answer all questions appropriately. Care providers, pharmacy, and demographics verified. Patient wishes to discharge home, denies need for home health at this time. Patient states he has no further needs or concerns at this time. CM to follow for discharge planning needs that may arise. PCP: Carmen Specialists: none Preferred Pharmacy: [facility] Insurance: [employer]alia HERNANDEZ Prescription Benefit: [employer] Living Will/HPOA: yes, Lizbeth Fine LNOK: Living Arrangements: Patient lives with whom he cares for. They live in 1 story home with no steps to enter. Patient states he is independent at home Transportation: self/family DME/HHC: Patient denies any DME or HHC for himself. Disposition Plan: Patient to discharge home with family support and follow-up plans in place. Mayra CARMICHAELN, RN, CM
--- NOTE | 2019-11-22 13:22 | PN_ITS ---
Patient Problems: Active and Suspected Problems (Last Reviewed 11/06/19 @ 15:[address] Suzi Bellamy MD) Atrial fibrillation with RVR (Acute) Hypotension (Acute) Hyperkalemia (Acute) Subjective: Patient seen and examined. Denies chest pain, shortness of breath. HR remains elevated. Meds adjusted per cardiology. - Physical Exam Vitals/I&O's: Vital Signs Temp Pulse Resp BP Pulse Ox 97.9 F 98 23 H 103/71 98 11/22/19 08:00 11/22/19 12:00 11/22/19 12:00 11/22/19 12:00 11/22/19 12:00 Oxygen Flow Rate (L/min) 2 Oxygen Delivery Method Room Air Weight: 228 lb 9.91 oz Body Mass Index (BMI) 33.7 Intake and Output for Last 24 Hours 11/20/19 11/21/19 11/22/19 23:59 23:59 23:59 Intake Total 1696.40 / 1696.40 1857.21 / 1857.21 Output Total 1025 / 1025 500 / 500 Balance 671.40 / 671.40 1357.21 / 1357.21 General: Alert, Oriented x3, Cooperative HEENT: Atraumatic, PERRLA, EOMI, Normocephalic Neck: Supple, No JVD, Negative Carotid Bruits Lungs: Clear to auscultation, Normal air movement Cardiovascular: Tachycardic, - - A.fib Abdomen: Bowel Sounds Present, Soft, Non Tender, Non-Distended Extremities: No clubbing, No cyanosis, No edema, Capillary Refill Less than 3 Seconds Skin: No rashes, No breakdown Musculoskeletal: No Tenderness to Palpation of Joints or Extremities Neurological: Cranial nerves II-XII grossly intact, Neuro grossly intact Psych/Mental Status: Normal Affect, Appropriate Laboratory Results 11/21/19 09:10: C-React Prot High Sens 82.10 H 11/22/19 05:40: Sodium 138, Potassium 4.4, Chloride 109 H, Carbon Dioxide 21.0, Anion Gap 8, BUN 33 H, Creatinine 1.05, Estim Creat Clear Calc 66.40, Est GFR (MDRD) Af Amer 90, Est GFR (MDRD) Non-Af 74, BUN/Creatinine Ratio 31.4 H, Glucose 130 H, Calcium 8.8 11/22/19 05:40: WBC 9.0, RBC 4.04 L, Hgb 12.0 L, Hct 37.4 L, MCV 92.6, MCH 29.7, MCHC 32.1, RDW Std Deviation 43.6, RDW Coeff of [place] 12.9, Plt Count 234, MPV 10.4, Immature Gran % (Auto) 0.400, Neut % (Auto) 73.5 H, Lymph % (Auto) 14.8 L, [place] % (Auto) 9.6, Eos % (Auto) 1.1, Baso % (Auto) 0.6, Absolute Neuts (auto) 6.6, Absolute Lymphs (auto) 1.33, Nucleated RBC % 0 11/22/19 05:40: ESR 66 H Current Medications Acetaminophen (Tylenol) 650 mg PO Q6H PRN PRN PRN Reason: Pain Score 1-10/Temp > 100.7 F Atorvastatin Calcium (Lipitor) 40 mg PO QHS [facility] Last Admin: 11/21/19 21:35 Dose: 40 mg Documented by: Carvedilol (Coreg) 12.5 mg PO BID [facility] Last Admin: 11/22/19 08:51 Dose: 12.5 mg Documented by: Clopidogrel Bisulfate (Plavix) 75 mg PO DAILY [facility] Last Admin: 11/22/19 08:52 Dose: 75 mg Documented by: Sodium Chloride () 250 mls @ 15 mls/hr IV .[id number] PRN PRN Reason: Saline Flush Sodium Chloride () 250 mls @ 15 mls/hr IV .[id number] PRN PRN Reason: Additional IVPB Infusion [facility] Ondansetron HCl (Zofran) 4 mg IV Q8H PRN PRN PRN Reason: NAUSEA/VOMITING Sacubitril/Valsartan (Entresto 49 Mg-51 Mg Tablet) 1 each PO BID [facility] Last Admin: 11/22/19 08:52 Dose: 1 each Documented by: Sodium Chloride () 10 - 40 ml IV UD PRN PRN Reason: SALINE FLUSH Medical Necessity - Tobacco Use Smoking Status: Former smoker Tobacco Use: Pipe Assessment/Plan All Active Problems (Last Reviewed 11/06/19 @ 15:[address] Suzi Bellamy MD) Atrial fibrillation with RVR (Acute) Hypotension (Acute) Hyperkalemia (Acute) Acute respiratory failure with hypoxia (Acute) 1. New onset atrial fibrillation with RVR-on amiodarone, carvedilol. Cardiology following. Echocardiogram 11/21/2019 demonstrated an EF of 25%, small pericardial effusion. Due to effusion, Eliquis discontinued. Continue aspirin, Plavix. Continue to monitor rate overnight. 2. CAD with ischemic cardiomyopathy-recent PCI of mid LAD with LUCIA 10/12/2019. Continue aspirin, Plavix, statin, carvedilol, Entresto, Lasix. 3. Acute kidney injury-resolved. 4. Former smoker-encouraged continued cessation. 5. Obesity-encouraged diet and lifestyle modifications. DVT prophylaxis- SCDs, eliquis discontinued This patient was seen by MILANA Ye under the supervision of Dr. Dacosta.
[2019-11-22] MEDS: Indomethacin 25 MG Capsule 50 MG PO (17:45)
[2019-11-22] MEDS: Atorvastatin Calcium 40 MG Tablet PO (21:20)
[2019-11-23] VITALS (21 sets, daily range): BP systolic 76–131; BP diastolic 52–91; PULSE 80–109; RESP 16–26; TEMP 36.3–36.7; O2SAT 94–100
[2019-11-23] MEDS: 0.9% Saline Lock 10 ML Syringe IV (07:03)
[2019-11-23] MEDS: SACUBITRIL/VALSARTAN 49-51 MG TABLET 1 EACH PO ×2 (09:11→22:10)
[2019-11-23] MEDS: Indomethacin 25 MG Capsule 50 MG PO ×2 (09:11→17:27)
[2019-11-23] MEDS: Carvedilol 12.5 MG Tablet PO ×2 (09:11→22:10)
[2019-11-23] MEDS: Amiodarone 200 MG Tablet PO ×2 (09:11→22:10)
[2019-11-23] MEDS: Clopidogrel Bisulfate 75 MG Tablet PO (09:12)
--- NOTE | 2019-11-23 09:23 | PCM.PN.CARD ---
Subjectve: Patient continues to slowly improve. Much improved heart rate control yesterday with increasing dose of Coreg. IV amiodarone infusing. Telemetry shows atrial fibrillation with controlled ventricular response. No 24-hour events. Objective: Vital Signs Temp Pulse Resp BP Pulse Ox 97.6 F L 103 H 21 H 89/61 L 98 11/23/19 08:01 11/23/19 09:00 11/23/19 09:00 11/23/19 09:00 11/23/19 09:00 Oxygen Flow Rate (L/min) 2 Oxygen Delivery Method Room Air Weight: 228 lb 9.91 oz Body Mass Index (BMI) 33.7 Intake and Output for Last 24 Hours 11/21/19 11/22/19 11/23/19 23:59 23:59 23:59 Intake Total 1696.40 / 1696.40 2138.00 / 2154.70 366.60 / 366.60 Output Total 1025 / 1025 550 / 550 550 / 550 Balance 671.40 / 671.40 1588.00 / 1604.70 -183.40 / -183.40 General: Awake, Alert, Oriented x 3 HEENT: PERRL, EOMI, Sclera Non Icteric Neck: Supple, Good ROM, No Lymph Node Enlargement Lungs: Clear to auscultation Cardiovascular: Irregular Rhythm, Normal S1, Normal S2, No Murmurs, No Rubs, No Gallops Vascular: No Carotid Bruits, Normal Femoral Pulses, Normal Radial Pulses, Normal Dorsalis Pedal Pulse, Normal Posterior Tibial Pulses Abdomen: Bowel Sounds Present, Soft, Non Tender, No HSM, No Organomegaly Extremities: No Cyanosis, No Clubbing, No edema Neurological: No Focal Motor or Sensory Deficit Rhythm: EKG: ECHO: Stress Test: Cardiac Cath: PCI: CT Surgery: Holter monitor: EPS: PPM: CXR: Chest CT Scan: Medical Necessity - Tobacco Use Smoking Status: Former smoker Tobacco Use: Pipe Assessment/Plan 1. Cardiomyopathy: The patient has what appears to be a cardiomyopathy out of proportion to his degree of coronary artery disease. Although he did have a angioplasty and drug-eluting stenting to his LAD in September 2019, his LV function was to be 25% with severe LV dysfunction. It is possible the patient may have had asymptomatic intermittent atrial fibrillation to explain his cardiomyopathy, or previous viral illness that was of low intensity. He denies any inciting factors such as flu or viral illness. The patient does drink about 1 bottle of wine per week, but never used to drink heavily during his adult years. The patient is now found to be a newly discovered atrial fibrillation with rapid ventricular response. I believe the patient would benefit from cardiac resynchronization and increasing diastolic filling time. At this point we will switch him from IV amiodarone to p.o. amiodarone to 1 mg p.o. twice daily for 5 days followed by 200 mg p.o. daily. He will continue his Coreg 12.5 mg p.o. twice daily at this time. Would not increase his Coreg at this time. Patient underwent a 2D echo with Doppler 11/21/2019 with the following results: Moderate concentric left ventricular hypertrophy. Moderately dilated left ventricle. The estimated ejection fraction is 25 %. Unable to estimate RV systolic pressure due to insufficient tricuspid regurgitant envelope. Small pericardial effusion. Circumferential effusion. There are no echocardiographic indications of cardiac tamponade. Compared to echo report dated 10/11/2019, LV function has remained about the same, patient now appears to be in atrial fibrillation, and now appears to have a small circumferential pericardial effusion without evidence of our right atrial or right ventricular collapse. I reviewed the patient's catheterization angioplasty film from September 2019, and could not see any coronary rupture that may explain the patient's pericardial effusion. The patient's pericardial effusion has the appearance more of a serous fluid rather than gelatinous blood indicating he is most likely not from a subclinical rupture. His at bedtime CRP was markedly elevated at 83, indicating an inflammatory process which may be contributing to his pericardial effusion. At this point I would recommend starting the patient on indomethacin 50 mg p.o. twice daily for period of 2 weeks. Would not recommend colchicine at this time as this may induce diarrhea. Given his pericardial effusion this complicates the use of anticoagulation therapy for his atrial fibrillation and LV dysfunction. We will continue baby aspirin and Plavix for his recent coronary intervention. Anticoagulation may exacerbate his pericardial effusion or to get into a hemopericardium. Would recommend repeat echocardiogram in 1 month's time or sooner if the patient's condition deteriorates. After 1 month of amiodarone loading, I would recommend elective DC cardioversion. Assuming his cardioversion is successful and remains durable, I would recommend he resume cardiac rehab for period of 3 months time. We will then repeat his echocardiogram to determine if he is garnered any benefit from cardiac revascularization, medical therapy, cardiac resynchronization, and cardiac rehab. If his LV function has not improved past 35%, the patient may require a AICD for primary prevention. In the meantime we will continue his Coreg, Entresto, Lasix 40 mg p.o. daily. Again we will increase his Coreg to 12.5 mg p.o. twice daily in order to improve his heart rate trolled. The patient may require Cardizem for heart rate control as well. Unfortunately at this time, we were unable to do a transesophageal echocardiogram due to the COVID-19 pandemic restrictions. Therefore, DC cardioversion without anticoagulation is somewhat problematic. 2. Coronary artery disease: The patient has no anginal symptoms or dynamic EKG changes. No indication for repeat catheterization at this time. Continue baby aspirin and Plavix. 3. Hyperlipidemia: Continue statin based medications. Continue Lipitor. 4. Recommend continuing patient in the hospital 1 more day to make sure that he is able to tolerate p.o. amiodarone and his heart rate is well controlled. She may require the addition of calcium channel arielle therapy should his heart rate not be controlled with amiodarone and beta-arielle. Inpatient E&M: 08779 [facility] Hosp L2
--- NOTE | 2019-11-23 11:17 | NURSING ---
Per Dr Duffy, finish out bag of amiodarone that is currently hanging. Bag still had fluid in it and was not empty yet at 0900. Amiodarone drip stopped at 1116.
--- NOTE | 2019-11-23 13:01 | PCM.PROGNOTE ---
<Lauryn Garay - Last Filed: 11/23/19 13:04> Patient Problems: Active and Suspected Problems (Last Reviewed 11/06/19 @ 15:[address] Suzi Bellamy MD) Atrial fibrillation with RVR (Acute) Hypotension (Acute) Hyperkalemia (Acute) Subjective: Patient seen and examined. Blood pressure noted to be low this morning and patient reports lightheadedness. Denies shortness of breath, chest pain. Heart rate improved. - Physical Exam Vitals/I&O's: Vital Signs Temp Pulse Resp BP Pulse Ox 97.3 F L 88 18 96/58 L 97 11/23/19 12:00 11/23/19 12:59 11/23/19 12:00 11/23/19 12:59 11/23/19 12:59 Oxygen Flow Rate (L/min) 2 Oxygen Delivery Method Room Air Weight: 228 lb 9.91 oz Body Mass Index (BMI) 33.7 Intake and Output for Last 24 Hours 11/21/19 11/22/19 11/23/19 23:59 23:59 23:59 Intake Total 1696.40 / 1696.40 2138.00 / 2154.70 1776.60 / 1776.60 Output Total 1025 / 1025 550 / 550 650 / 650 Balance 671.40 / 671.40 1588.00 / 1604.70 1126.60 / 1126.60 General: Alert, Oriented x3, Cooperative HEENT: Atraumatic, PERRLA, EOMI, Normocephalic Neck: Supple, No JVD, Negative Carotid Bruits Lungs: Clear to auscultation, Normal air movement Cardiovascular: - - Atrial fibrillation, tachycardic Abdomen: Bowel Sounds Present, Soft, Non Tender, Non-Distended Extremities: No clubbing, No cyanosis, No edema, Capillary Refill Less than 3 Seconds Skin: No rashes, No breakdown Musculoskeletal: No Tenderness to Palpation of Joints or Extremities Neurological: Cranial nerves II-XII grossly intact, Neuro grossly intact Psych/Mental Status: Normal Affect, Appropriate Current Medications Acetaminophen (Tylenol) 650 mg PO Q6H PRN PRN PRN Reason: Pain Score 1-10/Temp > 100.7 F Amiodarone HCl (Cordarone) 200 mg PO BID KIM Last Admin: 11/23/19 09:11 Dose: 200 mg Documented by: Atorvastatin Calcium (Lipitor) 40 mg PO QHS [facility] Last Admin: 11/22/19 21:20 Dose: 40 mg Documented by: Carvedilol (Coreg) 12.5 mg PO BID [facility] Last Admin: 11/23/19 09:11 Dose: 12.5 mg Documented by: Clopidogrel Bisulfate (Plavix) 75 mg PO DAILY [facility] Last Admin: 11/23/19 09:12 Dose: 75 mg Documented by: Diltiazem HCl (Cardizem) 10 mg IV BOLUS Q4H PRN PRN Reason: Tachycardia Sodium Chloride () 250 mls @ 15 mls/hr IV .[id number] PRN PRN Reason: Saline Flush Sodium Chloride () 250 mls @ 15 mls/hr IV .[id number] PRN PRN Reason: Additional IVPB Infusion Amiodarone HCl 360 mg/ (Dextrose) 200 mls @ 16.667 mls/hr CONT INF .Q12H [facility] Last Infusion: 11/23/19 11:00 Dose: Infused Documented by[facility] Admin: 11/23/19 09:11 Dose: 50 mg Documented by: Ondansetron HCl (Zofran) 4 mg IV Q8H PRN PRN PRN Reason: NAUSEA/VOMITING Sacubitril/Valsartan (Entresto 49 Mg-51 Mg Tablet) 1 each PO BID [facility] Last Admin: 11/23/19 09:11 Dose: 1 each Documented by: Sodium Chloride () 10 - 40 ml IV UD PRN PRN Reason: SALINE FLUSH Last Admin: 11/23/19 07:03 Dose: 10 ml Documented by: Medical Necessity - Tobacco Use Smoking Status: Former smoker Tobacco Use: Pipe Assessment/Plan All Active Problems (Last Reviewed 11/06/19 @ 15:[address] Suzi Bellamy MD) Atrial fibrillation with RVR (Acute) Hypotension (Acute) Hyperkalemia (Acute) Acute respiratory failure with hypoxia (Acute) 1. New onset atrial fibrillation with RVR-on amiodarone, carvedilol. Cardiology following. Echocardiogram 11/21/2019 demonstrated an EF of 25%, small pericardial effusion. Due to effusion, Eliquis discontinued. Continue aspirin, Plavix. Initiated on oral amiodarone this morning. Monitor heart rate overnight. 2. CAD with ischemic cardiomyopathy-recent PCI of mid LAD with LUCIA 10/12/2019. Continue aspirin, Plavix, statin, carvedilol, Entresto, Lasix. 3. Acute kidney injury-resolved. 4. Former smoker-encouraged continued cessation. 5. Obesity-encouraged diet and lifestyle modifications. DVT prophylaxis- SCDs, eliquis discontinued This patient was seen by MILANA Ye under the supervision of Dr. Leung. <Annita Leung E - Last Filed: 11/23/19 13:18> - Physical Exam Vitals/I&O's: Vital Signs Temp Pulse Resp BP Pulse Ox 97.3 F L 88 18 96/58 L 97 11/23/19 12:00 11/23/19 12:59 11/23/19 12:00 11/23/19 12:59 11/23/19 12:59 Oxygen Flow Rate (L/min) 2 Oxygen Delivery Method Room Air Weight: 228 lb 9.91 oz Body Mass Index (BMI) 33.7 Intake and Output for Last 24 Hours 11/21/19 11/22/19 11/23/19 23:59 23:59 23:59 Intake Total 1696.40 / 1696.40 2138.00 / 2154.70 1776.60 / 1776.60 Output Total 1025 / 1025 550 / 550 650 / 650 Balance 671.40 / 671.40 1588.00 / 1604.70 1126.60 / 1126.60 Current Medications Acetaminophen (Tylenol) 650 mg PO Q6H PRN PRN PRN Reason: Pain Score 1-10/Temp > 100.7 F Amiodarone HCl (Cordarone) 200 mg PO BID [facility] Last Admin: 11/23/19 09:11 Dose: 200 mg Documented by: Atorvastatin Calcium (Lipitor) 40 mg PO QHS [facility] Last Admin: 11/22/19 21:20 Dose: 40 mg Documented by: Carvedilol (Coreg) 12.5 mg PO BID [facility] Last Admin: 11/23/19 09:11 Dose: 12.5 mg Documented by: Clopidogrel Bisulfate (Plavix) 75 mg PO DAILY [facility] Last Admin: 11/23/19 09:12 Dose: 75 mg Documented by: Diltiazem HCl (Cardizem) 10 mg IV BOLUS Q4H PRN PRN Reason: Tachycardia Sodium Chloride () 250 mls @ 15 mls/hr IV .[id number] PRN PRN Reason: Saline Flush Sodium Chloride () 250 mls @ 15 mls/hr IV .[id number] PRN PRN Reason: Additional IVPB Infusion Amiodarone HCl 360 mg/ (Dextrose) 200 mls @ 16.667 mls/hr CONT INF .Q12H [facility] Last Infusion: 11/23/19 11:00 Dose: Infused Documented by: Indomethacin (Indocin) 50 mg PO BIDCM [facility] Last Admin: 11/23/19 09:11 Dose: 50 mg Documented by: Ondansetron HCl (Zofran) 4 mg IV Q8H PRN PRN PRN Reason: NAUSEA/VOMITING Sacubitril/Valsartan (Entresto 49 Mg-51 Mg Tablet) 1 each PO BID [facility] Last Admin: 11/23/19 09:11 Dose: 1 each Documented by: Sodium Chloride () 10 - 40 ml IV UD PRN PRN Reason: SALINE FLUSH Last Admin: 11/23/19 07:03 Dose: 10 ml Documented by: Assessment/Plan Hospitalist note: I am seeing this patient in conjunction with Lauryn Garay. I independently seen and examined the patient. Progress note above, laboratory data and imaging studies reviewed and I concur with the above treatment plan. Today, patient's blood pressure was low and he was dizzy and lightheaded. He denied chest pain or shortness of breath. Heart rate has been around 100. Blood pressure was as low as 76/52, improved to 96/58. - Physical Exam General: Alert, Oriented x3, Cooperative, No apparent distress. HEENT: Atraumatic, PERRLA, EOMI. Neck: Supple, No JVD, Negative Carotid Bruits, Trachea Midline, Thyroid Normal. Lungs: Clear to auscultation, Normal air movement, No rhonchi, No wheeze, No rales. Cardiovascular: Irregular rate and rhythm, Normal S1, Normal S2, PMI Normal, tachycardia. Abdomen: Bowel Sounds Present, Soft, Non Tender, Non-Distended, No Hepato-splenomegaly. Extremities: No clubbing, No cyanosis, No edema Skin: No rashes, No breakdown Neurological: Cranial nerves are intact, neuro grossly intact Assessment and plan: #1 new onset A. fib with RVR: Patient is IV amiodarone drip, started on p.o. amiodarone today, and he is on Coreg. He has been hypotensive, dosage of his medication adjusted. 2D echocardiogram revealed moderate LVH, moderately dilated left ventricle, ejection fraction of 35%, small pericardial effusion. Cardiology on the case. Initially, patient was started on Eliquis which was discontinued because of the small pericardial effusion. Heart rate has been around 100. Plan to monitor, adjust medications as per cardiology. #2 CAD/ischemic cardiomyopathy: Status post recent PCI to mid LAD on Sep, 2019. Troponin was negative. Chest x-ray revealed cardiomegaly, no acute findings. Continue aspirin, Plavix, statins, Coreg, Entresto. #3 acute kidney injury: Secondary to dehydration, prerenal. Admission creatinine was 1.67, came down to 1.05 today, improved. #4 other chronic medical problems: Stable, continue current medications as above. This note was generated with meets dictation software. It may contain incorrect words, spelling, and punctuation that were not noted in checking the note before signing. Inpatient E&M: 04261 Subs Hosp L2
[2019-11-23] MEDS: Atorvastatin Calcium 40 MG Tablet PO (22:10)
[2019-11-24] VITALS (8 sets, daily range): BP systolic 77–111; BP diastolic 44–80; PULSE 60–128; RESP 16–18; TEMP 36.5–36.6; O2SAT 93–99
--- NOTE | 2019-11-24 02:02 | NURSING ---
Report given to Go FLORES who is assuming care of pt. at this time.
[2019-11-24 06:52] LABS: Anion Gap 6 (5-15); BUN 29 mg/dL (7-18); BUN/Creat Ratio 27.6 RATIO (10-20); Calcium,Total 8.5 mg/dL (8.5-10.1); Chloride 109 mmol/L (98-107); Creatinine, Serum 1.05 mg/dL (0.70-1.30); EST Glomerular Filtration Rate 74 mL/min (>60); Est Glom Filt Rate - Afr Amer 90 mL/min (>60); Glucose 117 mg/dL (74-106); Potassium 4.1 mmol/L (3.5-5.1); Sodium Level 138 mmol/L (136-145)
[2019-11-24] MEDS: Clopidogrel Bisulfate 75 MG Tablet PO (09:03)
[2019-11-24] MEDS: Indomethacin 25 MG Capsule 50 MG PO (09:03)
[2019-11-24] MEDS: Amiodarone 200 MG Tablet PO (09:03)
[2019-11-24] MEDS: SACUBITRIL/VALSARTAN 49-51 MG TABLET 1 EACH PO (09:03)
[2019-11-24] MEDS: dilTIAZem 25 MG/5 ML Vial 10 MG IV BOLUS (10:32)
[2019-11-24] MEDS: 0.9% Saline Lock 10 ML Syringe IV (10:33)
--- NOTE | 2019-11-24 11:08 | PCM.PN.CARD ---
Subjectve: Patient sitting in a chair this morning, complained of intermittent lightheadedness several hours after taking Coreg higher dose of 12.5 mg p.o. twice daily. Heart rate improved with Coreg therapy however still is not optimally controlled despite amiodarone loading, and high-dose Coreg. He denies any chest pain symptoms. Objective: Vital Signs Temp Pulse Resp BP Pulse Ox 97.9 F 128 H 16 111/80 99 11/24/19 08:45 11/24/19 08:45 11/24/19 08:45 11/24/19 08:45 11/24/19 08:45 Oxygen Flow Rate (L/min) 2 Oxygen Delivery Method Room Air Weight: 228 lb 9.91 oz Body Mass Index (BMI) 33.7 Intake and Output for Last 24 Hours 11/22/19 11/23/19 11/24/19 23:59 23:59 23:59 Intake Total 2138.00 / 2154.70 2756.60 / 2756.60 300 / 300 Output Total 550 / 550 1050 / 1050 Balance 1588.00 / 1604.70 1706.60 / 1706.60 300 / 300 General: Awake, Alert, Oriented x 3 HEENT: PERRL, EOMI, Sclera Non Icteric Neck: Supple, Good ROM, No Lymph Node Enlargement Lungs: Clear to auscultation Cardiovascular: Irregular Rhythm, Normal S1, Normal S2, No Murmurs, No Rubs, No Gallops Vascular: No Carotid Bruits, Normal Femoral Pulses, Normal Radial Pulses, Normal Dorsalis Pedal Pulse, Normal Posterior Tibial Pulses Abdomen: Bowel Sounds Present, Soft, Non Tender, No HSM, No Organomegaly Extremities: No Cyanosis, No Clubbing, No edema Neurological: No Focal Motor or Sensory Deficit 11/24/19 05:17: Sodium 138, Potassium 4.1, Chloride 109 H, Carbon Dioxide 23.0, Anion Gap 6, BUN 29 H, Creatinine 1.05, Est GFR (MDRD) Af Amer 90, Est GFR (MDRD) Non-Af 74, BUN/Creatinine Ratio 27.6 H, Glucose 117 H, Calcium 8.5 Rhythm: EKG: ECHO: Stress Test: Cardiac Cath: PCI: CT Surgery: Holter monitor: EPS: PPM: CXR: Chest CT Scan: Medical Necessity - Tobacco Use Smoking Status: Former smoker Tobacco Use: Pipe Assessment/Plan 1. Cardiomyopathy: The patient has what appears to be a cardiomyopathy out of proportion to his degree of coronary artery disease. Although he did have a angioplasty and drug-eluting stenting to his LAD in September 2019, his LV function was to be 25% with severe LV dysfunction. It is possible the patient may have had asymptomatic intermittent atrial fibrillation to explain his cardiomyopathy, or previous viral illness that was of low intensity. He denies any inciting factors such as flu or viral illness. The patient does drink about 1 bottle of wine per week, but never used to drink heavily during his adult years. The patient is now found to be a newly discovered atrial fibrillation with rapid ventricular response. I believe the patient would benefit from cardiac resynchronization and increasing diastolic filling time. At this point we will switch him from IV amiodarone to p.o. amiodarone to 200mg p.o. twice daily for 5 days followed by 200 mg p.o. daily. He will continue his Coreg 12.5 mg p.o. twice daily at this time. Would not increase his Coreg at this time. Patient underwent a 2D echo with Doppler 11/21/2019 with the following results: Moderate concentric left ventricular hypertrophy. Moderately dilated left ventricle. The estimated ejection fraction is 25 %. Unable to estimate RV systolic pressure due to insufficient tricuspid regurgitant envelope. Small pericardial effusion. Circumferential effusion. There are no echocardiographic indications of cardiac tamponade. Compared to echo report dated 10/11/2019, LV function has remained about the same, patient now appears to be in atrial fibrillation, and now appears to have a small circumferential pericardial effusion without evidence of our right atrial or right ventricular collapse. I reviewed the patient's catheterization angioplasty film from September 2019, and could not see any coronary rupture that may explain the patient's pericardial effusion. The patient's pericardial effusion has the appearance more of a serous fluid rather than gelatinous blood indicating he is most likely not from a subclinical rupture. His high sensitivity CRP was markedly elevated at 83, indicating an inflammatory process which may be contributing to his pericardial effusion. At this point I would recommend starting the patient on indomethacin 50 mg p.o. twice daily for period of 2 weeks. Would not recommend colchicine at this time as this may induce diarrhea. Given his pericardial effusion this complicates the use of anticoagulation therapy for his atrial fibrillation and LV dysfunction. We will continue baby aspirin and Plavix for his recent coronary intervention. Anticoagulation may exacerbate his pericardial effusion or to get into a hemopericardium. Would recommend repeat echocardiogram in 1 month's time or sooner if the patient's condition deteriorates. After 1 month of amiodarone loading, I would recommend elective DC cardioversion. Assuming his cardioversion is successful and remains durable, I would recommend he resume cardiac rehab for period of 3 months time. We will then repeat his echocardiogram to determine if he is garnered any benefit from cardiac revascularization, medical therapy, cardiac resynchronization, and cardiac rehab. If his LV function has not improved past 35%, the patient may require a AICD for primary prevention. In the meantime we will continue his Coreg, Entresto, Lasix 40 mg p.o. daily. As the patient was symptomatic from the higher dose of Coreg, I recommend decreasing it to 6.25 mg p.o. twice daily, and try IV Cardizem 10 mg x 1 now to determine if he his heart rate improves at all with the addition of Cardizem therapy. If his heart rate drops below 100, I would recommend starting him on short acting Cardizem 30 mg every 8 hours in addition to his Coreg and amiodarone. Unfortunately at this time, we were unable to do a transesophageal echocardiogram due to the COVID-19 pandemic restrictions. Therefore, DC cardioversion without anticoagulation is somewhat problematic. 2. Coronary artery disease: The patient has no anginal symptoms or dynamic EKG changes. No indication for repeat catheterization at this time. Continue baby aspirin and Plavix. 3. Hyperlipidemia: Continue statin based medications. Continue Lipitor. 4. Recommend continuing patient in the hospital 1 more day to make sure that he is able to tolerate p.o. amiodarone and his heart rate is well controlled. Discussed with OPERATING SYSTEM PROGRAMMER. Inpatient E&M: 39690 Subs Hosp L2
--- NOTE | 2019-11-24 11:39 | PCM.DC ---
- Discharge Diagnoses Current Active Problems: Current Active and Chronic Problems (Last Reviewed 11/06/19 @ 15:[address] Suzi Bellamy MD) Atrial fibrillation with RVR (Acute) Hypotension (Acute) Hyperkalemia (Acute) Ischemic cardiomyopathy (Chronic) You will use the following diet at home:: Cardiac Discharge Activity: Return to Normal Activity Call your doctor if you observe: Shortness of breath, Dizziness, Fainting spells, Chest pain Allergies/Adverse Reactions: Allergies No Known Allergies Allergy (Verified 11/06/19 14:19) Medications to take at Discharge Atorvastatin Calcium [Lipitor] 40 mg PO QHS #30 tab 10/13/19 Carvedilol [Coreg (Beta Jesus)] 6.25 mg PO BID #60 tab 10/13/19 Clopidogrel Bisulfate [Plavix] 75 mg PO DAILY #30 tab 10/13/19 Sacubitril/Valsartan 49-51 mg [Entresto 49 mg-51 mg Tablet] 1 ea PO BID #30 tab 10/13/19 coenzyme Q10 200 mg capsule 200 mg PO DAILY 11/06/19 garlic extract 600 mg tablet 600 mg PO DAILY 11/06/19 ginkgo biloba 120 mg tablet 120 mg PO DAILY 11/06/19 glucosamine 750 mg-msm 125 mg-chondroitin 600 mg-D3 1,000 unit tablet 1 tab PO DAILY 11/06/19 omega-3 fatty acids 500 mg capsule 500 mg PO DAILY 11/06/19 furosemide 40 mg tablet 40 mg PO DAILY #60 tab 11/19/19 Amiodarone HCl [Cordarone] 200 mg PO BID #60 tab 11/24/19 Aspirin E.C. [Ecotrin] 81 mg PO DAILY@0800 #30 tab 11/24/19 Diltiazem [Cardizem] 30 mg PO TID #90 tab 11/24/19 Indomethacin [Indocin] 50 mg PO BIDCM 12 Days #24 cap 11/24/19 Potassium Chloride [K-Tab ER] 20 meq PO DAILY #30 tablet.er 11/24/19 The following prescriptions were given: Diltiazem [Cardizem] 30 mg PO TID #90 tab Transmission Status: Pending to [id number] Amiodarone HCl [Cordarone] 200 mg PO BID #60 tab Transmission Status: Pending to [id number] Aspirin E.C. [Ecotrin] 81 mg PO DAILY@0800 #30 tab Transmission Status: Pending to [facility]pharmacy #[id number] Indomethacin [Indocin] 50 mg PO BIDCM 12 Days #24 cap Transmission Status: Pending to [facility]/pharmacy #[id number] Potassium Chloride [K-Tab ER] 20 meq PO DAILY #30 tablet.er Transmission Status: Pending to [facility]/pharmacy #[id number] Primary Care Physician: Alberta Morales MD [Primary Care Provider] - Please follow up with your Primary Care Physician in: 1 Week Test Results: Test results from this visit will be discussed in further detail at your follow-up appointment, if applicable. Please Follow Up With: Suzi Bellamy MD When: 1 Week Proposed Discharge Date: 11/24/19
--- NOTE | 2019-11-24 11:40 | DS.PCM_ITS ---
<Lauryn Garay - Last Filed: 11/24/19 12:06> Discharge Date and Diagnosis Date of Admission: 11/21/19 Date of Discharge: 11/24/19 - Primary Discharge Diagnosis Acute Problems: Active Problems (Last Reviewed 11/06/19 @ 15:[address] Suzi Bellamy MD) 1. New onset atrial fibrillation with RVR 2. CAD with ischemic cardiomyopathy-recent PCI of mid LAD with LUCIA 10/12/2019. 3. Acute kidney injury-resolved. 4. Former smoker 5. Obesity - Secondary Discharge Diagnosis Chronic Problems: Chronic Problems (Last Reviewed 11/06/19 @ 15:[address] Suzi Bellamy MD) Ischemic cardiomyopathy (Chronic) Coronary artery disease (Chronic) History of coronary artery stent placement (Chronic ~10/12/19) 2.75 x 16 mm Synergy MR LUCIA to mLAD 10/12/19 Tobacco abuse (Chronic) Obesity (BMI 30-39.9) (Chronic) Hospital Course and Treatment Imaging Results: Diagnostic Data Chest X-Ray 11/21/19 09:10 IMPRESSION: Marked cardiomegaly. The lungs are clear. Electronically Signed: Jose E Peraza, at 9:41 EDT , Service support , Dr. Duffy-Cardiology Operations: None Procedures: 2-D Echocardiogram Summary of Care Provided: The patient is a 69 year old M admitted 11/21/2019 due to atrial fibrillation with RVR. 1. New onset atrial fibrillation with RVR-Cardiology consulted during admission. Echocardiogram 11/21/2019 demonstrated an EF of 25%, small pericardial effusion. Due to small pericardial effusion, Eliquis discontinued. Continue aspirin, Plavix. Patient will continue amiodarone 200 mg twice daily for 5 days followed by amiodarone 200 mg daily. Patient did not tolerate increased dose of carvedilol and Coreg reduced to 6.25 mg twice daily which patient was on previously. Patient's heart rate remained elevated despite amiodarone and carvedilol and Cardizem bolus attempted with significant improvement in heart rate. Given patient responded well to Cardizem, will initiate Cardizem 30 mg every 8 hours. If heart rate remains less than 100 through this afternoon, plan on discharge home on current regimen. Patient follows with Dr. Bellamy, follow up with cardiology in 1 week. 2. CAD with ischemic cardiomyopathy-recent PCI of mid LAD with LUCIA 10/12/2019. Continue aspirin, Plavix, statin, carvedilol, Entresto, Lasix. 3. Acute kidney injury-resolved. 4. Former smoker-encouraged continued cessation. 5. Obesity-encouraged diet and lifestyle modifications. General: Alert, Oriented x3, Cooperative HEENT: Atraumatic, PERRLA, EOMI, Normocephalic Neck: Supple, No JVD, Negative Carotid Bruits Lungs: Clear to auscultation, Normal air movement Cardiovascular: - - Atrial fibrillation, tachycardic Abdomen: Bowel Sounds Present, Soft, Non Tender, Non-Distended Extremities: No clubbing, No cyanosis, No edema, Capillary Refill Less than 3 Seconds Skin: No rashes, No breakdown Musculoskeletal: No Tenderness to Palpation of Joints or Extremities Neurological: Cranial nerves II-XII grossly intact, Neuro grossly intact Psych/Mental Status: Normal Affect, Appropriate Patient seen and examined prior to discharge. Physical assessment as noted above. Patient is stable for discharge with follow up recommendations as noted above. This patient was seen by MILANA Ye under the supervision of Dr. Leung. - Physical Exam Vitals/I&O's: Vital Signs Temp Pulse Resp BP Pulse Ox 97.9 F 128 H 16 111/80 99 11/24/19 08:45 11/24/19 08:45 11/24/19 08:45 11/24/19 08:45 11/24/19 08:45 Oxygen Flow Rate (L/min) 2 Oxygen Delivery Method Room Air Weight: 228 lb 9.91 oz Body Mass Index (BMI) 33.7 Intake and Output for Last 24 Hours 11/22/19 11/23/19 11/24/19 23:59 23:59 23:59 Intake Total 2138.00 / 2154.70 2756.60 / 2756.60 300 / 300 Output Total 550 / 550 1050 / 1050 Balance 1588.00 / 1604.70 1706.60 / 1706.60 300 / 300 Laboratory Results 11/24/19 05:17: Sodium 138, Potassium 4.1, Chloride 109 H, Carbon Dioxide 23.0, Anion Gap 6, BUN 29 H, Creatinine 1.05, Estim Creat Clear Calc 66.40, Est GFR (MDRD) Af Amer 90, Est GFR (MDRD) Non-Af 74, BUN/Creatinine Ratio 27.6 H, Glucose 117 H, Calcium 8.5 Current Medications Acetaminophen (Tylenol) 650 mg PO Q6H PRN PRN PRN Reason: Pain Score 1-10/Temp > 100.7 F Amiodarone HCl (Cordarone) 200 mg PO BID [facility] Last Admin: 11/24/19 09:03 Dose: 200 mg Documented by: Atorvastatin Calcium (Lipitor) 40 mg PO QHS [facility] Last Admin: 11/23/19 22:10 Dose: 40 mg Documented by: Carvedilol (Coreg) 6.25 mg PO BID [facility] Clopidogrel Bisulfate (Plavix) 75 mg PO DAILY [facility] Last Admin: 11/24/19 09:03 Dose: 75 mg Documented by: Diltiazem HCl (Cardizem) 10 mg IV BOLUS Q4H PRN PRN Reason: Tachycardia Sodium Chloride () 250 mls @ 15 mls/hr IV .[id number] PRN PRN Reason: Saline Flush Sodium Chloride () 250 mls @ 15 mls/hr IV .[id number] PRN PRN Reason: Additional IVPB [facility] Last Admin: 11/24/19 09:03 Dose: 50 mg Documented by: Ondansetron HCl (Zofran) 4 mg IV Q8H PRN PRN PRN Reason: NAUSEA/VOMITING Sacubitril/Valsartan (Entresto 49 Mg-51 Mg Tablet) 1 each PO BID [facility] Last Admin: 11/24/19 09:03 Dose: 1 each Documented by: Sodium Chloride () 10 - 40 ml IV UD PRN PRN Reason: SALINE FLUSH Last Admin: 11/24/19 10:33 Dose: 10 ml Documented by: Discharge Diet: Low fat/ Low Cholesterol, 8 Cup Fluid Restriciton, 2000 mg Sodium Diet Discharge Activity: Return to Normal Activity Call your doctor if you observe: Shortness of breath, Dizziness, Fainting spells, Chest pain Home Medications: Medications to take at Discharge Atorvastatin Calcium [Lipitor] 40 mg PO QHS #30 tab 05/23/20 Carvedilol [Coreg (Beta Jesus)] 6.25 mg PO BID #60 tab 10/13/19 Clopidogrel Bisulfate [Plavix] 75 mg PO DAILY #30 tab 10/13/19 Sacubitril/Valsartan 49-51 mg [Entresto 49 mg-51 mg Tablet] 1 ea PO BID #30 tab 10/13/19 coenzyme Q10 200 mg capsule 200 mg PO DAILY 11/06/19 garlic extract 600 mg tablet 600 mg PO DAILY 11/06/19 glucosamine 750 mg-msm 125 mg-chondroitin 600 mg-D3 1,000 unit tablet 1 tab PO DAILY 11/06/19 omega-3 fatty acids 500 mg capsule 500 mg PO DAILY 11/06/19 furosemide 40 mg tablet 40 mg PO DAILY #60 tab 11/19/19 Amiodarone HCl [Cordarone] 200 mg PO BID #60 tab 11/24/19 Aspirin E.C. [Ecotrin] 81 mg PO DAILY@0800 #30 tab 11/24/19 Diltiazem [Cardizem] 30 mg PO TID #90 tab 11/24/19 Indomethacin [Indocin] 50 mg PO BIDCM 12 Days #24 cap 11/24/19 Potassium Chloride [K-Tab ER] 20 meq PO DAILY #30 tablet.er 11/24/19 Following Prescrptions Were Given to Patient: Diltiazem [Cardizem] 30 mg PO TID #90 tab Transmission Status: Received by [id number] Amiodarone HCl [Cordarone] 200 mg PO BID #60 tab Transmission Status: Received by [id number] Aspirin E.C. [Ecotrin] 81 mg PO DAILY@0800 #30 tab Transmission Status: Received by [id number] Indomethacin [Indocin] 50 mg PO BIDCM 12 Days #24 cap Transmission Status: Received by [id number] Potassium Chloride [K-Tab ER] 20 meq PO DAILY #30 tablet.er Transmission Status: Received by [id number] Primary Care Physician: Alberta Morales MD [Primary Care Provider] - Please follow up with your Primary Care Physician in: 1 Week Please Follow Up With: Suzi Bellamy MD When: 1 Week Disposition: Home Minutes spent on discharge:: 35 Patient Condition:: Stable Medical Necessity - Tobacco Use Smoking Status: Former smoker Tobacco Use: Pipe Meaningful Use Info Meaningful Use Diagnoses (Choose all that apply): None applicable <Annita Leung - Last Filed: 11/25/19 10:07> Discharge Date and Diagnosis - Secondary Discharge Diagnosis Chronic Problems: Chronic Problems (Last Reviewed 11/06/19 @ 15:[address] Suzi Bellamy MD) Ischemic cardiomyopathy (Chronic) Coronary artery disease (Chronic) History of coronary artery stent placement (Chronic ~10/12/19) 2.75 x 16 mm Synergy MR LUCIA to mLAD 10/12/19 Tobacco abuse (Chronic) Obesity (BMI 30-39.9) (Chronic) Hospital Course and Treatment Summary of Care Provided: Hospitalist note: Discharge summary above reviewed and I concur with above discharge treatment plan. Patient presented to the emergency room because of palpitation, found to have new onset A. fib with RVR. He was treated with IV amiodarone and IV Cardizem for rate control. EKG revealed A. fib with RVR without evidence of acute ischemic changes. Troponin was negative. 2D echocardiogram revealed moderate LVH, ejection fraction of 25%, small pericardial effusion without evidence of cardiac tamponade. Cardiology consulted and recommended to keep patient on IV amiodarone and was started on Eliquis. Eliquis was discontinued later because patient was found to have small pericardial effusion. He was found to have acute kidney injury which was treated with IV fluids and h his kidney function returned back to normal. Patient had episodes of hypotension while on Coreg and amiodarone. Doses of his medications adjusted and he was started on Cardizem because his heart rate was not well controlled. Heart rate became better with Coreg, Cardizem and amiodarone. Patient discharged home in a stable medical condition, discharged on Coreg 6.25 mg p.o. twice daily, Cardizem 30 mg p.o. 3 times daily and amiodarone 200 mg p.o. twice daily, no anticoagulation prescribed according to cardiology recommendations, continued other previous home medications, recommended follow-up with PCP in 1 week and follow-up with cardiology in 1 week as well. - Physical Exam General: Alert, Oriented x3, Cooperative, No apparent distress. HEENT: Atraumatic, PERRLA, EOMI. Neck: Supple, No JVD, Negative Carotid Bruits, Trachea Midline, Thyroid Normal. Lungs: Clear to auscultation, Normal air movement, No rhonchi, No wheeze, No rales. Cardiovascular: Irregular rate and rhythm, Normal S1, Normal S2, PMI Normal. Abdomen: Bowel Sounds Present, Soft, Non Tender, Non-Distended, No Hepato- splenomegaly. Extremities: No clubbing, No cyanosis, No edema Skin: No rashes, No breakdown Neurological: Cranial nerves are intact, neuro grossly intact. This note was generated with [employer] dictation software. It may contain incorrect words, spelling, and punctuation that were not noted in checking the note before signing. - Physical Exam Vitals/I&O's: Vital Signs Temp Pulse Resp BP Pulse Ox 97.9 F 128 H 16 111/80 99 11/24/19 08:45 11/24/19 08:45 11/24/19 08:45 11/24/19 08:45 11/24/19 08:45 Oxygen Flow Rate (L/min) 2 Oxygen Delivery Method Room Air Weight: 228 lb 9.91 oz Body Mass Index (BMI) 33.7 Intake and Output for Last 24 Hours 11/22/19 11/23/19 11/24/19 23:59 23:59 23:59 Intake Total 2138.00 / 2154.70 2756.60 / 2756.60 300 / 300 Output Total 550 / 550 1050 / 1050 Balance 1588.00 / 1604.70 1706.60 / 1706.60 300 / 300 Laboratory Results 11/24/19 05:17: Sodium 138, Potassium 4.1, Chloride 109 H, Carbon Dioxide 23.0, Anion Gap 6, BUN 29 H, Creatinine 1.05, Estim Creat Clear Calc 66.40, Est GFR (MDRD) Af Amer 90, Est GFR (MDRD) Non-Af 74, BUN/Creatinine Ratio 27.6 H, Glucose 117 H, Calcium 8.5 Current Medications Acetaminophen (Tylenol) 650 mg PO Q6H PRN PRN PRN Reason: Pain Score 1-10/Temp > 100.7 F Amiodarone HCl (Cordarone) 200 mg PO BID [facility] Last Admin: 11/24/19 09:03 Dose: 200 mg Documented by: Atorvastatin Calcium (Lipitor) 40 mg PO QHS [facility] Last Admin: 11/23/19 22:10 Dose: 40 mg Documented by: Carvedilol (Coreg) 6.25 mg PO BID [facility] Clopidogrel Bisulfate (Plavix) 75 mg PO DAILY [facility] Last Admin: 11/24/19 09:03 Dose: 75 mg Documented by: Diltiazem HCl (Cardizem) 30 mg PO Q8 [facility] Sodium Chloride () 250 mls @ 15 mls/hr IV .[id number] PRN PRN Reason: Saline Flush Sodium Chloride () 250 mls @ 15 mls/hr IV .[id number] PRN PRN Reason: Additional IVPB [facility]fusion [facility] Last Admin: 11/24/19 09:03 Dose: 50 mg Documented by: Ondansetron HCl (Zofran) 4 mg IV Q8H PRN PRN PRN Reason: NAUSEA/VOMITING Sacubitril/Valsartan (Entresto 49 Mg-51 Mg Tablet) 1 each PO BID [facility] Last Admin: 11/24/19 09:03 Dose: 1 each Documented by: Sodium Chloride () 10 - 40 ml IV UD PRN PRN Reason: SALINE FLUSH Last Admin: 11/24/19 10:33 Dose: 10 ml Documented by: Disposition: Home Minutes spent on discharge:: 33 Patient Condition:: Stable Meaningful Use Info Meaningful Use Diagnoses (Choose all that apply): None applicable Inpatient E&M: 71025 Disch Hosp
[2019-11-24] MEDS: Carvedilol 6.25 MG Tablet PO (12:48)
[2019-11-24] MEDS: dilTIAZem 30 MG Tablet PO (13:30)
--- NOTE | 2019-11-26 15:10 | CASEMGMT ---
MARK NOLASCO DC PHONE CALL DC DATE: 11/24/2019 DC DISPOSITION: Home DC DIAGNOSIS: New onset A-fib with RVR LACE/STRATA: 04/24 F/U APPTS MADE PRIOR TO DC: no PRESCRIPTIONS ACQUIRED BY PT: yes Intro role of CM to patient via phone. Pt states he has no questions, concerns, and just returned from PCP visit. No care improvement suggestions were given. Kimber CESPEDES RN ACM
== END 2019-11-24 16:31 | disposition home or self-care (01) | DRG 309 ==
LOC: ED 09:43 → PCU 10:55
PROVIDERS: Internal Medicine Cardiovascular Disease; Nurse Practitioner Family; Physician Assistant; Admitting Provider Internal Medicine; Emergency Provider Emergency Medicine; PCP Internal Medicine; Visit Provider Hospitalist
DX: I48.91 Unspecified atrial fibrillation (principal); N17.9 Acute kidney failure, unspecified; I31.3 Pericardial effusion (noninflammatory); Z95.5 Presence of coronary angioplasty implant and graft; I25.5 Ischemic cardiomyopathy; I25.10 Atherosclerotic heart disease of native coronary artery without angina pectoris; E66.9 Obesity, unspecified; E87.5 Hyperkalemia; I95.9 Hypotension, unspecified; Z79.02 Long term (current) use of antithrombotics/antiplatelets; Z79.899 Other long term (current) drug therapy; Z87.891 Personal history of nicotine dependence; Z68.33 Body mass index [BMI] 33.0-33.9, adult; E78.5 Hyperlipidemia, unspecified; I10 Essential (primary) hypertension; E86.0 Dehydration
CPT/HCPCS: 36415; 71045; 80048; 83735; 83880; 84484; 85025; 85652; 86141; 93005; 93306; 93798; 99285; 99406; J7030; J7050; Q9957; A4216; C8929

== ENCOUNTER 2019-12-21 09:15 | Outpatient (RCR) | payer MEDICARE, BC, SELFPAY ==
[2019-10-25 08:27] VITALS: BMI 33.1
[2019-10-25 09:02] VITALS: BMI 33.1
== END 2019-12-21 23:59 ==
LOC: CR 09:15
PROVIDERS: PCP Internal Medicine; Referring Provider Specialist; Visit Provider Specialist
DX: I25.10 Atherosclerotic heart disease of native coronary artery without angina pectoris (principal); Z95.5 Presence of coronary angioplasty implant and graft
CPT/HCPCS: 93798

== ENCOUNTER 2020-01-21 09:15 | Outpatient (RCR) | payer MEDICARE, BC, SELFPAY ==
[2019-10-25 09:02] VITALS: BMI 33.1
[2019-12-12 11:42] VITALS: BMI 33.0
--- NOTE | 2019-12-25 08:31 | CR.ITP_ITS ---
Exercise - 30-day Assessment - Visit Date of Eval: 12/25/19 Session #:: 17 - Physician Prescribed Exercise Modalities: Treadmill, Airdyne, NuStep Frequency: 3x/week for 12 weeks [36 sessions] Intensity: 60-80% of age predicted maximum heart rate reserve Current METSs:: 5.0 Target Heart Rate:: 98-128 Current RPE:: 12-14 Maximum Excercise HR:: 78 Resting Blood Pressure: 118/78 - CONTROLLED Maximum Exercise Blood Pressure: 140/80 EKG Type: NSR with T wave inversion and rare PACs. - Outcomes & Goals Goals:: Verbalizes understanding of THR, RPE & goal METS by session 6, Documents in home exercise log/reports 30 min aerobic 5 day/wk by DC, Demonstrates accurate pulse taking by DC - Intervention & Plan Exercise Program Goals: Instruct on personal THR & RPE, Instruct on MET level & personal MET goal, Show patient to take own pulse /validate performance until accurate, Instruct on home exercise - 30-day Reassessments 30 day Reassessments:: Progressing - Physical Activity Home Exercise Physical Activity - Home Exercise: Safe Exercise, Warm-up, Self-monitoring, Cool-Down, Home Exercise > 30 min Daily, Sitting Time <3 hours/daily - Outcomes & Goals Outcomes/Goals: Demonstrates correct Warm-up/exercise Cool-Down (S3) if = 2.5 METs, Verbalizes symptoms of exercise intolerance by Session 3 (S3), Demonstrate safe equipment use (S3) & follows exercise prescrition (6) - Intervention & Plan Plan/Intervention: Instruct warm-up & cool-down if exercising at > 2 METs, Instruct on symptoms of exercise intolerance & actions to take, Instruct & monitor on saf, Assess intial functional capacity & safety risk - 30-day Reassessments 30 day Reassessments:: Progressing Nutrition - 30-Day Assessment - Program Goals Nutrition Program Goals: LDL <100 optimal. 100 - 129 Near optimal. 130 - 159 Borderline High. 160 - 189 High. Total Cholesterol <200 desirable. 200 - 239 Borderline High. >/= 240 High. HDL < 40 Low >/=60 High. Triglycerides <150 desirable. <199 optimal. VlDL 5 - 40. HgbA1C <7%. BMI <25 Patient has diagnosis of Hyperlipidemia (ICD E78)?: Yes - Visit Date of Assessment:: 12/25/19 Session #:: 17 - Cholesterol/Lipids Triglycerides (mg/dL): 96 - 10/11/2019 Total Cholesterol (mg/dL): 186 LDL Cholesterol (mg/dL): 114 HDL Cholesterol (mg/dL): 53 Determine presence & major risk factors that modify LDL goal: Hypertension or hypertensive medication, Family history of premature CHD in Male < 55 years: female <65 yearsFa, Age men > 45 years; women >/= 55 years Outcomes/Goals: Pt IDs own risk factors & lifestyle modifications by Session 10, Verbalizes symptoms of angina & response by session 3., Pt independently manages Intervention/Plan: Instruct on personal lipid levels & lipid goals/NCEP guidelines, Instruct on cholesterol Referral to dietitian:: Yes - MEDICAL NUTRITION THERAPY 30-day Reassessments:: Progressing - Diabetes (Other Core Measures) Diabetes Type: Not Applicable - Weight Mgt (Other Care) Not Applicable: No Height: 5 ft 10 in Weight:: 227 lb BMI: 32.5 Diagnosis Overweight/Obesity BMI> 30% ICD-10 E66: Yes Diagnosis High BMI/Morbid Obesity BMI> 35% ICD-10 Z68: No Outcomes/Goals: Pt sets, maintains & shows weight loss goal & trend during rehab Intervention/Plan: Instruct on ideal BMI & set weight loss goal w/patient, Assist pt to ID & incorporate diet changes for weight loss by S9, Refer to Structured Weight Loss program as appropriate, Encourage goal of using 250- 300dcal per session for weight loss 30 day Reassessments:: Progressing - Healthy Eating Habits Will attend diet classes:: Yes Outcomes/Goals:: Consume diet rich in vegs,fruits,whole grain/high fiber,fish,l gabriella meat, Limit sat/trans fats,cholesterol & added salts & sugars Intervention/Plan:: Assess current eating habits 30-day Reassessments:: Progressing - Education Gave educational materials for:: Healthy eating Medical- 30-Day Assessment - Visit Date of Eval: 12/25/19 Session #:: 17 - Medication Compliance Preventative Medication(s):: Aspirin, Clopidogrel/P2Y12 inhibit, Statin/lipid, Beta arielle, Warfarin/Coumadin H/O mental health issues: depression, anxiety, or addiction?: No Doesn?t believe in the benefits of treatment?: No Believes medications are unnecessary or harmful?: No Has a concern about medication side effects?: No Expresses concern over the cost of medications?: No Outcomes/Goals: Verbalizes medications,desired effect & common side effects @ DC, Pt self-reports following medication regimen, Keeps card in wallet w/medications listed by DC Interventions/plans: Instruct on medication effects & side effects, Review medication list w/patient every two weeks, Instruct importance of taking meds as ordered & assist problem solving 30-day Reassessments:: Progressing - Tobacco Use Tobacco Use: Non-smoker - Hypertension Hypertension Diagnosis:: Hypertension ICD-10 I10 Resting Blood Pressure:: 118/78 [place] [employer] Hypertension Guidelines: [place] [employer] Hypertension Guidelines. Normal BP Less than 120/80. Elevated BP 120/80. Hypertension Stage 1: BP 130-139/80-89. Hypertesnion Stage 2: BP 140 or high er/90 or higher. Hypertension Crisis: BP higher than 180/120 Peak Exercise Blood Pressure:: 140/80 Outcomes/Goals: Able to verbalize/achieve optimal blood pressure <130/80, Incorporates diet changes & exercise for blood pressure control by DC Interventions/plan: Instruct on optimal blood pressure, hypertension & medications, Instruct on effects of sodium, alcohol, stress, exercise &hypertension 30 day Reassessments:: Progressing - Tobacco Cessation Referral Smoking Cessation Referral:: No Individual Education/Counseling:: No Education Schedule Given:: Yes Psychosocial - 30-Day Assess - VIsit Date of Eval: 12/25/19 Session #:: 17 Not Applicable: Yes History of previous Mental disease:: No - Target Goals Target Goals: Assess presence or absence of depression. Using a valid screening tool, maximizes coping skills. Positive support system - Psychosocial Test Tool Used:: Cipriano Dorman QOL Cardiac, PHQ-9 Questionnaire phq-9 Severity: Severity. 1-4 Minimal Depression. 5-9 Mild Depression. 10-14 Moderate Depression. 15-19 Moderately Sever Depression. 20-27 Severe Depression. Rule: - Referral to Behavioral Health PS - Interventions: Yes Attend Stress Management Classes, No Referral to Behavioral Health if PHQ-9 score >9:, No Referral to [facility], No Referral to Physician if PHQ-9 if score is 5-9: - Outcomes/Goals: See list Psychosocial Outcomes/Goals:: ID's personal stressors & 2 strategies to manage stress by discharge - Intervention/Plan: See List Interventions/Plan:: Assess stressors,coping strategies & signs of derpression on admission, Instruct/assist pt to develop coping & personal stress Mgt chiquita goode, Instruct patient to recognize signs & symptoms of depression, Instruct patient to recog - 30-day Reassessments: 30 day Reassessments:: Progressing Patient Health Questionnaire 30-Day Re-eval Assessment 1. Little interest or pleasure in doing things: Not at all 2. Feeling down, depressed, or hopeless: Not at all 3. Trouble falling or staying asleep, or sleeping too much: Not at all 4. Feeling tired or having little energy: Not at all 5. Poor appetite or overeating: Several days 6. Feeling bad about yourself -- or that you are a failure or have let yourself or your family down: Not at all 7. Trouble concentrating on things, such as reading the newspaper or watching television: Not at all 8. Moving or speaking so slowly that other people could have noticed. Or the opposite - being so fidgety or restless that you have been moving around a lot more than usual: Not at all 9. Thoughts that you would be better off , or of hurting yourself in some way: Not at all How difficult have these problems made it for you to do your work, take care of things at home, or get along with other people?: Not difficult at all Total Score: 1 Self-Efficacy 30-Day Re-eval Assessment We would like to know how confident you are in doing certain activities. Please select your confidence level for:: Select your confidence level for the following using the scale 1-10 where 1 is not at all confident and 10 is totally confident. Your score is the average of all 6 responses. Fatigue: How confident are you that you can keep the fatigue caused by your disease from interfering with the things you want to do? Select Number: 5 Physical Discomfort or Pain: How confident are you that you can keep the physical discomfort or pain of your disease from interfering with the things you want to do? Select Number: 6 Emotional Distress: How confident are you that you can keep the emotional distress caused by your disease from interfering with the things you want to do? Select Number: 8 Other Symptoms or Health Problems: How confident are you that you can keep other symptoms or health problems from interfering with the things you want to do? Select Number: 9 Different Tasks and Activities: How confident are you that you can do the different tasks and activities needed to manage your health condition so as to reduce your need to see a doctor? Select Number: 9 Medication: How confident are you that you can do things other than just taking medication to reduce how much your illness affects your everyday life? Select Number: 10 Total Score:: 7
[2019-12-25 08:38] VITALS: BP 118/78; BP 140/80; BMI 32.5
== END 2020-01-21 23:59 ==
LOC: CR 09:15
PROVIDERS: PCP Internal Medicine; Referring Provider Specialist; Visit Provider Specialist
DX: I25.10 Atherosclerotic heart disease of native coronary artery without angina pectoris (principal); Z95.5 Presence of coronary angioplasty implant and graft
CPT/HCPCS: 93798

== ENCOUNTER → 2020-02-08 09:38 | Outpatient (CLI) | payer MEDICARE, BC, SELFPAY ==
[2019-12-25 08:38] VITALS: BMI 32.5
[2020-01-14 10:00] VITALS: BMI 32.5
[2020-01-25 08:32] VITALS: BMI 32.7
--- NOTE | 2020-02-08 09:39 | ECHOL_ITS ---
Reason For Study: CHF Procedure This was a limited 2D transthoracic echocardiogram. Exam performed in department. Left Ventricle Normal LV size. The estimated ejection fraction is 55 %. Pericardium/Pleural No pericardial effusion. MMode/2D Measurements & Calculations LVIDd: 4.9 cm IVSd: 0.97 cm LVAd ap4: 33.9 cm2 LVIDs: 3.6 cm LVPWd: 0.96 cm EDV(MOD-sp4): 101.0 ml FS: 25.4 % EDV(sp4-el): 102.7 ml LVAs ap4: 21.7 cm2 ESV(MOD-sp4): 49.7 ml ESV(sp4-el): 50.3 ml EF(MOD-sp4): 50.8 % EF(sp4-el): 51.1 % SV(MOD-sp4): 51.3 ml SV(sp4-el): 52.5 ml Interpretation Summary The estimated ejection fraction is 55 %. No pericardial effusion. Limited echo done to f/u on pericardial effusion and LVEF reveals preserved EF and no significant effusion Ordering Physician: Suzi Bellamy Referring Physician: KAVON HARMON Performed By: Ila Oakley, RDCS, RVT
== END ==
PROVIDERS: PCP Internal Medicine; Referring Provider Specialist; Visit Provider Specialist
DX: I50.9 Heart failure, unspecified (principal); J96.01 Acute respiratory failure with hypoxia; I25.10 Atherosclerotic heart disease of native coronary artery without angina pectoris; Z95.5 Presence of coronary angioplasty implant and graft
CPT/HCPCS: 93308; 93798

== ENCOUNTER 2020-02-18 09:15 | Outpatient (RCR) | payer MEDICARE, BC, SELFPAY ==
[2019-12-25 08:38] VITALS: BMI 32.5
[2020-01-14 10:00] VITALS: BMI 32.5
[2020-01-22 00:36] VITALS: BP 118/78; BP 140/80
--- NOTE | 2020-01-25 08:20 | PCM.CR.ITP ---
Exercise - 90-day Assessment - Visit Date of Eval: 01/25/20 Session #:: 26 - Patient missed 9 sessions due to medical (ER). - Physician Prescribed Exercise Modalities: Treadmill, Airdyne, NuStep Frequency: 3x/week for 12 weeks [36 sessions] Intensity: 60-80% of age predicted maximum heart rate reserve Current METSs:: 5.5 Target Heart Rate:: 98-128 Current RPE:: 14-15 Maximum Excercise HR:: 80 Resting Blood Pressure: 120/70 Maximum Exercise Blood Pressure: 130/68 EKG Type: NSR - Outcomes & Goals Goals:: Verbalizes understanding of THR, RPE & goal METS by session 6, Documents in home exercise log/reports 30 min aerobic 5 day/wk by DC, Demonstrates accurate pulse taking by DC - Intervention & Plan Exercise Program Goals: Instruct on personal THR & RPE, Instruct on MET level & personal MET goal, Show patient to take own pulse /validate performance until accurate, Instruct on home exercise - 30-day Reassessments 30 day Reassessments:: Progressing - Physical Activity Home Exercise Physical Activity - Home Exercise: Safe Exercise, Warm-up, Self-monitoring, Cool-Down, Home Exercise > 30 min Daily, Sitting Time <3 hours/daily - Outcomes & Goals Outcomes/Goals: Demonstrates correct Warm-up/exercise Cool-Down (S3) if = 2.5 METs, Verbalizes symptoms of exercise intolerance by Session 3 (S3), Demonstrate safe equipment use (S3) & follows exercise prescrition (6) - Intervention & Plan Plan/Intervention: Instruct warm-up & cool-down if exercising at > 2 METs, Instruct on symptoms of exercise intolerance & actions to take, Instruct & monitor on saf, Assess intial functional capacity & safety risk - 30-day Reassessments 30 day Reassessments:: Progressing Nutrition - 90-Day Assessment - Program Goals Nutrition Program Goals: LDL <100 optimal. 100 - 129 Near optimal. 130 - 159 Borderline High. 160 - 189 High. Total Cholesterol <200 desirable. 200 - 239 Borderline High. >/= 240 High. HDL < 40 Low >/=60 High. Triglycerides <150 desirable. <199 optimal. VlDL 5 - 40. HgbA1C <7%. BMI <25 Patient has diagnosis of Hyperlipidemia (ICD E78)?: Yes - Visit Date of Assessment:: 01/25/20 Session #:: 26 - Cholesterol/Lipids Determine presence & major risk factors that modify LDL goal: Hypertension or hypertensive medication, Family history of premature CHD in Male < 55 years: female <65 yearsFa, Age men > 45 years; women >/= 55 years Outcomes/Goals: Pt IDs own risk factors & lifestyle modifications by Session 10, Verbalizes symptoms of angina & response by session 3., Pt independently manages Intervention/Plan: Instruct on personal lipid levels & lipid goals/NCEP guidelines, Instruct on cholesterol Referral to dietitian:: Yes 30-day Reassessments:: Progressing - Diabetes (Other Core Measures) Diabetes Type: Not Applicable - Weight Mgt (Other Care) Not Applicable: Yes Height: 5 ft 10 in Weight:: 228 lb BMI: 32.7 Diagnosis Overweight/Obesity BMI> 30% ICD-10 E66: Yes Diagnosis High BMI/Morbid Obesity BMI> 35% ICD-10 Z68: Yes Outcomes/Goals: Pt sets, maintains & shows weight loss goal & trend during rehab Intervention/Plan: Instruct on ideal BMI & set weight loss goal w/patient, Assist pt to ID & incorporate diet changes for weight loss by S9, Encourage goal of using 250-300dcal per session for weight loss 30 day Reassessments:: Progressing - Healthy Eating Habits Will attend diet classes:: Yes Outcomes/Goals:: Consume diet rich in vegs,fruits,whole grain/high fiber,fish,lean meat, Limit sat/trans fats,cholesterol & added salts & sugars Intervention/Plan:: Assess current eating habits 30-day Reassessments:: Progressing - Education Gave educational materials for:: Healthy eating Medical- 90-Day Assessment - Visit Date of Eval: 01/25/20 Session #:: 26 - Medication Compliance Preventative Medication(s):: Aspirin, DONNIE inhibitor, Clopidogrel/P2Y12 inhibit, Ticagrelor/P2Y12 inhibitor, Statin/lipid, Beta arielle, Warfarin/Coumadin, Eliquis, ARB (Angiotensi Rcap) H/O mental health issues: depression, anxiety, or addiction?: No Doesn?t believe in the benefits of treatment?: No Believes medications are unnecessary or harmful?: No Has a concern about medication side effects?: No Expresses concern over the cost of medications?: No Outcomes/Goals: Verbalizes medications,desired effect & common side effects @ DC, Pt self-reports following medication regimen, Keeps card in wallet w/medications listed by DC Interventions/plans: Instruct on medication effects & side effects, Review medication list w/patient every two weeks, Instruct importance of taking meds as ordered & assist problem solving 30-day Reassessments:: Progressing - Tobacco Use Tobacco Use: Non-smoker Outcomes/Goals: Smoking cessation achieved or maintained by discharge, Identify aids/strategies for achieving smoking cessation by session 6 Interventions/plan: Instruct on effects of smoking & provide smoking cessation resource, Assist pt to set quit date & provide encouragement, Assist pt to develop strategies to achieve/maintain quit date, Assist pt w/nicotine replacement & medication for cessation success 30-day Reassessments:: Progressing - Hypertension Hypertension Diagnosis:: Hypertension ICD-10 I10 Resting Blood Pressure:: 120/70 [place] [employer] Hypertension Guidelines: [place] [employer] Hypertension Guidelines. Normal BP Less than 120/80. Elevated BP 120/80. Hypertension Stage 1: BP 130-139/80-89. Hypertesnion Stage 2: BP 140 or higher/90 or higher. Hypertension Crisis: BP higher than 180/120 Peak Exercise Blood Pressure:: 130/68 Outcomes/Goals: Able to verbalize/achieve optimal blood pressure <130/80, Incorporates diet changes & exercise for blood pressure control by DC Interventions/plan: Instruct on optimal blood pressure, hypertension & medications, Instruct on effects of sodium, alcohol, stress, exercise &hypertension 30 day Reassessments:: Progressing - Tobacco Cessation Referral Smoking Cessation Referral:: No Individual Education/Counseling:: No Education Schedule Given:: No Psychosocial - 90-Day Assess - VIsit Date of Eval: 01/25/20 Session #:: 26 Not Applicable: No History of previous Mental disease:: No - Target Goals Target Goals: Assess presence or absence of depression. Using a valid screening tool, maximizes coping skills. Positive support system - Psychosocial Test Tool Used:: Cipriano Dorman QOL Cardiac, PHQ-9 Questionnaire phq-9 Severity: Severity. 1-4 Minimal Depression. 5-9 Mild Depression. 10-14 Moderate Depression. 15-19 Moderately Sever Depression. 20-27 Severe Depression. Rule: - Referral to Behavioral Health PS - Interventions: Yes Attend Stress Management Classes, No Referral to Behavioral Health if PHQ-9 score >9:, No Referral to [facility], No Referral to Physician if PHQ-9 if score is 5-9: - Outcomes/Goals: See list Psychosocial Outcomes/Goals:: ID's personal stressors & 2 strategies to manage stress by discharge - Intervention/Plan: See List Interventions/Plan:: Assess stressors,coping strategies & signs of derpression on admission, Instruct/assist pt to develop coping & personal stress Mgt strategies, Instruct patient to recognize signs & symptoms of depression, Instruct patient to recog - 30-day Reassessments: 30 day Reassessments:: Progressing Patient Health Questionnaire 90-Day Re-eval Assessment 1. Little interest or pleasure in doing things: Not at all 2. Feeling down, depressed, or hopeless: Not at all 3. Trouble falling or staying asleep, or sleeping too much: Not at all 4. Feeling tired or having little energy: Not at all 5. Poor appetite or overeating: Not at all 6. Feeling bad about yourself -- or that you are a failure or have let yourself or your family down: Not at all 7. Trouble concentrating on things, such as reading the newspaper or watching television: Not at all 8. Moving or speaking so slowly that other people could have noticed. Or the opposite - being so fidgety or restless that you have been moving around a lot more than usual: Not at all 9. Thoughts that you would be better off , or of hurting yourself in some way: Not at all Total Score: 0 Self-Efficacy 90-Day Re-eval Assessment We would like to know how confident you are in doing certain activities. Please select your confidence level for:: Select your confidence level for the following using the scale 1-10 where 1 is not at all confident and 10 is totally confident. Your score is the average of all 6 responses. Fatigue: How confident are you that you can keep the fatigue caused by your disease from interfering with the things you want to do? Select Number: 10 Physical Discomfort or Pain: How confident are you that you can keep the physical discomfort or pain of your disease from interfering with the things you want to do? Select Number: 10 Emotional Distress: How confident are you that you can keep the emotional distress caused by your disease from interfering with the things you want to do? Select Number: 10 Other Symptoms or Health Problems: How confident are you that you can keep other symptoms or health problems from interfering with the things you want to do? Select Number: 10 Different Tasks and Activities: How confident are you that you can do the different tasks and activities needed to manage your health condition so as to reduce your need to see a doctor? Select Number: 10 Medication: How confident are you that you can do things other than just taking medication to reduce how much your illness affects your everyday life? Select Number: 10 Total Score:: 10
[2020-01-25 08:32] VITALS: BP 120/70; BP 130/68; BMI 32.7
== END 2020-02-20 23:59 ==
LOC: CR 09:15
PROVIDERS: PCP Internal Medicine; Referring Provider Specialist; Visit Provider Specialist
DX: I25.10 Atherosclerotic heart disease of native coronary artery without angina pectoris (principal); Z95.5 Presence of coronary angioplasty implant and graft
CPT/HCPCS: 93798

== ENCOUNTER → 2021-05-08 09:57 | Outpatient (CLI) | payer MEDICARE, BC, SELFPAY ==
[2020-01-25 08:32] VITALS: BMI 32.7
[2021-05-08 11:37] LABS: AST(SGOT) 14 U/L (15-37); Alanine Aminotransfer ALT/SGPT 26 U/L (16-61); Albumin, Serum 3.7 g/dL (3.2-5.0); Alkaline Phosphatase 115 U/L (45-117); Bilirubin, Direct 0.14 mg/dL (0.00-0.30); Cholesterol 131 mg/dL (200); Globulin 3.5 g/dL (2.2-4.2); High Density Lipoprotein 44 mg/dL; Protein, Total 7.2 g/dL (6.4-8.2); Triglycerides 115 mg/dL; Very Low Density Lipoprotein 23 mg/dL (5-40)
== END ==
PROVIDERS: PCP Internal Medicine; Referring Provider Internal Medicine Cardiovascular Disease; Visit Provider Internal Medicine Cardiovascular Disease
DX: E78.00 Pure hypercholesterolemia, unspecified (principal)
CPT/HCPCS: 36415; 80061; 80076

== ENCOUNTER → 2022-06-17 | Outpatient (CLI) | payer MEDICARE, BC, SELFPAY ==
[2020-01-25 08:32] VITALS: BMI 32.7
== END | disposition home or self-care (01) ==
LOC: SL 21:50
PROVIDERS: PCP Internal Medicine; Referring Provider Nurse Practitioner Family; Visit Provider Nurse Practitioner Family
DX: G47.10 Hypersomnia, unspecified (principal)
CPT/HCPCS: 95810

== ENCOUNTER → 2022-07-26 | Outpatient (CLI) | payer MEDICARE, BC, SELFPAY ==
[2020-01-25 08:32] VITALS: BMI 32.7
== END | disposition home or self-care (01) ==
LOC: SL 20:05
PROVIDERS: PCP Internal Medicine; Visit Provider Nurse Practitioner Acute Care
DX: G47.33 Obstructive sleep apnea (adult) (pediatric) (principal)
CPT/HCPCS: 95811

== ENCOUNTER → 2022-12-08 | Outpatient (CLI) | payer MEDICARE, BC, SELFPAY ==
[2020-01-25 08:32] VITALS: BMI 32.7
--- NOTE | 2022-12-08 07:54 | ART_ITS ---
Reason For Study: Claudication Procedure A bilateral lower extremity continuous wave Doppler with analog waveform analysis and ankle brachial indexes. Left Segmental Pressures Left brachial= 120mmHg. Left posterior tibial artery = 146mmHg. Left dorsalis pedis artery = 133mmHg. The left dorsalis pedis waveforms are triphasic. The left posterior tibial artery waveforms are triphasic. Right Segmental Pressures Right brachial= 123mmHg. Right posterior tibial artery = 146mmHg. Right dorsalis pedis artery = 137mmHg. The right dorsalis pedis waveforms are triphasic. The right posterior tibial artery waveforms are triphasic. Indices The right ankle brachial index by the dorsalis pedis is 1.11. The right ankle brachial index by the posterior tibial artery is 1.19. The left ankle brachial index by the dorsalis pedis is 1.08. The left ankle brachial index by the posterior tibial artery is 1.19. VL/Ankle Brachial Index Interpretation Summary Normal right lower extremity posterior tibialis and dorsalis pedis ankle-brachi al index of 1.19 and 1.11 respectively with normal triphasic Doppler waveforms Normal left lower extremity posterior tibialis and dorsalis pedis ankle-brachia l indices of 1.19 and 1.08 respectively with normal triphasic Doppler waveforms Ordering Physician: Eugene Hodge Referring Physician: Alberta Morales M.D. Performed By: Mayra Mack RVT
== END | disposition home or self-care (01) ==
LOC: CVS 07:53
PROVIDERS: PCP Internal Medicine; Referring Provider Internal Medicine Cardiovascular Disease; Visit Provider Internal Medicine Cardiovascular Disease
DX: I73.9 Peripheral vascular disease, unspecified (principal)
CPT/HCPCS: 93922

== ENCOUNTER → 2024-09-11 | Outpatient (CLI) | payer MEDICARE, BC, SELFPAY ==
[2020-01-25 08:32] VITALS: BMI 32.7
--- NOTE | 2024-09-11 13:42 | ECHOCS_ITS ---
Reason For Study Reason For Study: HTN Procedure This was a 2D Doppler, Color Flow transthoracic echocardiogram. The study was technically difficult. Contrast injection was performed. Exam performed in department. Left Ventricle Normal LV size. Left ventricular systolic function is normal. The left ventricular ejection fraction is 55 %. No regional wall motion abnormalities noted. Right Ventricle Normal RV size. Normal systolic function. Atria Normal left atrium. Normal right atrium. Mitral Valve Normal mitral valve. Tricuspid Valve Normal tricuspid valve. Mild (1+) tricuspid valve insufficiency. Pulmonary artery systolic pressure is 30 mmHg. Aortic Valve Trisinus/trileaflet aortic valve. Mild focal aortic valve thickening. Great Vessels Normal aortic root. Pericardium/Pleural No pericardial effusion. Medication 22 gauge I.V. with prn adaptor inserted into right arm. Diluted definity 4ml given slow IV push to enhance endocardial definition. MMode/2D Measurements & Calculations LVIDd: 5.1 cm IVSd: 1.2 cm Ao root diam: 3.7 cm LVIDs: 3.2 cm LVPWd: 1.2 cm RVDd: 3.8 cm FS: 37.1 % LAV(MOD-bp): 59.7 ml LVAd ap4: 34.5 cm2 SV(MOD-sp4): 70.1 ml LAV(MOD-bp) Indexed: 26.5 ml/m2 LVLd ap4: 8.9 cm SI(MOD-sp4): 31.1 ml/m2 LAV(MOD-sp2): 64.5 ml EDV(MOD-sp4): 111.4 ml LAV(MOD-sp4): 52.5 ml EDV(sp4-el): 114.3 ml LVAs ap4: 18.6 cm2 LVLs ap4: 6.9 cm ESV(MOD-sp4): 41.3 ml ESV(sp4-el): 42.5 ml EF(MOD-sp4): 62.9 % EF(sp4-el): 62.9 % SV(sp4-el): 71.8 ml LA A4 area: 19.0 cm2 LA dimension(2D): 4.3 cm RA A4 area: 16.6 cm2 TAPSE: 2.0 cm Time Measurements MV dec time: 0.24 sec Doppler Measurements & Calculations MV E max jay: 52.7 cm/sec Lat Peak E' Jay: 9.8 cm/sec Med Peak E' Jay: 8.7 cm/sec MV A max jay: 75.3 cm/sec E/E' lat: 5.4 E/E' med: 6.0 MV E/A: 0.70 MV V2 max: 79.3 cm/sec MV P1/2t max jay: 55.5 cm/sec Ao V2 max: 165.5 cm/sec MV max P.5 mmHg MV P1/2t: 75.5 msec Ao max P.0 mmHg MV V2 mean: 41.3 cm/sec Ao V2 mean: 115.0 cm/sec MV mean P.82 mmHg MV dec slope: 215.5 cm/sec2 Ao mean P.0 mmHg MV V2 VTI: 19.5 cm MVA(P1/2t): 2.9 cm2 Ao V2 VTI: 36.4 cm LV V1 max: 95.0 cm/sec PA V2 max: 133.0 cm/sec TR max jay: 261.2 cm/sec LV V1 max P.6 mmHg TR max P.3 mmHg ECHO/Echo Complete W/ Contrast Interpretation Summary Normal LV size. Left ventricular systolic function is normal. The left ventricular ejection fraction is 55 %. Pulmonary artery systolic pressure is 30 mmHg. Contrast injection was performed. Ordering Physician: Eugene Hodge Referring Physician: Eugene Hodge Performed By: Edward Nieto RCS
== END | disposition home or self-care (01) ==
LOC: CVS 13:41
PROVIDERS: PCP Internal Medicine; Referring Provider Internal Medicine Cardiovascular Disease; Visit Provider Internal Medicine Cardiovascular Disease
DX: I25.5 Ischemic cardiomyopathy (principal)
CPT/HCPCS: 93306; Q9957; A4216; C8929